=== PATIENT | male | born 1960 | race Caucasian/White ===

== ENCOUNTER 2020-11-06 08:14 | Emergency (ER) | payer OTHER ==
[~2020-11-06] VITALS: Ht 182.9 cm; Wt 83.0 kg
[~2020-11-06 08:14] MED LIST: CLON-77 PO; INSU300I SQ; VALA10008 PO; VALS80TA3 PO
[2020-11-06 08:26] VITALS: BP 187/83
[2020-11-06] MEDS ORDERED: SULF1TAB24 PO (09:32)
[2020-11-06] MEDS ORDERED: CEPH-264 PO (09:32)
--- NOTE | 2020-11-06 09:37 | PHYS DOC ---
Past Medical History Past Medical History: Anxiety, Diabetes-Type II, Hypertension Past Surgical History: No Surgical History Smoking Status: Current Every Day Smoker Alcohol Use: Occasionally Drug Use: Marijuana General Adult EDM: Chief Complaint: ABSCESS HPI: HPI: 60-year-old male presents the ED with complaints of redness and pain around his bellybutton for the past few days. Today he was scratching inside top part of his umbilicus when he noticed malodorous discharge. No history of recent procedures, surgeries or piercings. No prior history of MRSA but states his son is currently being stage for abdominal cancer. History of prediabetes that resolved after patient lost weight. Has no routine primary care physician and takes no routine medications. NKDA. Review of Systems: Review of Systems: Constitutional: Denies fever or chills. [] HENT: Denies nasal congestion or sore throat. [] Respiratory: Denies cough or shortness of breath. [] Cardiovascular: Denies chest pain or edema. [] GI: Denies nausea, vomiting, Heart Score: Risk Factors: Risk Factors: DM, Current or recent (<one month) smoker, HTN, HLP, family history of CAD, obesity. Risk Scores: Score 0 - 3: 2.5% MACE over next 6 weeks - Discharge Home Score 4 - 6: 20.3% MACE over next 6 weeks - Admit for Clinical Observation Score 7 - 10: 72.7% MACE over next 6 weeks - Early Invasive Strategies Allergies: Allergies: Allergies Coded Allergies Type Severity Reaction Last Updated Verified No Known Drug Allergies 07/31/16 No Physical Exam: PE: Constitutional: Well developed, well nourished, HENT: Normocephalic, atraumatic, Eyes: EOMI, conjunctiva normal, no discharge. Neck: Normal range of motion, supple, Cardiovascular: S1/2 present, regular rhythm Lungs & Thorax: Speaking in full sentences, bilateral equal chest rise, Abdomen: soft, no tenderness, 7x4.5 centimeter region of flat erythema, no induration surrounding umbilicus, umbilicus with scant yellow purulent discharge-no obvious abscess Skin: Warm, dry, no crepitus Back: No tenderness, no CVA tenderness. [] Extremities: No tenderness, no cyanosis, Neurologic: Alert and oriented X 3, normal motor function, normal sensory function, no focal deficits noted. [] Psychologic: Affect normal, judgement normal, mood normal. [] Current Patient Data: Vital Signs: Vital Signs Date Time Temp Pulse Resp B/P (MAP) Pulse Ox O2 Delivery O2 Flow Rate FiO2 11/06/20 08:26 97.6 69 18 187/83 (117) 98 Room Air 97.6 EKG: EKG: [] Radiology/Procedures: Radiology/Procedures: [] Course & Med Decision Making: Course & Med Decision Making Pertinent Labs and Imaging studies reviewed. (See chart for details) Concern for umbilical abscess with surrounding cellulitis s/p accidental "I&D" by pt. patient well-appearing with asymptomatic hypertension. No known h/o mrsa -we will cover for community-acquired with Keflex and Bactrim. Good rx coupons given. Will discharge home with strict ED return precautions were given for worsening rash, abdominal pain, fever or flulike illness. Encouraged urgent outpatient follow-up with PMD and/or wound care center in 48 to 72 hours. Life- threatening processes were considered but are low suspicion at this time, given history, physical exam and ED workup. Pt was educated on all prescription medications and adverse effects. All patient's questions were answered and pt was stable at time of discharge. Life/limb-threatening differential includes but is not limited to, erythema multiforme, david-stephani syndrome, toxic epidermal necrolysis, staphylococcal scalded skin syndrome, necrotizing fasciitis/myositis/cellulitis, purpura fulminans, heparin or warfarin induced skin necrosis, angioedema, anaphylaxis drug rash, disseminated intravascular coagulation, disseminated gonococcal disease, vasculitis, septicemia, petechial disorder or coagulopathy, viral exanthem, Kawasaki's disease. I spoken with the patient and her caregivers. I explained the patient's condition, diagnoses and treatment plan based on the information available to me at this time. I have answered the patient and her caregiver's questions and addressed any concerns. The patient and her caregivers have a good understanding of patient's diagnosis, condition and treatment plan as can be expected at this point. Vital signs have been stable. Patient's condition is stable and appropriate for discharge from the emergency department. Patient will pursue further outpatient evaluation with primary care physician or other designated or consulting physician as outlined in the discharge instructions. The patient and/or caregivers are agreeable to this plan of care and follow-up instructions have been explained in detail. The patient and/or caregivers have received these instructions in written form and have expressed an understanding of the discharge instructions. The patient and/or caregivers are aware that any significant change of condition or worsening of symptoms should prompt immediate return to this or the closest emergency department or call to [email or web address] Vásquez Disclaimer: Fahad Disclaimer: This electronic medical record was generated, in whole or in part, using a voice recognition dictation system. Departure Departure Impression: Primary Impression: Abdominal abscess Additional Impression: Abdominal wall cellulitis Disposition: 01 DC HOME SELF CARE/HOMELESS Condition: STABLE Referrals: NO PCP (PCP) Follow-up in 48 to 72 hours for BP and wound care check FOLLOW UP WITH FAMILY MEDICINE: Family Medicine Address: [address] [place] [address] Patient Instructions: Abscess, Care After, Cellulitis Additional Instructions: FOLLOW UP WITH WOUND CARE: [facility] Address: [address], [address] [place] [address] EMERGENCY DEPARTMENT GENERAL DISCHARGE INSTRUCTIONS Thank you for coming to [facility] Emergency Department (ED) today and trusting us with you care. We trust that you had a positive experience in our Emergency Department. If you wish to speak to the department management, you may call the Director at [phone]. YOUR FOLLOW UP INSTRUCTIONS ARE FOLLOWS: 1. Do you have a private Doctor? If you do not have a private doctor, please ask for a resource list of physicians or clinics that may be able to assist you with follow up care. 2. The Emergency Physicain has interpreted your x-rays. The X-Ray specialist will also review them. If there is a change in the findings, you will be notified in 48 hours when at all possible. 3. A lab test or culture has been done, your results will be reviewed and you will be notified if you need a change in treatment. ADDITIONAL INSTRUCTIONS AND INFORMATION: 1. Your care today has been supervised by a physician who is specially trained in emergency care. Many problems require more than one evaluation for a complete diagnosis and treatment. We recommend that you schedule your follow up appointment as recommended to ensure complete treatment of you illness or injury. If you are unable to obtain follow up care and continue to have a problem, or if your condition worsens, we recommend that you return to the ED. 2. We are not able to safely determine your condition over the phone nor are we able to give sound medical advice over the phone. For these safety reasons, if you call for medical advice we will ask you to come to the ED for further evaluation. 3. If you have any questions regarding these discharge instructions please call the ED at [phone]. SAFETY INFORMATION: In the interest of safety, wellness, and injury prevention; we encourage you to wear your sealbelt, if you smoke; quite smoking, and we encourage family to use a protective helmet for bicycling and other sporting events that present an increased risk for head injury. IF YOUR SYMPTOMS WORSEN OR NEW SYMPTOMS DEVELOP, OR YOU HAVE CONCERNS ABOUT YOUR CONDITION; OR IF YOUR CONDITION WORSENS WHILE YOU ARE WAITING FOR YOUR FOLLOW UP APPOINTMENT; EITHER CONTACT YOUR PRIMARY CARE DOCTOR, THE PHYSICIAN WHOSE NAME AND NUMBER YOU WERE GIVEN, OR RETURN TO THE ED IMMEDIATELY. Scripts Sulfamethoxazole/Trimethoprim (BACTRIM DS TABLET) 1 Each Tablet 1 TAB PO BID for infection for 10 Days, #20 TAB Prov: DIMITRI STAFFORD DO 11/06/20 Cephalexin (KEFLEX) 500 Mg Capsule 2 CAP PO Q12HR, #40 CAP Prov: DIMITRI STAFFORD DO 11/06/20 DIMITRI STAFFORD DO Nov 06, 2020 09:37
== END 2020-11-06 10:00 | disposition home or self-care (01) ==
LOC: ER 08:14
DX: L02.211 Cutaneous abscess of abdominal wall (principal); F41.9 Anxiety disorder, unspecified; E11.9 Type 2 diabetes mellitus without complications; I10 Essential (primary) hypertension; F17.200 Nicotine dependence, unspecified, uncomplicated; F12.90 Cannabis use, unspecified, uncomplicated
CPT/HCPCS: 99283

== ENCOUNTER 2022-01-26 08:42 | Emergency (ER) | payer OTHER ==
[~2022-01-26] VITALS: Ht 182.9 cm; Wt 86.0 kg
[~2022-01-26 08:42] MED LIST changes: +CEPH-264 PO; +SULF1TAB24 PO
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
[2022-01-26 09:38] LABS: ACETAMIN < 2 mcg/ml (10-30); SALIC 10.4 mg/dL (2.8-20.0)
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
[2022-01-26] MEDS ORDERED: CYCL5TAB PO (10:04)
[2022-01-26] MEDS ORDERED: IBUP-1007 PO (10:04)
[2022-01-26 10:25] VITALS: BP 169/83
== END 2022-01-26 10:25 | disposition home or self-care (01) ==
LOC: ER 08:42
DX: M54.2 Cervicalgia (principal); M54.50 Low back pain, unspecified; G89.11 Acute pain due to trauma; E11.9 Type 2 diabetes mellitus without complications; I10 Essential (primary) hypertension; F17.200 Nicotine dependence, unspecified, uncomplicated; V49.49XA Driver injured in collision with other motor vehicles in traffic accident, initial encounter; Y92.488 Other paved roadways as the place of occurrence of the external cause; Y93.89 Activity, other specified; Y99.8 Other external cause status
CPT/HCPCS: 36415; 70450; 72125; 72131; 80329; 99284-25; G0480

== ENCOUNTER 2022-03-28 16:53 | Inpatient (IN) | payer SELFPAY ==
[~2022-03-28] VITALS: Ht 182.9 cm; Wt 85.7 kg
[~2022-03-28 16:53] MED LIST changes: +CYCL5TAB PO; +IBUP-1007 PO
[2022-03-28] MEDS ORDERED: IV NORMAL SALINE 1000ML BAG 1,000 ML IV ONE (17:30)
[2022-03-28] MEDS ORDERED: hydrALAZINE 20 MG/ML VIAL. IVP ONE (17:30)
--- NOTE | 2022-03-28 17:33 | PHYS DOC ---
Past Medical History Past Medical History: Anxiety, Diabetes-Type II, Hypertension Past Surgical History: Other Additional Past Surgical Histo: ROTATOR CUFF Smoking Status: Current Every Day Smoker Alcohol Use: Heavy Drug Use: Marijuana General Adult EDM: Chief Complaint: TOE PROBLEM HPI: HPI: Patient is a 61-year-old male who presents today with left great toe and foot pain. Patient states that over the last 2 days he has had increased redness and pain in his left foot, he says that on the bottom of his great toe he has noticed a blister or callus that he has been picking out for over a couple weeks, he says that he just keeps "chipping at it with a knife" but he thought it was just a callus, he states that he does not have insurance and he has not seen his physician regarding that. Patient's blood pressure is currently 225/117, he says that again he does not take any medications for that because he does not have a primary care physician. Patient denies chest pain, shortness of breath, fever chills, or any increased pain in his leg. Review of Systems: Review of Systems: Constitutional: Denies fever or chills. [] Eyes: Denies change in visual acuity. [] HENT: Denies nasal congestion or sore throat. [] Respiratory: Denies cough or shortness of breath. [] Cardiovascular: Denies chest pain or edema. [] GI: Denies abdominal pain, nausea, vomiting, bloody stools or diarrhea. [] : Denies dysuria. [] Musculoskeletal: Left foot pain Integument: Left foot and great toe redness Neurologic: Denies headache, focal weakness or sensory changes. [] Endocrine: Denies polyuria or polydipsia. [] Lymphatic: Denies swollen glands. [] Psychiatric: Denies depression or anxiety. [] Heart Score: C/O Chest Pain: No Risk Factors: Risk Factors: DM, Current or recent (<one month) smoker, HTN, HLP, family history of CAD, obesity. Risk Scores: Score 0 - 3: 2.5% MACE over next 6 weeks - Discharge Home Score 4 - 6: 20.3% MACE over next 6 weeks - Admit for Clinical Observation Score 7 - 10: 72.7% MACE over next 6 weeks - Early Invasive Strategies Current Medications: Current Medications Medications (Trade) Dose Ordered Sig/Énstor Start Time Stop Time Status Last Admin Dose Admin Hydralazine HCl (Apresoline Inj) 10 mg 1X ONCE 03/28/22 17:30 03/28/22 17:31 UNV Sodium Chloride 1,000 ml @ 999 mls/hr 1X ONCE 03/28/22 17:30 03/28/22 18:30 UNV Allergies: Allergies: Allergies Coded Allergies Type Severity Reaction Last Updated Verified No Known Drug Allergies 07/31/16 No Physical Exam: PE: Constitutional: Well developed, well nourished, no acute distress, non-toxic appearance. [] HENT: Normocephalic, atraumatic, bilateral external ears normal, oropharynx moist, no oral exudates, nose normal. [] Eyes: PERRLA, EOMI, conjunctiva normal, no discharge. [] Neck: Normal range of motion, no tenderness, supple, no stridor. [] Cardiovascular:Heart rate regular rhythm, no murmur [] Lungs & Thorax: Bilateral breath sounds clear to auscultation [] Abdomen: Bowel sounds normal, soft, no tenderness, no masses, no pulsatile masses. [] Skin: Left foot is reddened from midfoot to the junction of the foot and toes, area is reddened swollen and warm to touch, great toe has a medial soft spot area that is pale to touch, patient also has a diabetic ulcer on the bottom of his great toe, no drainage noted Back: No tenderness, no CVA tenderness. [] Extremities: Left foot is swollen and reddened, patient has limited range of motion of the great toe due to pain, dorsalis pedis and posterior tibial pulse is 2+, cap refill is less than 2 seconds sensory is diminished in the toes, pat ient is able to ambulate. Neurologic: Alert and oriented X 3, normal motor function, normal sensory funct ion, no focal deficits noted. [] Psychologic: Affect normal, judgement normal, mood normal. [] Current Patient Data: Labs: Laboratory Tests Test 03/28/22 17:25 03/28/22 18:55 White Blood Count 9.7 x10^3/uL Red Blood Count 4.68 x10^6/uL Hemoglobin 15.0 g/dL Hematocrit 42.7 % Mean Corpuscular Volume 91 fL Mean Corpuscular Hemoglobin 32 pg Mean Corpuscular Hemoglobin Concent 35 g/dL Red Cell Distribution Width 13.4 % Platelet Count 162 x10^3/uL Neutrophils (%) (Auto) 70 % Lymphocytes (%) (Auto) 20 % Monocytes (%) (Auto) 7 % Eosinophils (%) (Auto) 2 % Basophils (%) (Auto) 1 % Neutrophils # (Auto) 6.8 x10^3/uL Lymphocytes # (Auto) 2.0 x10^3/uL Monocytes # (Auto) 0.7 x10^3/uL Eosinophils # (Auto) 0.2 x10^3/uL Basophils # (Auto) 0.1 x10^3/uL Sodium Level 139 mmol/L Potassium Level 3.7 mmol/L Chloride Level 104 mmol/L Carbon Dioxide Level 25 mmol/L Anion Gap 10 Blood Urea Nitrogen 20 mg/dL Creatinine 1.1 mg/dL Estimated GFR (Cockcroft-Gault) 68.5 BUN/Creatinine Ratio 18 Glucose Level 136 mg/dL Lactic Acid Level 0.8 mmol/L Calcium Level 9.9 mg/dL Total Bilirubin 0.5 mg/dL Aspartate Amino Transf (AST/SGOT) 11 U/L Alanine Aminotransferase (ALT/SGPT) 19 U/L Alkaline Phosphatase 82 U/L Troponin I High Sensitivity 23 ng/L Total Protein 8.2 g/dL Albumin 3.7 g/dL Albumin/Globulin Ratio 0.8 Procalcitonin < 0.10 ng/mL Urine Collection Type Unknown Urine Color (Auto) Light yellow Urine Turbidity Clear Urine pH (Auto) 6.0 Urine Specific [place] 1.015 Urine Protein (Auto) 50 mg/dL Urine Glucose (Auto)(UA) Negative mg/dL Urine Ketones (Auto) 10 mg/dL Urine Blood (Auto) Negative Urine Nitrite Negative Urine Bilirubin (Auto) Negative Urine Urobilinogen (Auto) Normal mg/dL Urine Leukocyte Esterase (Auto) Negative Urine RBC 0 /HPF Urine WBC 0 /HPF Urine Bacteria 0 /HPF Urine Mucus Slight /LPF Current Medications Medications (Trade) Dose Ordered Sig/Néstor Route PRN Reason Start Time Stop Time Status Last Admin Dose Admin Hydralazine HCl (Apresoline Inj) 10 mg 1X ONCE IVP 03/28/22 17:30 03/28/22 17:31 DC 03/28/22 17:39 Sodium Chloride 1,000 ml @ 999 mls/hr 1X ONCE IV 03/28/22 17:30 03/28/22 18:30 DC 03/28/22 17:39 Vancomycin HCl (Vanco Per Pharmacy) 1 each PRN DAILY PRN MC SEE COMMENTS 03/28/22 18:30 UNV Piperacillin Sod/ Tazobactam Sod (Zosyn Per Pharmacy) 1 each PRN DAILY PRN MC SEE COMMENTS 03/28/22 18:30 UNV Piperacillin Sod/ Tazobactam Sod 3.375 gm/Sodium Chloride 50 ml @ 100 mls/hr 1X ONCE IV 03/28/22 19:00 03/28/22 19:29 Vancomycin HCl 2 gm/Sodium Chloride 500 ml @ 250 mls/hr 1X ONCE IV 03/28/22 19:00 03/28/22 20:59 Clonidine HCl (Catapres) 0.1 mg 1X ONCE PO 03/28/22 18:45 03/28/22 18:58 DC 03/28/22 18:51 Vital Signs: Vital Signs Date Time Temp Pulse Resp B/P (MAP) Pulse Ox O2 Delivery O2 Flow Rate FiO2 03/28/22 18:51 86 208/144 03/28/22 18:40 93 16 233/99 (143) 99 Room Air 03/28/22 18:01 71 16 197/96 (129) 100 Room Air 03/28/22 17:39 82 198/88 03/28/22 16:58 98.4 91 18 227/110 (149) 99 98.4 Vital Signs Date Time Temp Pulse Resp B/P (MAP) Pulse Ox O2 Delivery O2 Flow Rate FiO2 03/28/22 16:58 98.4 91 18 227/110 (149) 99 98.4 EKG: EKG: [] Radiology/Procedures: Radiology/Procedures: [REASON: infection r/o osteo great toe PROCEDURE: FOOT LEFT 3V Three-view left foot dated 03/28/2022. No comparison available. CLINICAL INDICATION: Pain. FINDINGS: 3 views left foot show normal bony alignment. No displaced fracture. There is ill-definition of the cortex at the base of the distal phalanx of the great toe laterally. No definite bone destruction. There is soft tissue swelling. No soft tissue gas. Mild degenerative changes at the first DIP joint. IMPRESSION: 1. Slight cortical irregularity at the base of the distal phalanx great toe laterally. This could be acute or chronic. Early osteomyelitis is not excluded. If indicated, MRI could better evaluate. 2. Mild degenerative changes of the first DIP joint with overlying soft tissue swelling. Electronically signed by: Cody Avalos MD (03/28/2022 6:07 PM) [facility] Course & Med Decision Making: Course & Med Decision Making Pertinent Labs and Imaging studies reviewed. (See chart for details) [Upon patient's initial exam patient is expressing concerns that he does not have insurance and he is asking if we had any resources for him to contact with about being admitted and the challenges of paying off his hospitalization bill I did inform him that the social work manager will see him on an inpatient basis so that he/she may help him get resources. [address] Cooley regarding this patient and he is agreeable to admitting this patient for IV antibiotic therapy due to the possibility of osteo in a diabetic patient, I did speak to patient he is agreeable to admitting and staying for additional therapy. Fahad Disclaimer: Fahad Disclaimer: This electronic medical record was generated, in whole or in part, using a voice recognition dictation system. Departure Departure Impression: Primary Impression: Cellulitis of great toe of left foot Additional Impressions: Cellulitis of left foot Hypertension Qualified Codes: I10 - Essential (primary) hypertension Disposition: 09 ADMITTED INPATIENT Admitting Physician: LUNA Condition: STABLE Referrals: NO PCP (PCP) JOSIAH VUONG APRN March 28, 2022 17:33
[2022-03-28 17:37] LABS: BASO # 0.1 x10^3/uL (0.0-0.2); BASO % 1 % (0-3); EOS # 0.2 x10^3/uL (0.0-0.7); EOS % 2 % (0-3); HEMATOCRIT 42.7 % (39.0-53.0); LYMPH % 20 % (24-48); MEAN CORPUSCULAR HEMOGLOBIN 32 pg (25-35); MEAN CORPUSCULAR HGB CONC 35 g/dL (31-37); MEAN CORPUSCULAR VOLUME 91 fL (79-100); MONO # 0.7 x10^3/uL (0.0-1.1); MONO % 7 % (0-9); NEUT # 6.8 x10^3/uL (1.8-7.7); NEUT % 70 % (31-73); PLATELET COUNT 162 x10^3/uL (140-400); RED BLOOD COUNT 4.68 x10^6/uL (4.30-5.70); RED CELL DISTRIBUTION WIDTH 13.4 % (11.5-14.5); WHITE BLOOD COUNT 9.7 x10^3/uL (4.0-11.0)
--- NOTE | 2022-03-28 18:09 | RAD ---
Three-view left foot dated 03/28/2022. No comparison available. CLINICAL INDICATION: Pain. FINDINGS: 3 views left foot show normal bony alignment. No displaced fracture. There is ill-definition of the c ortex at the base of the distal phalanx of the great toe laterally. No definite bone destruction. The re is soft tissue swelling. No soft tissue gas. Mild degenerative changes at the first DIP joint. IMPRESSION: 1. Slight cortical irregularity at the base of the distal phalanx great toe laterally. This could be acute or chronic. Early osteomyelitis is not excluded. If indicated, MRI could better evaluate. 2. Mild degenerative changes of the first DIP joint with overlying soft tissue swelling. Electronically signed by: Cody Avalos MD (03/28/2022 6:07 PM) [facility]
[2022-03-28 18:12] LABS: CALCIUM 9.9 mg/dL (8.5-10.1); CREATININE 1.1 mg/dL (0.7-1.3); GFR 68.5; POTASSIUM 3.7 mmol/L (3.5-5.1)
[2022-03-28 18:18] LABS: ALBUMIN 3.7 g/dL (3.4-5.0); ALBUMIN/GLOBULIN RATIO 0.8 (1.0-1.7); TOTAL BILIRUBIN 0.5 mg/dL (0.2-1.0); TOTAL PROTEIN 8.2 g/dL (6.4-8.2)
[2022-03-28] MEDS ORDERED: PIP/TAZO PER PHARMACY MC PRN (18:30)
[2022-03-28] MEDS ORDERED: cloNIDine HCL 0.1 MG TABLET PO ONE (18:45)
[2022-03-28] MEDS ORDERED: cloNIDine HCL 0.1 MG TABLET ONE (18:49)
[2022-03-28] MEDS ORDERED: PIPERACILLIN/TAZOBACTAM 3.375 GM in IV NORMAL SALINE 50ML 50 ML IV ONE (19:00)
[2022-03-28] MEDS ORDERED: VANCOMYCIN 2 GM in IV NORMAL SALINE 500ML BAG 500 ML IV ONE (19:00)
[2022-03-28 19:12] LABS: BACTERIA,URINE 0 /HPF (0-FEW); RBC,URINE 0 /HPF (0-2); WBC,URINE 0 /HPF (0-4)
[2022-03-28] MEDS: VANCOMYCIN PER PHARMACY MC PRN (20:31)
--- NOTE | 2022-03-28 20:34 | NUR ---
Pharmacy Vancomycin Dosing Note S:Consulted to monitor and dose vancomycin started 03/28/22. O:BHARGAV PRADHAN Jovanna is a 61 year old M with Cellulitis . Height: 6 feet, 0 inches Weight: 88.0 kg [place] Body Weight: 77.60 Adjusted Body Weight: 81.76 Dosing Weight: Actual Other Antibiotics: ZOSYN LABS: Last BUN: Last Creatinine: 1.1 Creatinine Clearance: 84 mL/min Last WBC: 9.7 Last Procalcitonin: 0.1 Tmax (past 24 hours): Microbiology: I/O: Drug Levels: Last level: on at Last dose given 03/28/22 at 2000 Vancomycin Dosing: Loading Dose: 2000 mg x1 Dosing Weight: Actual Target Trough: 10-20 A: Based on: WEIGHT AND RENAL FUNCTION, VANCOMYCIN 2GM IV BOLUS GIVEN, P: 1. Begin Vancomycin 1250 mg IV q12h 2. Follow up Trough level on 03/30/22 at 0730 3. Pharmacy will continue to monitor, follow and adjust therapy as needed. PATRICIA DICKSON Wei, 03/28/226
[2022-03-28] MEDS: ACETAMINOPHEN 325 MG TABLET. PO PRN (22:00)
--- NOTE | 2022-03-28 22:00 | NUR ---
Pt arrived via gurney. Admitted to room 664. Assessment and vitals completed and documented. Pt reports that he should be taking medication but has not for over a year due to not having insurance or a primary care provider. 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 Pt states that he is diabetic but doesn't check his blood sugar. Pt is orientated to room, policy and procedures. Pt has no needs at this time. Addendum: 03/29/22 at 0714 by KRYSTINA BURNHAM RN Left foot presents with cellulites and purple in color.
[2022-03-28 22:52] VITALS: BP 185/75
[2022-03-29] VITALS (7 sets, daily range): BP systolic 163–202; BP diastolic 59–81
[2022-03-29] MEDS: PIPERACILLIN/TAZOBACTAM 3.375 GM in IV NORMAL SALINE 50ML 50 ML IV SCH ×2 (00:04→05:41)
[2022-03-29] MEDS: VANCOMYCIN 1.25 GM in IV NORMAL SALINE 250ML 250 ML IV SCH ×2 (08:16→20:24)
[2022-03-29] MEDS: ACETAMINOPHEN 325 MG TABLET. PO PRN (08:22)
--- NOTE | 2022-03-29 11:15 | PDOC1 ---
History and Physical Date of Admission Date of Admission DATE: 03/29/22 TIME: 10:55 Identification/Chief Complaint Chief Complaint Left foot cellulitis Source Source: Patient History of Present Illness History of Present Illness Patient is a 61-year-old male with past medical history DM2, HTN, anxiety, presents to the ED with complaints of left first toe pain. He has a history of a callus or blister on the bottom of his left first toe that he has been picking at for couple of weeks. Sometime last year he popped the blister that drained some purulent material. Patient states this then healed at zone. He reports w orsening pain on walking and erythema over the past 3 days. He has no insurance and states he has not seen a doctor for his diabetes or hypertension. His blood pressure in the ED was 225/117. Labs on admission showed WBC 9.7, ESR 34, procalcitonin <0.10, lactic acid 0.8, CBG 136. X-ray was left foot showed acute or chronic cortical irregularity at the distal phalanx of his great toe; early osteomyelitis could not be excluded. Patient received IV antibiotics in the ED. He has been admitted for further medical management. Past Medical History Past Medical History DM2, HTN, anxiety Past Surgical History Past Surgical History Rotator cuff surgery Family History Family History DM2, HTN Social History Smoke: 1 pack per day ALCOHOL: heavy Drugs: Marijuana Current Problem List Problem List Problems Medical Problems: (1) Cellulitis of great toe of left foot Status: Acute (2) Cellulitis of left foot Status: Acute (3) Hypertension Status: Acute Current Medications Current Medications Current Medications Hydralazine HCl (Apresoline Inj) 10 mg 1X ONCE IVP Last administered on 03/28/22at 17:39; Start 03/28/22 at 17:30; Stop 03/28/22 at 17:31; Status DC Sodium Chloride 1,000 ml @ 999 mls/hr 1X ONCE IV Last administered on 2at 17:39; Start 03/28/22 at 17:30; Stop 03/28/22 at 18:30; Status DC Vancomycin HCl (Vanco Per Pharmacy) 1 each PRN DAILY PRN MC SEE COMMENTS Last administered on 03/28/22at 20:31; Start 03/28/22 at 18:30 Piperacillin Sod/ Tazobactam Sod (Zosyn Per Pharmacy) 1 each PRN DAILY PRN MC SEE COMMENTS; Start 03/28/22 at 18:30 Piperacillin Sod/ Tazobactam Sod 3.375 gm/Sodium Chloride 50 ml @ 100 mls/hr 1X ONCE IV Last administered on 03/28/22at 19:33; Start 03/28/22 at 19:00; Stop 03/28/22 at 19:29; Status DC Vancomycin HCl 2 gm/Sodium Chloride 500 ml @ 250 mls/hr 1X ONCE IV Last administered on 03/28/22at 20:00; Start 03/28/22 at 19:00; Stop 03/28/22 at 20:59; Status DC Clonidine HCl (Catapres) 0.1 mg 1X ONCE PO Last administered on 03/28/22at 18:51; Start 03/28/22 at 18:45; Stop 03/28/22 at 18:58; Status DC Piperacillin Sod/ Tazobactam Sod 3.375 gm/Sodium Chloride 50 ml @ 100 mls/hr Q6HRS IV Last administered on 03/29/22at 05:41; Start 03/29/22 at 00:00 Vancomycin HCl 1.25 gm/Sodium Chloride 250 ml @ 167 mls/hr Q12H IV Last administered on 03/29/22at 08:16; Start 03/29/22 at 08:00 Vancomycin HCl (Vancomycin Trough Level) 1 each 1X ONCE MC ; Start 03/30/22 at 07:30; Stop 03/30/22 at 07:31 Acetaminophen (Tylenol) 650 mg PRN Q6HRS PRN PO MILD PAIN / TEMP > 100.3'F Last administered on 03/29/22at 08:22; Start 03/28/22 at 21:45 Active Scripts Active Cyclobenzaprine Hcl 5 Mg Tablet 1 Tab PO TID Ibuprofen 600 Mg Tablet 600 Mg PO PRN Q6HRS PRN Bactrim Ds Tablet (Sulfamethoxazole/Trimethoprim) 1 Each Tablet 1 Tab PO BID 10 Days Keflex (Cephalexin) 500 Mg Capsule 2 Cap PO Q12HR Reported Clonazepam (Clonazepam) 0.5 Mg Tablet 1 Tab PO BID Toujeo Solostar (Insulin Glargine,Hum.rec.anlog) 300 Unit/1 Ml Insuln.pen 20 Unit SQ DAILYWSUP Diovan (Valsartan) 80 Mg Tablet 0 PO DAILY Valacyclovir (Valacyclovir Hcl) 1,000 Mg Tablet 1 Tab PO DAILY Allergies Allergies: Coded Allergies: No Known Drug Allergies (Unverified , 07/31/16) ROS Review of System GENERAL: No history of weight change, weakness or fevers. SKIN: No bruising, hair changes or rashes. EYES: No blurred, double or loss of vision. NOSE AND THROAT: No history of nosebleeds, hoarseness or sore throat. HEART: Denies chest pain, denies palpitations. LUNGS: Denies cough, hemoptysis, wheezing or shortness of breath. GASTROINTESTINAL: Denies nausea, vomiting, abdominal pain. GENITOURINARY: Denies dysuria, frequency, urgency, hematuria. NEUROLOGIC: Denies history of numbness, tingling, tremor or weakness. PSYCHIATRIC: Denies anxiety, denies depression. ENDOCRINE: No history of heat or cold intolerance, polyuria or polydipsia. EXTREMITIES: Left first toe pain and erythema. Pain on walking. Denies muscle weakness or stiffness. Physical Exam Physical Exam General: Alert, Oriented X3, Cooperative, No acute distress HEENT: PERRLA, EOMI Lungs: Clear to auscultation, Normal air movement Heart: RRR, no murmurs Cardiovascular: S1, S2 Abdomen: Normal bowel sounds, Soft, No tenderness Extremities: Left first toe with 1 cm circumferential callus on the plantar aspect. No clubbing, No cyanosis Skin: Erythematous left first toe. No rashes, No significant lesion Neuro: Normal speech, Normal tone, Sensation intact Psych/Mental Status: Mental status NL, Mood NL Vitals Vitals Vital Signs Date Time Temp Pulse Resp B/P (MAP) Pulse Ox O2 Delivery O2 Flow Rate FiO2 03/29/22 07:00 97.8 61 17 179/79 (112) 97 Room Air 97.8 Labs Labs Laboratory Tests Test 03/28/22 17:25 03/28/22 18:55 03/28/22 21:15 03/29/22 07:49 White Blood Count 9.7 x10^3/uL (4.0-11.0) Red Blood Count 4.68 x10^6/uL (4.30-5.70) Hemoglobin 15.0 g/dL (13.0-17.5) Hematocrit 42.7 % (39.0-53.0) Mean Corpuscular Volume 91 fL (79-100) Mean Corpuscular Hemoglobin 32 pg (25-35) Mean Corpuscular Hemoglobin Concent 35 g/dL (31-37) Red Cell Distribution Width 13.4 % (11.5-14.5) Platelet Count 162 x10^3/uL (140-400) Neutrophils (%) (Auto) 70 % (31-73) Lymphocytes (%) (Auto) 20 % (24-48) Monocytes (%) (Auto) 7 % (0-9) Eosinophils (%) (Auto) 2 % (0-3) Basophils (%) (Auto) 1 % (0-3) Neutrophils # (Auto) 6.8 x10^3/uL (1.8-7.7) Lymphocytes # (Auto) 2.0 x10^3/uL (1.0-4.8) Monocytes # (Auto) 0.7 x10^3/uL (0.0-1.1) Eosinophils # (Auto) 0.2 x10^3/uL (0.0-0.7) Basophils # (Auto) 0.1 x10^3/uL (0.0-0.2) Erythrocyte Sedimentation Rate 34 (0-15) Sodium Level 139 mmol/L (136-145) Potassium Level 3.7 mmol/L (3.5-5.1) Chloride Level 104 mmol/L (98-107) Carbon Dioxide Level 25 mmol/L (21-32) Anion Gap 10 (6-14) Blood Urea Nitrogen 20 mg/dL (8-26) Creatinine 1.1 mg/dL (0.7-1.3) Estimated GFR (Cockcroft-Gault) 68.5 BUN/Creatinine Ratio 18 (6-20) Glucose Level 136 mg/dL (70-99) Lactic Acid Level 0.8 mmol/L (0.4-2.0) Calcium Level 9.9 mg/dL (8.5-10.1) Total Bilirubin 0.5 mg/dL (0.2-1.0) Aspartate Amino Transf (AST/SGOT) 11 U/L (15-37) Alanine Aminotransferase (ALT/SGPT) 19 U/L (16-63) Alkaline Phosphatase 82 U/L (46-116) Troponin I High Sensitivity 23 ng/L (4-75) Total Protein 8.2 g/dL (6.4-8.2) Albumin 3.7 g/dL (3.4-5.0) Albumin/Globulin Ratio 0.8 (1.0-1.7) Procalcitonin < 0.10 ng/mL (0.00-0.10) Urine Collection Type Unknown Urine Color (Auto) Light yellow Urine Turbidity Clear Urine pH (Auto) 6.0 (<5.0-8.0) Urine Specific [place] 1.015 (1.000-1.030) Urine Protein (Auto) 50 mg/dL (Negative) Urine Glucose (Auto)(UA) Negative mg/dL (Negative) Urine Ketones (Auto) 10 mg/dL (Negative) Urine Blood (Auto) Negative (Negative) Urine Nitrite Negative (Negative) Urine Bilirubin (Auto) Negative (Negative) Urine Urobilinogen (Auto) Normal mg/dL (Normal) Urine Leukocyte Esterase (Auto) Negative (Negative) Urine RBC 0 /HPF (0-2) Urine WBC 0 /HPF (0-4) Urine Bacteria 0 /HPF (0-FEW) Urine Mucus Slight /LPF Glucose (Fingerstick) 185 mg/dL (70-99) 158 mg/dL (70-99) Laboratory Tests Test 03/28/22 17:25 03/28/22 18:55 03/28/22 21:15 03/29/22 07:49 White Blood Count 9.7 x10^3/uL (4.0-11.0) Red Blood Count 4.68 x10^6/uL (4.30-5.70) Hemoglobin 15.0 g/dL (13.0-17.5) Hematocrit 42.7 % (39.0-53.0) Mean Corpuscular Volume 91 fL (79-100) Mean Corpuscular Hemoglobin 32 pg (25-35) Mean Corpuscular Hemoglobin Concent 35 g/dL (31-37) Red Cell Distribution Width 13.4 % (11.5-14.5) Platelet Count 162 x10^3/uL (140-400) Neutrophils (%) (Auto) 70 % (31-73) Lymphocytes (%) (Auto) 20 % (24-48) Monocytes (%) (Auto) 7 % (0-9) Eosinophils (%) (Auto) 2 % (0-3) Basophils (%) (Auto) 1 % (0-3) Neutrophils # (Auto) 6.8 x10^3/uL (1.8-7.7) Lymphocytes # (Auto) 2.0 x10^3/uL (1.0-4.8) Monocytes # (Auto) 0.7 x10^3/uL (0.0-1.1) Eosinophils # (Auto) 0.2 x10^3/uL (0.0-0.7) Basophils # (Auto) 0.1 x10^3/uL (0.0-0.2) Erythrocyte Sedimentation Rate 34 (0-15) Sodium Level 139 mmol/L (136-145) Potassium Level 3.7 mmol/L (3.5-5.1) Chloride Level 104 mmol/L (98-107) Carbon Dioxide Level 25 mmol/L (21-32) Anion Gap 10 (6-14) Blood Urea Nitrogen 20 mg/dL (8-26) Creatinine 1.1 mg/dL (0.7-1.3) Estimated GFR (Cockcroft-Gault) 68.5 BUN/Creatinine Ratio 18 (6-20) Glucose Level 136 mg/dL (70-99) Lactic Acid Level 0.8 mmol/L (0.4-2.0) Calcium Level 9.9 mg/dL (8.5-10.1) Total Bilirubin 0.5 mg/dL (0.2-1.0) Aspartate Amino Transf (AST/SGOT) 11 U/L (15-37) Alanine Aminotransferase (ALT/SGPT) 19 U/L (16-63) Alkaline Phosphatase 82 U/L (46-116) Troponin I High Sensitivity 23 ng/L (4-75) Total Protein 8.2 g/dL (6.4-8.2) Albumin 3.7 g/dL (3.4-5.0) Albumin/Globulin Ratio 0.8 (1.0-1.7) Procalcitonin < 0.10 ng/mL (0.00-0.10) Urine Collection Type Unknown Urine Color (Auto) Light yellow Urine Turbidity Clear Urine pH (Auto) 6.0 (<5.0-8.0) Urine Specific [place] 1.015 (1.000-1.030) Urine Protein (Auto) 50 mg/dL (Negative) Urine Glucose (Auto)(UA) Negative mg/dL (Negative) Urine Ketones (Auto) 10 mg/dL (Negative) Urine Blood (Auto) Negative (Negative) Urine Nitrite Negative (Negative) Urine Bilirubin (Auto) Negative (Negative) Urine Urobilinogen (Auto) Normal mg/dL (Normal) Urine Leukocyte Esterase (Auto) Negative (Negative) Urine RBC 0 /HPF (0-2) Urine WBC 0 /HPF (0-4) Urine Bacteria 0 /HPF (0-FEW) Urine Mucus Slight /LPF Glucose (Fingerstick) 185 mg/dL (70-99) 158 mg/dL (70-99) Images Images PATIENT: BHARGAV PRADHAN SACCOUNT: [id number] : 1960 LOCATION: ER AGE: 61 SEX: M EXAM STATUS: REG ER ORD. PHYSICIAN: JOSIAH VUONG APRN REASON: infection r/o osteo great toe PROCEDURE: FOOT LEFT 3V Three-view left foot dated 03/28/2022. No comparison available. CLINICAL INDICATION: Pain. FINDINGS: 3 views left foot show normal bony alignment. No displaced fracture. There is ill-definition of the cortex at the base of the distal phalanx of the great toe laterally. No definite bone destruction. There is soft tissue swelling. No soft tissue gas. Mild degenerative changes at the first DIP joint. IMPRESSION: 1. Slight cortical irregularity at the base of the distal phalanx great toe laterally. This could be acute or chronic. Early osteomyelitis is not excluded. If indicated, MRI could better evaluate. 2. Mild degenerative changes of the first DIP joint with overlying soft tissue swelling. VTE Prophylaxis Ordered VTE Prophylaxis Devices: No VTE Pharmacological Prophylaxi: Yes Assessment/Plan Assessment/Plan Cellulitis left first toe Possible osteomyelitis left first toe Uncontrolled HTN DM2 Anxiety Plan: Patient notes improvement in erythema with IV antibiotics Will change antibiotic to Rocephin 2 g and continue vancomycin Consult placed to podiatry. Will need MRI to further evaluate osteomyelitis. If evidence of osteomyelitis will consult ID. Will initiate patient on blood pressure medication. Due to evidence of proteinuria this can be JOSE-I/ARB. IV hydralazine or amlodipine as needed. Blood glucose 136. Will order A1c and treat with MDSS for now. FEN - ADA diet PPX - Heparin FULL CODE/surrogate decision-maker is his daughter (An Ford) Dispo - inpatient for above Justifications for Admission Other Justification RAUL GARCIA MD March 29, 2022 11:15
[2022-03-29] MEDS ORDERED: MAG HYDROX/ALUMINUM HYD/SIMETH 30 ML ORAL.SUSP PO PRN (11:30)
[2022-03-29] MEDS ORDERED: CALCIUM CARBONATE 500 MG TAB.CHEW PO PRN (11:30)
[2022-03-29] MEDS ORDERED: LABETALOL 20 MG/4 ML DISP.SYRIN. IVP PRN (11:30)
[2022-03-29] MEDS ORDERED: HYDROcodone/APAP 5/325MG 1 TAB TABLET PO PRN (11:30)
[2022-03-29] MEDS ORDERED: ACETAMINOPHEN 325 MG TABLET. PO PRN (11:30)
[2022-03-29] MEDS ORDERED: ONDANSETRON PF 4 MG/2 ML VIAL. IVP PRN (11:30)
[2022-03-29] MEDS ORDERED: ZOLPIDEM 5 MG TABLET. PO PRN (11:30)
[2022-03-29] MEDS ORDERED: LISINOPRIL 20 MG TABLET PO SCH (12:00)
[2022-03-29] MEDS: cefTRIAXone IV Push 2 GM VIAL. IVP SCH (12:18)
[2022-03-29] MEDS: VANCOMYCIN PER PHARMACY MC PRN (13:40)
--- NOTE | 2022-03-29 14:28 | NUR ---
SS following for discharge planning. SS reviewed pt chart and discussed with pt RN. Pt is from home and is currently on room air. Pt on IV Rocephin and IV Vancomycin. Self pay. Med Assist following. SS will continue to follow for discharge planning.
[2022-03-29] MEDS: HEPARIN for SUB-Q USE 5,000 UNIT/ML VIAL. SQ SCH ×2 (15:52→21:43)
[2022-03-29] MEDS: LACTOBACILLUS RHAMNOSUS GG 1 CAPSULE. PO SCH (20:23)
[2022-03-30 03:21] LABS: HEMOGLOBIN A1C 7.5 % (4.8-5.6)
[2022-03-30 03:41] VITALS: BP 121/67
[2022-03-30] MEDS: HEPARIN for SUB-Q USE 5,000 UNIT/ML VIAL. SQ SCH ×3 (06:18→22:00)
[2022-03-30 07:00] VITALS: BP 162/77
[2022-03-30 08:00] LABS: CALCIUM 9.1 mg/dL (8.5-10.1); GFR 76.5; POTASSIUM 3.9 mmol/L (3.5-5.1)
[2022-03-30] MEDS: VANCOMYCIN 1.25 GM in IV NORMAL SALINE 250ML 250 ML IV SCH ×2 (09:31→19:59)
[2022-03-30] MEDS: LACTOBACILLUS RHAMNOSUS GG 1 CAPSULE. PO SCH ×2 (09:31→22:12)
--- NOTE | 2022-03-30 10:24 | PDOC2 ---
CONSULT Date of Consult Date of Consult DATE: 03/30/22 TIME: 10:20 Reason for Consult Reason for Consult: Left foot cellulitis Referring Physician Referring Physician: Dr. Nicholson Identification/Chief Complaint Chief Complaint Left foot swelling, pain Source Source: Patient History of Present Illness Reason for Visit: Patient with history of unmanaged type 2 diabetes, peripheral neuropathy, hypertension who was admitted with left foot cellulitis and ulcer. Upon admission, patient was found afebrile without leukocytosis. However x-ray was concerning for osteomyelitis at the lateral hallux IPJ without any soft tissue emphysema. Patient received 1 dose of IV vancomycin and Zosyn. As an inpatient, he has been receiving ceftriaxone and vancomycin. 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 A blister developed on the side of the L big toe a few days ago without any inciting events. It was draining pus at first and then blood. then the redness developed on the top of the foot. Otherwise, patient denies any constitutional symptoms. Social History 1 pack per day ALCOHOL: heavy Drugs: Marijuana Current Problem List Problem List Problems Medical Problems: (1) Cellulitis of great toe of left foot Status: Acute (2) Cellulitis of left foot Status: Acute (3) Hypertension Status: Acute Current Medications Current Medications Current Medications Hydralazine HCl (Apresoline Inj) 10 mg 1X ONCE IVP Last administered on 03/28/22at 17:39; Start 03/28/22 at 17:30; Stop 03/28/22 at 17:31; Status DC Sodium Chloride 1,000 ml @ 999 mls/hr 1X ONCE IV Last administered on 03/28/22at 17:39; Start 03/28/22 at 17:30; Stop 03/28/22 at 18:30; Status DC Vancomycin HCl (Vanco Per Pharmacy) 1 each PRN DAILY PRN MC SEE COMMENTS Last administered on 03/29/22at 13:40; Start 03/28/22 at 18:30 Piperacillin Sod/ Tazobactam Sod (Zosyn Per Pharmacy) 1 each PRN DAILY PRN MC SEE COMMENTS; Start 03/28/22 at 18:30; Stop 03/29/22 at 11:02; Status DC Piperacillin Sod/ Tazobactam Sod 3.375 gm/Sodium Chloride 50 ml @ 100 mls/hr 1X ONCE IV Last administered on 03/28/22at 19:33; Start 03/28/22 at 19:00; Stop 03/28/22 at 19:29; Status DC Vancomycin HCl 2 gm/Sodium Chloride 500 ml @ 250 mls/hr 1X ONCE IV Last administered on 03/28/22at 20:00; Start 03/28/22 at 19:00; Stop 03/28/22 at 20:59; Status DC Clonidine HCl (Catapres) 0.1 mg 1X ONCE PO Last administered on 03/28/22at 18:51; Start 03/28/22 at 18:45; Stop 03/28/22 at 18:58; Status DC Piperacillin Sod/ Tazobactam Sod 3.375 gm/Sodium Chloride 50 ml @ 100 mls/hr Q6HRS IV Last administered on 03/29/22at 05:41; Start 03/29/22 at 00:00; Stop 03/29/22 at 11:02; Status DC Vancomycin HCl 1.25 gm/Sodium Chloride 250 ml @ 167 mls/hr Q12H IV Last administered on 03/30/22at 09:31; Start 03/29/22 at 08:00 Vancomycin HCl (Vancomycin Trough Level) 1 each 1X ONCE MC Last administered on 03/30/22at 07:30; Start 03/30/22 at 07:30; Stop 03/30/22 at 07:31; Status DC Acetaminophen (Tylenol) 650 mg PRN Q6HRS PRN PO MILD PAIN / TEMP > 100.3'F Last administered on 03/29/22at 08:22; Start 03/28/22 at 21:45; Stop 03/29/22 at 11:43; Status DC Ceftriaxone Sodium (Rocephin) 2 gm Q24H IVP Last administered on 03/29/22at 12:18; Start 03/29/22 at 12:00 Lisinopril (Prinivil) 20 mg DAILY PO ; Start 03/29/22 at 12:00; Stop 03/29/22 at 11:20; Status DC Hydralazine HCl (Apresoline Inj) 10 mg PRN Q4HRS PRN IVP ELEVATED BP, SEE COMMENTS; Start 03/29/22 at 11:30 Amlodipine Besylate (Norvasc) 10 mg DAILY PO Last administered on 03/30/22at 09:32; Start 03/29/22 at 12:00 Ondansetron HCl (Zofran) 4 mg PRN Q6HRS PRN IVP NAUSEA/VOMITING; Start 03/29/22 at 11:30 Al Hydroxide/Mg Hydroxide (Mylanta Plus Xs) 30 ml PRN Q3HRS PRN PO HEARTBURN / GAS; Start 03/29/22 at 11:30 Calcium Carbonate/ Glycine (Tums) 500 mg PRN Q3HRS PRN PO UPSET STOMACH; Start 03/29/22 at 11:30 Zolpidem Tartrate (Ambien) 5 mg PRN QHS PRN PO INSOMNIA, MAY REPEAT IN 1HR; Start 03/29/22 at 11:30 Acetaminophen/ Hydrocodone Bitart (Lortab 5/325) 1 tab PRN Q4HRS PRN PO MILD PAIN 1-3; Start 03/29/22 at 11:30 Acetaminophen/ Hydrocodone Bitart (Lortab 5/325) 2 tab PRN Q4HRS PRN PO MODERATE PAIN, SEVERE PAIN; Start 03/29/22 at 11:30 Acetaminophen (Tylenol) 650 mg PRN Q6HRS PRN PO Headaches, Temp > 101.5F; Start 03/29/22 at 11:30 Heparin Sodium (Porcine) (Heparin Sodium) 5,000 unit Q8HRS SQ Last administered on 03/30/22at 06:18; Start 03/29/22 at 14:00 Labetalol HCl (Normodyne Iv Push) 20 mg PRN Q2HR PRN IVP HYPERTENSION; Start 03/29/22 at 11:30 Lactobacillus Rhamnosus (Culturelle) 1 cap BID PO Last administered on 03/30/22at 09:31; Start 03/29/22 at 21:00 Active Scripts Active Cyclobenzaprine Hcl 5 Mg Tablet 1 Tab PO TID Ibuprofen 600 Mg Tablet 600 Mg PO PRN Q6HRS PRN Bactrim Ds Tablet (Sulfamethoxazole/Trimethoprim) 1 Each Tablet 1 Tab PO BID 10 Days Keflex (Cephalexin) 500 Mg Capsule 2 Cap PO Q12HR Reported Clonazepam (Clonazepam) 0.5 Mg Tablet 1 Tab PO BID Toujeo Solostar (Insulin Glargine,Hum.rec.anlog) 300 Unit/1 Ml Insuln.pen 20 Unit SQ DAILYWSUP Diovan (Valsartan) 80 Mg Tablet 0 PO DAILY Valacyclovir (Valacyclovir Hcl) 1,000 Mg Tablet 1 Tab PO DAILY Allergies Allergies: Coded Allergies: No Known Drug Allergies (Unverified , 07/31/16) ROS Review of System CONSTITUTIONAL: No fever. No chills. No dizziness. No weakness. CARDIOVASCULAR: No chest pain. No palpitations. No lower extremity edema. RESPIRATORY: No shortness of breath, cough, pain with respiration. No hemoptysis. No dyspnea. GASTROINTESTINAL: Normal appetite. No nausea, vomiting, diarrhea. GENITOURINARY: No frequency, urgency, nocturia. No hematuria or dysuria. MUSCULOSKELETAL: No arthralgias or myalgias. INTEGUMENTARY: Refer to HPI NEUROLOGIC: No numbness or tingling of the extremities. No weakness. PSYCHIATRIC: No confusion. ENDOCRINE: No fatigue. No weakness. HEMATOLOGICAL: No bleeding. No petechiae. No bruising. ALLERGIES: No asthma. No urticaria Physical Exam Physical Exam General: Pleasant without apparent distress, AOx3 Dermatology: -Upon dressing removal, there is a full thickness lesion [4x5cm] at the lateral hallux IPJ. Probe to bone and concerning for necrotic osseous degradation. the wound base is fibrotic with mild undermining at 6 o'clock without any fluctuance or active drainage -the periwound erythema extends >2cm dorsally and laterally to the level of 1-3 met necks Vascular: -DP/PT palpable -Foot is warm to touch with CFT less than 3 seconds x 5 Neurology: -Light touch sensation diminished to the level of midfoot MSK: -[+] minimal TTP at lateral hallux IPJ - passive hallux IPJ and MTPJ ROM was limited but without crepitus -Able to move digits -Muscle strength 5 out of 5 across ankle joint -Calf is soft and nontender -[-] TTP at plantar mid-arch Vitals VITALS Vital Signs Date Time Temp Pulse Resp B/P (MAP) Pulse Ox O2 Delivery O2 Flow Rate FiO2 03/30/22 09:32 63 162/77 03/30/22 08:00 Room Air 03/30/22 07:00 98.0 19 99 98.0 Labs Labs Laboratory Tests Test 03/28/22 17:25 03/28/22 18:55 03/28/22 21:15 03/29/22 07:49 White Blood Count 9.7 x10^3/uL (4.0-11.0) Red Blood Count 4.68 x10^6/uL (4.30-5.70) Hemoglobin 15.0 g/dL (13.0-17.5) Hematocrit 42.7 % (39.0-53.0) Mean Corpuscular Volume 91 fL (79-100) Mean Corpuscular Hemoglobin 32 pg (25-35) Mean Corpuscular Hemoglobin Concent 35 g/dL (31-37) Red Cell Distribution Width 13.4 % (11.5-14.5) Platelet Count 162 x10^3/uL (140-400) Neutrophils (%) (Auto) 70 % (31-73) Lymphocytes (%) (Auto) 20 % (24-48) Monocytes (%) (Auto) 7 % (0-9) Eosinophils (%) (Auto) 2 % (0-3) Basophils (%) (Auto) 1 % (0-3) Neutrophils # (Auto) 6.8 x10^3/uL (1.8-7.7) Lymphocytes # (Auto) 2.0 x10^3/uL (1.0-4.8) Monocytes # (Auto) 0.7 x10^3/uL (0.0-1.1) Eosinophils # (Auto) 0.2 x10^3/uL (0.0-0.7) Basophils # (Auto) 0.1 x10^3/uL (0.0-0.2) Erythrocyte Sedimentation Rate 34 (0-15) Sodium Level 139 mmol/L (136-145) Potassium Level 3.7 mmol/L (3.5-5.1) Chloride Level 104 mmol/L (98-107) Carbon Dioxide Level 25 mmol/L (21-32) Anion Gap 10 (6-14) Blood Urea Nitrogen 20 mg/dL (8-26) Creatinine 1.1 mg/dL (0.7-1.3) Estimated GFR (Cockcroft-Gault) 68.5 BUN/Creatinine Ratio 18 (6-20) Glucose Level 136 mg/dL (70-99) Lactic Acid Level 0.8 mmol/L (0.4-2.0) Calcium Level 9.9 mg/dL (8.5-10.1) Total Bilirubin 0.5 mg/dL (0.2-1.0) Aspartate Amino Transf (AST/SGOT) 11 U/L (15-37) Alanine Aminotransferase (ALT/SGPT) 19 U/L (16-63) Alkaline Phosphatase 82 U/L (46-116) Troponin I High Sensitivity 23 ng/L (4-75) C-Reactive Protein, Quantitative 78.8 mg/L (0-3.3) Total Protein 8.2 g/dL (6.4-8.2) Albumin 3.7 g/dL (3.4-5.0) Albumin/Globulin Ratio 0.8 (1.0-1.7) Procalcitonin < 0.10 ng/mL (0.00-0.10) Urine Collection Type Unknown Urine Color (Auto) Light yellow Urine Turbidity Clear Urine pH (Auto) 6.0 (<5.0-8.0) Urine Specific Victor 1.015 (1.000-1.030) Urine Protein (Auto) 50 mg/dL (Negative) Urine Glucose (Auto)(UA) Negative mg/dL (Negative) Urine Ketones (Auto) 10 mg/dL (Negative) Urine Blood (Auto) Negative (Negative) Urine Nitrite Negative (Negative) Urine Bilirubin (Auto) Negative (Negative) Urine Urobilinogen (Auto) Normal mg/dL (Normal) Urine Leukocyte Esterase (Auto) Negative (Negative) Urine RBC 0 /HPF (0-2) Urine WBC 0 /HPF (0-4) Urine Bacteria 0 /HPF (0-FEW) Urine Mucus Slight /LPF Glucose (Fingerstick) 185 mg/dL (70-99) 158 mg/dL (70-99) Test 03/29/22 11:30 03/29/22 11:58 03/29/22 16:08 03/29/22 22:23 Hemoglobin A1c 7.5 % (4.8-5.6) Glucose (Fingerstick) 205 mg/dL (70-99) 147 mg/dL (70-99) 236 mg/dL (70-99) Test 03/30/22 07:30 03/30/22 07:39 Sodium Level 141 mmol/L (136-145) Potassium Level 3.9 mmol/L (3.5-5.1) Chloride Level 106 mmol/L (98-107) Carbon Dioxide Level 25 mmol/L (21-32) Anion Gap 10 (6-14) Blood Urea Nitrogen 14 mg/dL (8-26) Creatinine 1.0 mg/dL (0.7-1.3) Estimated GFR (Cockcroft-Gault) 76.5 Glucose Level 159 mg/dL (70-99) Calcium Level 9.1 mg/dL (8.5-10.1) Vancomycin Level Trough 15.0 mcg/mL (10.0-20.0) Vancomycin Last Dose Date 03/29/22 Vancomycin Last Dose Time 1999 Glucose (Fingerstick) 159 mg/dL (70-99) Laboratory Tests Test 03/29/22 11:30 03/29/22 11:58 03/29/22 16:08 03/29/22 22:23 Hemoglobin A1c 7.5 % (4.8-5.6) Glucose (Fingerstick) 205 mg/dL (70-99) 147 mg/dL (70-99) 236 mg/dL (70-99) Test 03/30/22 07:30 03/30/22 07:39 Sodium Level 141 mmol/L (136-145) Potassium Level 3.9 mmol/L (3.5-5.1) Chloride Level 106 mmol/L (98-107) Carbon Dioxide Level 25 mmol/L (21-32) Anion Gap 10 (6-14) Blood Urea Nitrogen 14 mg/dL (8-26) Creatinine 1.0 mg/dL (0.7-1.3) Estimated GFR (Cockcroft-Gault) 76.5 Glucose Level 159 mg/dL (70-99) Calcium Level 9.1 mg/dL (8.5-10.1) Vancomycin Level Trough 15.0 mcg/mL (10.0-20.0) Vancomycin Last Dose Date 03/29/22 Vancomycin Last Dose Time 1999 Glucose (Fingerstick) 159 mg/dL (70-99) Assessment/Plan Assessment/Plan -I explained to patient that x-ray shows osteolytic changes to the lateral hallux corresponding to the clinical full-thickness lesion. Given the amount of soft tissue damage and underlying bone infection, I am not convinced that the suppressive antibiotic therapy and wound care are adequate. After discussing the surgical intervention including staged partial hallux amputation and delayed wound closure which offers definitive source control and early weightbearing and return to activity, patient elected for surgical intervention. -However I did discuss with patient that there is a risk of skin envelope necrosis and more proximal amputation given the amount of erythema and early early ischemic changes at the lateral base of the hallux. Patient verbalized understanding. -Daily surveillance lab: CBC, BMP -Antibiotics: Currently on ceftriaxone and vancomycin, please de-escalate based on culture/pathology report - Wound cx [03/30]: Pending - BCX [03/29]: No growth to date -Weightbearing restriction: Partial heel weightbearing as tolerated -Physical therapy: Eval and treat -Nurse communication: -Twice daily dressing change with Betadine soaked gauze, tape with minimal compression to the left hallux Dispo: N.p.o. after midnight on Friday in preparation for surgery on Friday. Pending OR availability. After the first stage of surgery, patient will likely return to the OR in a few days depending on his skin survivorship for delayed wound closure versus proximal amputation. MARGARITO ROBERTSON DPM March 30, 2022 10:23
[2022-03-30 11:00] VITALS: BP 174/74
[2022-03-30] MEDS: cefTRIAXone IV Push 2 GM VIAL. IVP SCH (12:33)
[2022-03-30] MEDS: VANCOMYCIN PER PHARMACY MC PRN (13:40)
--- NOTE | 2022-03-30 13:42 | NUR ---
Pharmacy Vancomycin Dosing Note S:Consulted to monitor and dose vancomycin started 03/28/22. O:BHARGAV PRADHAN Jovanna is a 61 year old M with Cellulitis . Height: 6 feet, 0 inches Weight: 83.9 kg [place] Body Weight: 77.60 Adjusted Body Weight: 80.12 Dosing Weight: Actual Other Antibiotics: ZOSYN LABS: Last BUN: 14 Last Creatinine: 1.0 Creatinine Clearance: 87 mL/min Last WBC: 9.7 Last Procalcitonin: 0.1 Tmax (past 24 hours): 98.2 Microbiology: NGTD I/O: 1380/1000 Drug Levels: Last Trough level: 15.0 on 03/30/22 at 0720 Last dose given 03/30/22 at 0931 Vancomycin Dosing: Loading Dose: 2000 mg x1 Dosing Weight: Actual Target Trough: 10-20 Trough 15.0. Continue same dose. A: Based on trough level: P: 1. Continue Vancomycin 1250 mg IV q12h. 2. Follow up Trough level as needed. 3. Pharmacy will continue to monitor, follow and adjust therapy as needed. Danish Rodrigez [facility] [place], 03/30/22 [id number]
--- NOTE | 2022-03-30 14:10 | PDOC ---
[employer] PROGRESS NOTE Date of Service DOS: DATE: 03/30/22 TIME: 14:03 Chief Complaint Chief Complaint Cellulitis left first toe Possible osteomyelitis left first toe Uncontrolled HTN DM2 Anxiety History of Present Illness History of Present Illness 03/30: Patient seen and evaluated. Pain in his left toe is tolerable. He has been seen by Dr. Koroma and they discussed partial amputation of his left first toe on Friday, patient is agreeable. Aerobic and anaerobic cultures collected from left toe drainage yesterday with no growth to date. We will continue to follow cultures. Vitals/I&O Vitals/I&O: Vital Signs Date Time Temp Pulse Resp B/P (MAP) Pulse Ox O2 Delivery O2 Flow Rate FiO2 03/30/22 11:00 97.8 76 19 174/74 (107) 99 Room Air 97.8 I & O 03/29/22 03/29/22 03/30/22 15:00 23:00 07:00 Intake Total 600 ml 540 ml 240 ml Output Total 600 ml 400 ml Balance 0 ml 140 ml 240 ml Physical Exam General: Alert, Oriented X3, Cooperative, No acute distress Heart: Regular rate Lungs: Clear Abdomen: Soft, No hepatosplenomegaly Extremities: Normal pulses Skin: Other (Edematous and erythematous left first toe) Labs Labs: Laboratory Tests Test 03/29/22 16:08 03/29/22 22:23 03/30/22 07:30 03/30/22 07:39 Glucose (Fingerstick) 147 mg/dL (70-99) 236 mg/dL (70-99) 159 mg/dL (70-99) Sodium Level 141 mmol/L (136-145) Potassium Level 3.9 mmol/L (3.5-5.1) Chloride Level 106 mmol/L (98-107) Carbon Dioxide Level 25 mmol/L (21-32) Anion Gap 10 (6-14) Blood Urea Nitrogen 14 mg/dL (8-26) Creatinine 1.0 mg/dL (0.7-1.3) Estimated GFR (Cockcroft-Gault) 76.5 Glucose Level 159 mg/dL (70-99) Calcium Level 9.1 mg/dL (8.5-10.1) Vancomycin Level Trough 15.0 mcg/mL (10.0-20.0) Vancomycin Last Dose Date 5/6/22 Vancomycin Last Dose Time 2000 Test 03/30/22 11:42 03/30/22 12:41 Glucose (Fingerstick) 219 mg/dL (70-99) SARS-CoV-2 Antigen (Rapid) Negative (NEGATIVE) Assessment and Plan Assessmemt and Plan Problems Medical Problems: (1) Cellulitis of great toe of left foot Status: Acute (2) Cellulitis of left foot Status: Acute (3) Hypertension Status: Acute Comment Review of Relevant I have reviewed the following items ziyad (where applicable) has been applied. Medications: Current Medications Medications (Trade) Dose Ordered Sig/Néstor Route PRN Reason Start Time Stop Time Status Last Admin Dose Admin Vancomycin HCl (Vancomycin Trough Level) 1 each 1X ONCE MC 03/30/22 07:30 03/30/22 07:31 DC 03/30/22 07:30 Lactobacillus Rhamnosus (Culturelle) 1 cap BID PO 03/29/22 21:00 03/30/22 09:31 Justifications for Admission Other Justification RAUL GARCIA MD March 30, 2022 14:10
[2022-03-30 15:00] VITALS: BP 110/62
[2022-03-30] MEDS ORDERED: DEXTROSE 50% 25 GM / 50ML DISP.SYRIN. IV PRN (16:30)
[2022-03-30] MEDS: INSULIN LISPRO 300 UNITS/3 ML VIAL. SQ SCH (17:00)
[2022-03-30] MEDS: hydrALAZINE 20 MG/ML VIAL. IVP PRN (19:43)
[2022-03-30 19:47] VITALS: BP 189/74
[2022-03-30 23:14] VITALS: BP 149/62
[2022-03-31] MEDS: hydrALAZINE 20 MG/ML VIAL. IVP PRN (02:55)
[2022-03-31 03:34] VITALS: BP 185/68
[2022-03-31] MEDS: HEPARIN for SUB-Q USE 5,000 UNIT/ML VIAL. SQ SCH ×3 (06:00→21:52)
[2022-03-31 07:00] VITALS: BP 164/71
[2022-03-31 08:22] LABS: CALCIUM 9.2 mg/dL (8.5-10.1); CREATININE 0.9 mg/dL (0.7-1.3); GFR 86.4; POTASSIUM 4.2 mmol/L (3.5-5.1)
[2022-03-31] MEDS: LACTOBACILLUS RHAMNOSUS GG 1 CAPSULE. PO SCH ×2 (08:57→20:04)
[2022-03-31] MEDS: INSULIN LISPRO 300 UNITS/3 ML VIAL. SQ SCH ×3 (09:12→17:00)
[2022-03-31] MEDS: VANCOMYCIN 1.25 GM in IV NORMAL SALINE 250ML 250 ML IV SCH ×2 (10:12→20:03)
--- NOTE | 2022-03-31 10:51 | PDOC ---
[employer] PROGRESS NOTE Date of Service DOS: DATE: 03/31/22 TIME: 10:49 Chief Complaint Chief Complaint Cellulitis left first toe Possible osteomyelitis left first toe Uncontrolled HTN DM2 Anxiety History of Present Illness History of Present Illness 03/31: Patient denies significant pain in his left first toe. He is scheduled for partial amputation tomorrow with podiatry. CBG yesterday 219; he was initially on sliding scale insulin, and blood glucose 164 this morning. Continue IV antibiotics. Cultures pending. 03/30: Patient seen and evaluated. Pain in his left toe is tolerable. He has been seen by Dr. Koroma and they discussed partial amputation of his left first toe on Friday, patient is agreeable. Aerobic and anaerobic cultures collected from left toe drainage yesterday with no growth to date. We will continue to follow cultures. Vitals/I&O Vitals/I&O: Vital Signs Date Time Temp Pulse Resp B/P (MAP) Pulse Ox O2 Delivery O2 Flow Rate FiO2 03/31/22 08:59 71 153/67 03/31/22 07:00 98.1 20 98 Room Air 98.1 I & O 03/30/22 03/30/22 03/31/22 15:00 23:00 07:00 Intake Total 200 ml 200 ml 600 ml Output Total 300 ml Balance 200 ml 200 ml 300 ml Physical Exam General: Alert, Oriented X3, Cooperative, No acute distress Heart: Regular rate Lungs: Clear Abdomen: Soft, No hepatosplenomegaly Extremities: Normal pulses Skin: Other (Edematous and erythematous left first toe) Labs Labs: Laboratory Tests Test 03/30/22 11:42 03/30/22 12:41 03/30/22 15:52 03/30/22 20:21 Glucose (Fingerstick) 219 mg/dL (70-99) 188 mg/dL (70-99) 196 mg/dL (70-99) SARS-CoV-2 Antigen (Rapid) Negative (NEGATIVE) Test 03/31/22 06:50 03/31/22 07:43 Sodium Level 140 mmol/L (136-145) Potassium Level 4.2 mmol/L (3.5-5.1) Chloride Level 107 mmol/L (98-107) Carbon Dioxide Level 23 mmol/L (21-32) Anion Gap 10 (6-14) Blood Urea Nitrogen 17 mg/dL (8-26) Creatinine 0.9 mg/dL (0.7-1.3) Estimated GFR (Cockcroft-Gault) 86.4 Glucose Level 153 mg/dL (70-99) Calcium Level 9.2 mg/dL (8.5-10.1) Glucose (Fingerstick) 164 mg/dL (70-99) Assessment and Plan Assessmemt and Plan Problems Medical Problems: (1) Cellulitis of great toe of left foot Status: Acute (2) Cellulitis of left foot Status: Acute (3) Hypertension Status: Acute Comment Review of Relevant I have reviewed the following items ziyad (where applicable) has been applied. Medications: Current Medications Medications (Trade) Dose Ordered Sig/Néstor Route PRN Reason Start Time Stop Time Status Last Admin Dose Admin Insulin Human Lispro (HumaLOG) 0-7 UNITS TIDWMEALS SQ 03/30/22 17:00 03/31/22 09:12 Justifications for Admission Other Justification RAUL GARCIA MD March 31, 2022 10:51
[2022-03-31 11:00] VITALS: BP 153/76
[2022-03-31] MEDS: cefTRIAXone IV Push 2 GM VIAL. IVP SCH (11:32)
[2022-03-31] MEDS: VANCOMYCIN PER PHARMACY MC PRN (12:54)
[2022-03-31 15:00] VITALS: BP 168/75
[2022-03-31 19:50] VITALS: BP 148/100
[2022-03-31 23:51] VITALS: BP 169/68
[2022-04-01] VITALS (11 sets, daily range): BP systolic 145–180; BP diastolic 58–74
[2022-04-01 04:51] LABS: CALCIUM 9.1 mg/dL (8.5-10.1); CREATININE 1.1 mg/dL (0.7-1.3); GFR 68.5
[2022-04-01] MEDS: HEPARIN for SUB-Q USE 5,000 UNIT/ML VIAL. SQ SCH ×3 (06:00→21:05)
[2022-04-01] MEDS: INSULIN LISPRO 300 UNITS/3 ML VIAL. SQ SCH ×3 (07:57→17:00)
[2022-04-01] MEDS: LACTOBACILLUS RHAMNOSUS GG 1 CAPSULE. PO SCH ×2 (08:03→20:57)
[2022-04-01] MEDS: VANCOMYCIN 1.25 GM in IV NORMAL SALINE 250ML 250 ML IV SCH ×2 (08:04→20:58)
--- NOTE | 2022-04-01 09:02 | PDOC ---
[employer] PROGRESS NOTE Date of Service DOS: DATE: 04/01/22 TIME: 09:02 Chief Complaint Chief Complaint Cellulitis left first toe Left great toe diabetic ulcers x2 Possible osteomyelitis left first toe Uncontrolled HTN DM2 Anxiety FEN - NPO PPX - lovenox FULL CODE Dispo - inpatient History of Present Illness History of Present Illness 03/30: Patient seen and evaluated. Pain in his left toe is tolerable. He has been seen by Dr. Koroma and they discussed partial amputation of his left first toe on Friday, patient is agreeable. Aerobic and anaerobic cultures collected from left toe drainage yesterday with no growth to date. 03/31: Patient denies significant pain in his left first toe. He is scheduled for partial amputation tomorrow with podiatry. CBG yesterday 219; he was initially on sliding scale insulin, and blood glucose 164 this morning. Continue IV antibiotics. Cultures pending. 04/01: Left great toe still with some pain has not tried to bear weight. N.p.o. for partial potation today. Glucose less than 180. Initial gram stain negative culture results pending. Vitals/I&O Vitals/I&O: Vital Signs Date Time Temp Pulse Resp B/P (MAP) Pulse Ox O2 Delivery O2 Flow Rate FiO2 04/01/22 08:03 56 163/58 04/01/22 07:00 98.0 16 95 Room Air 98.0 I & O 03/31/22 03/31/22 04/01/22 15:00 23:00 07:00 Intake Total 480 ml 240 ml 500 ml Output Total 300 ml Balance 180 ml 240 ml 500 ml Physical Exam General: Alert, Oriented X3, Cooperative, No acute distress Heart: Regular rate Lungs: Clear Abdomen: Soft, No hepatosplenomegaly Extremities: Normal pulses Skin: Other (Edematous and erythematous left first toe) Labs Labs: Laboratory Tests Test 03/31/22 11:29 03/31/22 17:04 03/31/22 19:58 04/01/22 04:15 Glucose (Fingerstick) 167 mg/dL (70-99) 118 mg/dL (70-99) 210 mg/dL (70-99) Sodium Level 142 mmol/L (136-145) Potassium Level 4.0 mmol/L (3.5-5.1) Chloride Level 107 mmol/L (98-107) Carbon Dioxide Level 26 mmol/L (21-32) Anion Gap 9 (6-14) Blood Urea Nitrogen 15 mg/dL (8-26) Creatinine 1.1 mg/dL (0.7-1.3) Estimated GFR (Cockcroft-Gault) 68.5 Glucose Level 133 mg/dL (70-99) Calcium Level 9.1 mg/dL (8.5-10.1) Test 04/01/22 07:55 Glucose (Fingerstick) 169 mg/dL (70-99) Assessment and Plan Assessmemt and Plan Problems Medical Problems: (1) Cellulitis of great toe of left foot Status: Acute (2) Cellulitis of left foot Status: Acute (3) Hypertension Status: Acute Comment Review of Relevant I have reviewed the following items ziyad (where applicable) has been applied. Justifications for Admission Other Justification SANDY JOE MD April 01, 2022 09:02
[2022-04-01] MEDS: cefTRIAXone IV Push 2 GM VIAL. IVP SCH (11:25)
[2022-04-01] MEDS: VANCOMYCIN PER PHARMACY MC PRN (11:39)
--- NOTE | 2022-04-01 13:05 | PDOC ---
PROGRESS NOTES Date of Service DATE: 04/01/22 TIME: 13:01 Subjective Subjective Patient was resting comfortably in bed. Patient denied pain to the left big toe or foot. Patient denies any adverse reaction or any constitutional symptoms while on IV antibiotics. They have been doing dressing change with Betadine wet-to-dry twice daily. Patient has been n.p.o. since last night in preparation for surgery today. Objective Objective Vital Signs Date Time Temp Pulse Resp B/P (MAP) Pulse Ox O2 Delivery O2 Flow Rate FiO2 04/01/22 11:00 98.2 57 16 147/61 (89) 98 Room Air 98.2 Intake and Output 04/01/22 07:00 Intake Total 1220 ml Output Total 300 ml Balance 920 ml Intake Oral 1220 ml Output Urine Total 300 ml # Voids 3 Physical Exam Physical Exam General: Pleasant without apparent distress, AOx3 Dermatology: -Upon dressing removal, there is a full thickness lesion [4x5cm] at the lateral hallux IPJ. Probe to bone and concerning for necrotic osseous degradation. the wound base is fibrotic with mild undermining at 6 o'clock without any fluctuance or active drainage -the periwound erythema extends >2cm dorsally and laterally to the level of 1-3 met necks Vascular: -DP/PT palpable -Foot is warm to touch with CFT less than 3 seconds x 5 Neurology: -Light touch sensation diminished to the level of midfoot MSK: -[+] minimal TTP at lateral hallux IPJ - passive hallux IPJ and MTPJ ROM was limited but without crepitus -Able to move digits -Muscle strength 5 out of 5 across ankle joint -Calf is soft and nontender -[-] TTP at plantar mid-arch Assessment Assessment Problems Medical Problems: (1) Cellulitis of great toe of left foot Status: Acute (2) Cellulitis of left foot Status: Acute (3) Hypertension Status: Acute Plan Plan of Care -I explained to patient that x-ray shows osteolytic changes to the lateral hallux corresponding to the clinical full-thickness lesion. Given the amount of soft tissue damage and underlying bone infection, I am not convinced that the suppressive antibiotic therapy and wound care are adequate. After discussing the surgical intervention including staged partial hallux amputation and delayed wound closure which offers definitive source control and early weightbearing and return to activity, patient elected for surgical intervention. -However I did discuss with patient that there is a risk of skin envelope necrosis and more proximal amputation given the amount of erythema and early early ischemic changes at the lateral base of the hallux. Patient verbalized understanding. -Daily surveillance lab: CBC, BMP -Antibiotics: Currently on ceftriaxone and vancomycin, please de-escalate based on culture/pathology report - Wound cx [03/30]: S. Lugdunensis, Corynebacteria, Finegoldia - BCX [03/29]: No growth to date -Weightbearing restriction: Partial heel weightbearing as tolerated -Physical therapy: Eval and treat -Nurse communication: -Twice daily dressing change with Betadine soaked gauze, tape with minimal compression to the left hallux Dispo: Left partial hallux amputation. After the first stage of surgery, patient will likely return to the OR in a few days depending on his skin survivorship for delayed wound closure versus proximal amputation. Patient is a pack a day smoker for decades. Depends on intraoperative arterial inflow, patient may require some arterial intervention. Comment Review of Relevant I have reviewed the following items ziyad (where applicable) has been applied. Labs Laboratory Tests Test 03/30/22 15:52 03/30/22 20:21 03/31/22 06:50 03/31/22 07:43 Glucose (Fingerstick) 188 mg/dL (70-99) 196 mg/dL (70-99) 164 mg/dL (70-99) Sodium Level 140 mmol/L (136-145) Potassium Level 4.2 mmol/L (3.5-5.1) Chloride Level 107 mmol/L (98-107) Carbon Dioxide Level 23 mmol/L (21-32) Anion Gap 10 (6-14) Blood Urea Nitrogen 17 mg/dL (8-26) Creatinine 0.9 mg/dL (0.7-1.3) Estimated GFR (Cockcroft-Gault) 86.4 Glucose Level 153 mg/dL (70-99) Calcium Level 9.2 mg/dL (8.5-10.1) Test 03/31/22 11:29 03/31/22 17:04 03/31/22 19:58 04/01/22 04:15 Glucose (Fingerstick) 167 mg/dL (70-99) 118 mg/dL (70-99) 210 mg/dL (70-99) Sodium Level 142 mmol/L (136-145) Potassium Level 4.0 mmol/L (3.5-5.1) Chloride Level 107 mmol/L (98-107) Carbon Dioxide Level 26 mmol/L (21-32) Anion Gap 9 (6-14) Blood Urea Nitrogen 15 mg/dL (8-26) Creatinine 1.1 mg/dL (0.7-1.3) Estimated GFR (Cockcroft-Gault) 68.5 Glucose Level 133 mg/dL (70-99) Calcium Level 9.1 mg/dL (8.5-10.1) Test 04/01/22 07:55 04/01/22 11:28 Glucose (Fingerstick) 169 mg/dL (70-99) 143 mg/dL (70-99) Laboratory Tests Test 03/31/22 17:04 03/31/22 19:58 04/01/22 04:15 04/01/22 07:55 Glucose (Fingerstick) 118 mg/dL (70-99) 210 mg/dL (70-99) 169 mg/dL (70-99) Sodium Level 142 mmol/L (136-145) Potassium Level 4.0 mmol/L (3.5-5.1) Chloride Level 107 mmol/L (98-107) Carbon Dioxide Level 26 mmol/L (21-32) Anion Gap 9 (6-14) Blood Urea Nitrogen 15 mg/dL (8-26) Creatinine 1.1 mg/dL (0.7-1.3) Estimated GFR (Cockcroft-Gault) 68.5 Glucose Level 133 mg/dL (70-99) Calcium Level 9.1 mg/dL (8.5-10.1) Test 04/01/22 11:28 Glucose (Fingerstick) 143 mg/dL (70-99) Microbiology 03/30/22 Gram Stain - Final, Resulted 03/30/22 Aerobic and Anaerobic Culture - Preliminary, Resulted Staphylococcus Lugdunensis Staphylococcus Lugdunensis#2 03/29/22 Blood Culture - Preliminary, Resulted NO GROWTH AFTER 3 DAYS Medications Current Medications Hydralazine HCl (Apresoline Inj) 10 mg 1X ONCE IVP Last administered on 03/28/22at 17:39; Start 03/28/22 at 17:30; Stop 03/28/22 at 17:31; Status DC Sodium Chloride 1,000 ml @ 999 mls/hr 1X ONCE IV Last administered on 03/28/22at 17:39; Start 03/28/22 at 17:30; Stop 03/28/22 at 18:30; Status DC Vancomycin HCl (Vanco Per Pharmacy) 1 each PRN DAILY PRN MC SEE COMMENTS Last administered on 04/01/22at 11:39; Start 03/28/22 at 18:30 Piperacillin Sod/ Tazobactam Sod (Zosyn Per Pharmacy) 1 each PRN DAILY PRN MC SEE COMMENTS; Start 03/28/22 at 18:30; Stop 03/29/22 at 11:02; Status DC Piperacillin Sod/ Tazobactam Sod 3.375 gm/Sodium Chloride 50 ml @ 100 mls/hr 1X ONCE IV Last administered on 03/28/22at 19:33; Start 03/28/22 at 19:00; Stop 03/28/22 at 19:29; Status DC Vancomycin HCl 2 gm/Sodium Chloride 500 ml @ 250 mls/hr 1X ONCE IV Last administered on 03/28/22at 20:00; Start 03/28/22 at 19:00; Stop 03/28/22 at 20:59; Status DC Clonidine HCl (Catapres) 0.1 mg 1X ONCE PO Last administered on 03/28/22at 18:51; Start 03/28/22 at 18:45; Stop 03/28/22 at 18:58; Status DC Piperacillin Sod/ Tazobactam Sod 3.375 gm/Sodium Chloride 50 ml @ 100 mls/hr Q6HRS IV Last administered on 03/29/22at 05:41; Start 03/29/22 at 00:00; Stop 03/29/22 at 11:02; Status DC Vancomycin HCl 1.25 gm/Sodium Chloride 250 ml @ 167 mls/hr Q12H IV Last administered on 04/01/22at 08:04; Start 03/29/22 at 08:00 Vancomycin HCl (Vancomycin Trough Level) 1 each 1X ONCE MC Last administered on 03/30/22at 07:30; Start 03/30/22 at 07:30; Stop 03/30/22 at 07:31; Status DC Acetaminophen (Tylenol) 650 mg PRN Q6HRS PRN PO MILD PAIN / TEMP > 100.3'F Last administered on 03/29/22at 08:22; Start 03/28/22 at 21:45; Stop 03/29/22 at 11:43; Status DC Ceftriaxone Sodium (Rocephin) 2 gm Q24H IVP Last administered on 04/01/22at 11:25; Start 03/29/22 at 12:00 Lisinopril (Prinivil) 20 mg DAILY PO ; Start 03/29/22 at 12:00; Stop 03/29/22 at 11:20; Status DC Hydralazine HCl (Apresoline Inj) 10 mg PRN Q4HRS PRN IVP ELEVATED BP, SEE COMMENTS Last administered on 03/31/22at 02:55; Start 03/29/22 at 11:30 Amlodipine Besylate (Norvasc) 10 mg DAILY PO Last administered on 04/01/22at 08:03; Start 03/29/22 at 12:00 Ondansetron HCl (Zofran) 4 mg PRN Q6HRS PRN IVP NAUSEA/VOMITING; Start 03/29/22 at 11:30 Al Hydroxide/Mg Hydroxide (Mylanta Plus Xs) 30 ml PRN Q3HRS PRN PO HEARTBURN / GAS; Start 03/29/22 at 11:30 Calcium Carbonate/ Glycine (Tums) 500 mg PRN Q3HRS PRN PO UPSET STOMACH; Start 03/29/22 at 11:30 Zolpidem Tartrate (Ambien) 5 mg PRN QHS PRN PO INSOMNIA, MAY REPEAT IN 1HR; Start 03/29/22 at 11:30 Acetaminophen/ Hydrocodone Bitart (Lortab 5/325) 1 tab PRN Q4HRS PRN PO MILD PAIN 1-3; Start 03/29/22 at 11:30 Acetaminophen/ Hydrocodone Bitart (Lortab 5/325) 2 tab PRN Q4HRS PRN PO MODERATE PAIN, SEVERE PAIN; Start 03/29/22 at 11:30 Acetaminophen (Tylenol) 650 mg PRN Q6HRS PRN PO Headaches, Temp > 101.5F; Start 03/29/22 at 11:30 Heparin Sodium (Porcine) (Heparin Sodium) 5,000 unit Q8HRS SQ Last administered on 03/31/22at 21:52; Start 03/29/22 at 14:00 Labetalol HCl (Normodyne Iv Push) 20 mg PRN Q2HR PRN IVP HYPERTENSION; Start 03/29/22 at 11:30 Lactobacillus Rhamnosus (Culturelle) 1 cap BID PO Last administered on 04/01/22at 08:03; Start 03/29/22 at 21:00 Clonidine HCl (Catapres) 0.1 mg STK-MED ONCE .ROUTE ; Start 03/28/22 at 18:49; Stop 03/30/22 at 14:47; Status DC Insulin Human Lispro (HumaLOG) 0-7 UNITS TIDWMEALS SQ Last administered on 03/31/22at 11:44; Start 03/30/22 at 17:00 Dextrose (Dextrose 50%-Water Syringe) 12.5 gm PRN Q15MIN PRN IV SEE COMMENTS; Start 03/30/22 at 16:30 Active Scripts Active Cyclobenzaprine Hcl 5 Mg Tablet 1 Tab PO TID Ibuprofen 600 Mg Tablet 600 Mg PO PRN Q6HRS PRN Bactrim Ds Tablet (Sulfamethoxazole/Trimethoprim) 1 Each Tablet 1 Tab PO BID 10 Days Keflex (Cephalexin) 500 Mg Capsule 2 Cap PO Q12HR Reported Clonazepam (Clonazepam) 0.5 Mg Tablet 1 Tab PO BID Toujeo Solostar (Insulin Glargine,Hum.rec.anlog) 300 Unit/1 Ml Insuln.pen 20 Unit SQ DAILYWSUP Diovan (Valsartan) 80 Mg Tablet 0 PO DAILY Valacyclovir (Valacyclovir Hcl) 1,000 Mg Tablet 1 Tab PO DAILY Vitals/I & O Vital Sign - Last 24 Hours 03/31/22 03/31/22 03/31/22 03/31/22 15:00 19:50 20:00 23:51 Temp 97.7 98.8 98.3 97.7 98.8 98.3 Pulse 56 78 53 Resp 20 20 20 B/P (MAP) 168/75 (106) 148/100 (116) 169/68 (101) Pulse Ox 98 98 99 O2 Delivery Room Air Room Air Room Air Room Air 04/01/22 04/01/22 04/01/22 04/01/22 03:38 07:00 08:00 08:03 Temp 98.3 98.0 98.3 98.0 Pulse 54 55 56 Resp 20 16 B/P (MAP) 154/71 (98) 163/58 (93) 163/58 Pulse Ox 98 95 O2 Delivery Room Air Room Air Room Air 04/01/22 11:00 Temp 98.2 98.2 Pulse 57 Resp 16 B/P (MAP) 147/61 (89) Pulse Ox 98 O2 Delivery Room Air Intake and Output 03/31/22 03/31/22 04/01/22 15:00 23:00 07:00 Intake Total 480 ml 240 ml 500 ml Output Total 300 ml Balance 180 ml 240 ml 500 ml Justifications for Admission Other Justification MARGARITO ROBERTSON DPM April 01, 2022 13:05
--- NOTE | 2022-04-01 14:38 | NUR ---
SS following up with discharge planning. SS reviewed pt chart and discussed with pt RN. Pt is from home and is currently on room air. Pt on IV Rocephin and IV Vancomycin. COVID19 negative. Self pay. Med Assist following. Toe amputation today. SS will continue to follow for discharge planning.
[2022-04-01] MEDS ORDERED: IV RINGERS,LACTATED 1000ML 1,000 ML IV SCH (15:30)
[2022-04-01] MEDS ORDERED: INSULIN LISPRO 100 UNIT/ML 3ML VIAL for OP,RR ONLY. SQ PRN (15:30)
[2022-04-01] MEDS ORDERED: fentaNYL PF VIAL 100 MCG/2 ML VIAL IVP PRN ×2 (15:30)
[2022-04-01] MEDS ORDERED: HYDROmorphone 2 MG/ML INJ. IVP PRN (15:30)
[2022-04-01] MEDS ORDERED: MORPHINE SULFATE 2 MG/ML INJ. IVP PRN (15:30)
[2022-04-01] MEDS ORDERED: PROCHLORPERAZINE 10 MG/2 ML VIAL. IVP PRN (15:30)
[2022-04-01] MEDS ORDERED: KETOROLAC 30 MG/ML VIAL. ONE (16:06)
[2022-04-01] MEDS ORDERED: BUPIVACAINE MPF 0.25% 30 ML VIAL. ONE (16:10)
[2022-04-01] MEDS ORDERED: DEXAMETHASONE SOD PHOS 4 MG/ML VIAL ONE (16:25)
[2022-04-01] MEDS ORDERED: PROPOFOL 10 MG/ML (20ML) VIAL. IV ONE (16:25)
[2022-04-01] MEDS ORDERED: LIDOCAINE 2% PF 5 ML VIAL. ONE (16:25)
[2022-04-01] MEDS ORDERED: ONDANSETRON PF 4 MG/2 ML VIAL. ONE (16:26)
[2022-04-01] MEDS ORDERED: SEVOFLURANE 61 TO 120 MINUTES. IH ONE (16:26)
[2022-04-01] MEDS ORDERED: SEVOFLURANE 31 TO 60 MINUTES. IH ONE (16:39)
[2022-04-01] MEDS ORDERED: oxyCODONE/APAP 5/325 1 TAB TABLET PO ONE (16:45)
[2022-04-01] MEDS ORDERED: ACETAMINOPHEN 325 MG TABLET. PO ONE (16:45)
--- NOTE | 2022-04-01 16:49 | PDOC4 ---
OPERATIVE NOTE Date: Date: April 01, 2022 Pre-Op Diagnosis: Left hallux osteomyelitis, cellulitis Type 2 diabetes, peripheral neuropathy and PAD Post-Op Diagnosis: Same as above Procedure Performed: Left hallux partial amputation Surgeon: Margarito Robertson DPM Anesthesia Type: General Blood Loss: 5 cc Specimans Obtained: Left hallux pre and after washout culture Left distal hallux permanent specimen with proximal margin inked for osteomyelitis rule out Findings: Communicating purulent discharge at the lateral and plantar hallux IPJ. Full- thickness probe to bone without any proximal tracking along the tendons or necrotic changes to the first interdigital space. After partial hallux amputation, proximal margin of the hallux remained firm and healthy. Complications: None Operative Note: Patient was brought into the operating room and placed on the operating table in a supine position. A timeout was performed to confirm patient's identity, location of surgery and procedure. After induction of general anesthesia, a pneumatic ankle tourniquet was placed with pressure set 250 mmHg. following alcohol skin prep, 9 cc of 0.25% Marcaine plain was infiltrated to the left distal hallux for preoperative anesthesia. The left lower extremity was then scrubbed, prepped and draped in the usual sterile manner. The tourniquet was not inflated Then the attention was directed to the left distal hallux. A full-thickness, modified fishmouth incision was carried out to the level of proximal hallux IPJ. The incision was carried deep to the level of the periosteum. The operative finding remarked communicating wounds between the plantar hallux IPJ and the lateral hallux IPJ. There was purulent discharg from both wounds. The hallux IPJ was soft to probe and appeared necrotic. However the dorsal and plantar tendons were spared without any proximal tracking. There was no tunneling or necrotic changes to the first interdigital space. Deep tissue culture was collected at this time for anaerobes, aerobes and sensitivity. Left distal hallux was resected out at the level of proximal phalangeal shaft. The gross specimen was sent for pathology with the proximal margin of the metatarsal bone inked for clear margin study. The surgical site was irrigated with copious saline solution. Afterwards, wound site inspection was negative for necrotic changes or purulent discharge. There was attenuated and pinpoint bleeding to both dorsal and plantar flap and wound bed. Then a repeat deep tissue culture was collected for anaerobes, aerobes and sensitivity. The surgical site was packed open with Betadine soaked Kerlix. The surgical sites was further dressed with 4 x 4 gauze, soft roll and Jaret bandage with minimal to no compression. Patient tolerated procedure anesthesia well with vital signs stable and neurovascular status intact. Patient was then transferred to PACU for continued recovery. Pending surgical foot x-ray 3 view in PACU. Dispo: Pending skin flap survivorship and wound bed bleeding. May consider vascular consult upon next dressing change in 24 hours. MARGARITO ROBERTSON DPM April 01, 2022 16:49
[2022-04-02 03:00] VITALS: BP 151/76
[2022-04-02 04:26] LABS: BASO % 0 % (0-3); EOS % 0 % (0-3); HEMATOCRIT 39.2 % (39.0-53.0); HEMOGLOBIN 13.8 g/dL (13.0-17.5); LYMPH # 0.8 x10^3/uL (1.0-4.8); LYMPH % 13 % (24-48); MEAN CORPUSCULAR HEMOGLOBIN 32 pg (25-35); MEAN CORPUSCULAR HGB CONC 35 g/dL (31-37); MEAN CORPUSCULAR VOLUME 90 fL (79-100); MONO # 0.3 x10^3/uL (0.0-1.1); MONO % 5 % (0-9); NEUT # 5.3 x10^3/uL (1.8-7.7); NEUT % 82 % (31-73); PLATELET COUNT 192 x10^3/uL (140-400); RED BLOOD COUNT 4.36 x10^6/uL (4.30-5.70); RED CELL DISTRIBUTION WIDTH 13.3 % (11.5-14.5); WHITE BLOOD COUNT 6.5 x10^3/uL (4.0-11.0)
[2022-04-02 04:56] LABS: CALCIUM 9.3 mg/dL (8.5-10.1); CREATININE 1.2 mg/dL (0.7-1.3); POTASSIUM 4.2 mmol/L (3.5-5.1)
[2022-04-02] MEDS: HEPARIN for SUB-Q USE 5,000 UNIT/ML VIAL. SQ SCH ×3 (06:00→21:55)
[2022-04-02 07:00] VITALS: BP 138/69
[2022-04-02] MEDS: INSULIN LISPRO 300 UNITS/3 ML VIAL. SQ SCH ×3 (08:00→16:49)
[2022-04-02] MEDS: LACTOBACILLUS RHAMNOSUS GG 1 CAPSULE. PO SCH ×2 (08:42→22:00)
[2022-04-02] MEDS: VANCOMYCIN 1.25 GM in IV NORMAL SALINE 250ML 250 ML IV SCH ×2 (08:46→22:01)
--- NOTE | 2022-04-02 08:52 | PDOC ---
[facility] PROGRESS NOTE Date of Service DOS: DATE: 04/02/22 TIME: 08:50 Chief Complaint Chief Complaint Cellulitis left first toe Left great toe diabetic ulcers x2 Possible osteomyelitis left first toe -s/p partial amputation 04/01/2022 Uncontrolled HTN DM2 Anxiety FEN -ADA PPX - lovenox FULL CODE Dispo - inpatient History of Present Illness History of Present Illness 03/30: Patient seen and evaluated. Pain in his left toe is tolerable. He has been seen by Dr. Koroma and they discussed partial amputation of his left first toe on Friday, patient is agreeable. Aerobic and anaerobic cultures collected from left toe drainage yesterday with no growth to date. 03/31: Patient denies significant pain in his left first toe. He is scheduled for partial amputation tomorrow with podiatry. CBG yesterday 219; he was initially on sliding scale insulin, and blood glucose 164 this morning. Continue IV antibiotics. Cultures pending. 04/01: Left great toe still with some pain has not tried to bear weight. N.p.o. for partial amputation today. Glucose less than 180. Initial gram stain negative culture results pending. 04/02: Status post left hallux partial imitation with good blood flow. Delayed closure wound is packed with iodinated gauze. Patient is relatively pain-free. Pending arterial Doppler of left lower extremity today. Vitals/I&O Vitals/I&O: Vital Signs Date Time Temp Pulse Resp B/P (MAP) Pulse Ox O2 Delivery O2 Flow Rate FiO2 04/02/22 07:00 97.8 50 18 138/69 (92) 99 Room Air 97.8 04/01/22 21:05 96.0 I & O 04/01/22 04/01/22 04/02/22 15:00 23:00 07:00 Intake Total 250 ml 100 ml 200 ml Balance 250 ml 100 ml 200 ml Physical Exam General: Alert, Oriented X3, Cooperative, No acute distress Heart: Regular rate Lungs: Clear Abdomen: Soft, No hepatosplenomegaly Extremities: Normal pulses Skin: Other (Edematous and erythematous left first toe) Labs Labs: Laboratory Tests Test 04/01/22 11:28 04/01/22 15:27 04/01/22 17:08 04/01/22 20:01 Glucose (Fingerstick) 143 mg/dL (70-99) 124 mg/dL (70-99) 137 mg/dL (70-99) 312 mg/dL (70-99) Test 04/02/22 04:05 04/02/22 07:13 White Blood Count 6.5 x10^3/uL (4.0-11.0) Red Blood Count 4.36 x10^6/uL (4.30-5.70) Hemoglobin 13.8 g/dL (13.0-17.5) Hematocrit 39.2 % (39.0-53.0) Mean Corpuscular Volume 90 fL (79-100) Mean Corpuscular Hemoglobin 32 pg (25-35) Mean Corpuscular Hemoglobin Concent 35 g/dL (31-37) Red Cell Distribution Width 13.3 % (11.5-14.5) Platelet Count 192 x10^3/uL (140-400) Neutrophils (%) (Auto) 82 % (31-73) Lymphocytes (%) (Auto) 13 % (24-48) Monocytes (%) (Auto) 5 % (0-9) Eosinophils (%) (Auto) 0 % (0-3) Basophils (%) (Auto) 0 % (0-3) Neutrophils # (Auto) 5.3 x10^3/uL (1.8-7.7) Lymphocytes # (Auto) 0.8 x10^3/uL (1.0-4.8) Monocytes # (Auto) 0.3 x10^3/uL (0.0-1.1) Eosinophils # (Auto) 0.0 x10^3/uL (0.0-0.7) Basophils # (Auto) 0.0 x10^3/uL (0.0-0.2) Sodium Level 139 mmol/L (136-145) Potassium Level 4.2 mmol/L (3.5-5.1) Chloride Level 106 mmol/L (98-107) Carbon Dioxide Level 25 mmol/L (21-32) Anion Gap 8 (6-14) Blood Urea Nitrogen 17 mg/dL (8-26) Creatinine 1.2 mg/dL (0.7-1.3) Estimated GFR (Cockcroft-Gault) 62.0 Glucose Level 174 mg/dL (70-99) Calcium Level 9.3 mg/dL (8.5-10.1) Glucose (Fingerstick) 143 mg/dL (70-99) Assessment and Plan Assessmemt and Plan Problems Medical Problems: (1) Cellulitis of great toe of left foot Status: Acute (2) Cellulitis of left foot Status: Acute (3) Hypertension Status: Acute Comment Review of Relevant I have reviewed the following items ziyad (where applicable) has been applied. Medications: Current Medications Medications (Trade) Dose Ordered Sig/Néstor Route PRN Reason Start Time Stop Time Status Last Admin Dose Admin Ringer's Solution 1,000 ml @ 30 mls/hr Q24H IV 04/01/22 15:30 04/02/22 03:29 DC 04/01/22 15:29 Bupivacaine HCl (Sensorcaine Mpf 0.25%) 30 ml STK-MED ONCE .ROUTE 04/01/22 16:10 04/01/22 16:10 DC 04/01/22 16:26 Acetaminophen (Tylenol) 650 mg 1X ONCE PO 04/01/22 16:45 04/01/22 16:46 DC 04/01/22 17:39 Oxycodone/ Acetaminophen (Percocet 5/325) 1 tab 1X ONCE PO 04/01/22 16:45 04/01/22 16:46 DC 04/01/22 17:39 Justifications for Admission Other Justification SANDY JOE MD April 02, 2022 08:52
[2022-04-02 10:45] VITALS: BP 144/60
[2022-04-02] MEDS: cefTRIAXone IV Push 2 GM VIAL. IVP SCH (12:23)
--- NOTE | 2022-04-02 12:23 | RAD ---
EXAM: Left foot, 3 views. HISTORY: Great toe amputation. COMPARISON: 03/28/2022 FINDINGS: 3 views of the right foot are obtained. There has been amputation of the left great toe at the mid to distal aspect of the first proximal phalanx. There is overlying bandage material due to re cent surgery. There is chronic deformity of the tuft of the second distal phalanx. There is a small p lantar spur. There is accessory navicular. IMPRESSION: Amputation of the great toe at the level of the mid to distal first proximal phalanx. Electronically signed by: Radha Crowley MD (04/02/2022 8:43 AM) [id number]
--- NOTE | 2022-04-02 12:57 | RAD ---
Left lower extremity arterial ultrasound History: : 61 years Male Reason: left great toe infection, concern for decreased pulses, peripheral arterial disease Findings: Multiple grayscale, color, and duplex spectral analysis sonographic images were acquired of the lower extremity arteries. COMPARISON: None. FINDINGS: Grayscale evaluation of the femoropopliteal segments demonstrate scattered atherosclerotic plaque. Color Doppler demonstrate patent arterial segments from the [employer] proximal SFA and profunda artery. The re is occlusion in the catheter mid the SFA with the distal the SFA reconstitution. The flow velociti es below the knee are from diminished ranging catheter from 26-51 cm/s. Waveforms: Monophasic throughout. Impression: Occlusion in the mid the left SFA. Electronically signed by: Leonardo Palomino MD (04/02/2022 12:55 PM) [id number]
[2022-04-02 15:00] VITALS: BP 168/83
[2022-04-02] MEDS: VANCOMYCIN PER PHARMACY MC PRN (15:28)
--- NOTE | 2022-04-02 15:29 | PDOC ---
PROGRESS NOTES Date of Service DATE: 04/02/22 TIME: 15:26 Subjective Subjective Patient was seen resting comfortably in bed without any significant pain to the surgical site. Patient has been keeping the dressing clean, dry and intact. Patient has been tolerating ceftriaxone and vancomycin without any adverse r eaction. He denies any constitutional symptoms. Objective Objective Vital Signs Date Time Temp Pulse Resp B/P (MAP) Pulse Ox O2 Delivery O2 Flow Rate FiO2 04/02/22 15:00 97.9 68 18 168/83 (111) 99 Room Air 97.9 04/01/22 21:05 96.0 Intake and Output 04/02/22 07:00 Intake Total 550 ml Balance 550 ml Intake Oral 300 ml IV Total 250 ml # Voids 2 Physical Exam Physical Exam General: Pleasant without apparent distress, AOx3 Dermatology: -Upon dressing removal, the wound bed appears granular without active drainage/purulence or bleeding. the bone was firm to probe. there was no proximal streaking or fluctuance -Periwound erythema has resolved Vascular: -DP/PT palpable -Foot is warm to touch with CFT less than 3 seconds x 5 Neurology: -Light touch sensation diminished to the level of midfoot MSK: -[+] minimal TTP at distal hallux stump -Able to move digits 2-4 -Muscle strength 5 out of 5 across ankle joint -Calf is soft and nontender -[-] TTP at plantar mid-arch Assessment Assessment Problems Medical Problems: (1) Cellulitis of great toe of left foot Status: Acute (2) Cellulitis of left foot Status: Acute (3) Hypertension Status: Acute Plan Plan of Care Left hallux osteomyelitis Type 2 diabetes, peripheral neuropathy and PAD -Intraoperative finding was insignificant for proximal tracking along extensor tendons the osteolytic changes were limited to the head of proximal hallux. Wound bed bleeding was attenuated. -Clinical findings remarked improved skin flap perfusion and less erythema -Daily surveillance lab: CBC, BMP -Antibiotics: Currently on ceftriaxone and vancomycin, please de-escalate based on culture/pathology report - Wound cx [04/01]: Pending - Wound cx [03/30]: S. Lugdunensis, Corynebacteria, Finegoldia - BCX [03/29]: No growth to date -Weightbearing restriction: Nonweightbearing to the surgical foot -Physical therapy: Eval and treat -Nurse communication: -Keep the dressing clean, dry intact Dispo: NPO ater MN in preparation for I&D and delayed wound closure. Pt may be d/c as soon as 04/04 with two weeks of oral abx driven by cx Comment Review of Relevant I have reviewed the following items ziyad (where applicable) has been applied. Labs Laboratory Tests Test 03/31/22 17:04 03/31/22 19:58 04/01/22 04:15 04/01/22 07:55 Glucose (Fingerstick) 118 mg/dL (70-99) 210 mg/dL (70-99) 169 mg/dL (70-99) Sodium Level 142 mmol/L (136-145) Potassium Level 4.0 mmol/L (3.5-5.1) Chloride Level 107 mmol/L (98-107) Carbon Dioxide Level 26 mmol/L (21-32) Anion Gap 9 (6-14) Blood Urea Nitrogen 15 mg/dL (8-26) Creatinine 1.1 mg/dL (0.7-1.3) Estimated GFR (Cockcroft-Gault) 68.5 Glucose Level 133 mg/dL (70-99) Calcium Level 9.1 mg/dL (8.5-10.1) Test 04/01/22 11:28 04/01/22 15:27 04/01/22 17:08 04/01/22 20:01 Glucose (Fingerstick) 143 mg/dL (70-99) 124 mg/dL (70-99) 137 mg/dL (70-99) 312 mg/dL (70-99) Test 04/02/22 04:05 04/02/22 07:13 04/02/22 11:32 White Blood Count 6.5 x10^3/uL (4.0-11.0) Red Blood Count 4.36 x10^6/uL (4.30-5.70) Hemoglobin 13.8 g/dL (13.0-17.5) Hematocrit 39.2 % (39.0-53.0) Mean Corpuscular Volume 90 fL (79-100) Mean Corpuscular Hemoglobin 32 pg (25-35) Mean Corpuscular Hemoglobin Concent 35 g/dL (31-37) Red Cell Distribution Width 13.3 % (11.5-14.5) Platelet Count 192 x10^3/uL (140-400) Neutrophils (%) (Auto) 82 % (31-73) Lymphocytes (%) (Auto) 13 % (24-48) Monocytes (%) (Auto) 5 % (0-9) Eosinophils (%) (Auto) 0 % (0-3) Basophils (%) (Auto) 0 % (0-3) Neutrophils # (Auto) 5.3 x10^3/uL (1.8-7.7) Lymphocytes # (Auto) 0.8 x10^3/uL (1.0-4.8) Monocytes # (Auto) 0.3 x10^3/uL (0.0-1.1) Eosinophils # (Auto) 0.0 x10^3/uL (0.0-0.7) Basophils # (Auto) 0.0 x10^3/uL (0.0-0.2) Sodium Level 139 mmol/L (136-145) Potassium Level 4.2 mmol/L (3.5-5.1) Chloride Level 106 mmol/L (98-107) Carbon Dioxide Level 25 mmol/L (21-32) Anion Gap 8 (6-14) Blood Urea Nitrogen 17 mg/dL (8-26) Creatinine 1.2 mg/dL (0.7-1.3) Estimated GFR (Cockcroft-Gault) 62.0 Glucose Level 174 mg/dL (70-99) Calcium Level 9.3 mg/dL (8.5-10.1) Glucose (Fingerstick) 143 mg/dL (70-99) 177 mg/dL (70-99) Laboratory Tests Test 04/01/22 15:27 04/01/22 17:08 04/01/22 20:01 04/02/22 04:05 Glucose (Fingerstick) 124 mg/dL (70-99) 137 mg/dL (70-99) 312 mg/dL (70-99) White Blood Count 6.5 x10^3/uL (4.0-11.0) Red Blood Count 4.36 x10^6/uL (4.30-5.70) Hemoglobin 13.8 g/dL (13.0-17.5) Hematocrit 39.2 % (39.0-53.0) Mean Corpuscular Volume 90 fL (79-100) Mean Corpuscular Hemoglobin 32 pg (25-35) Mean Corpuscular Hemoglobin Concent 35 g/dL (31-37) Red Cell Distribution Width 13.3 % (11.5-14.5) Platelet Count 192 x10^3/uL (140-400) Neutrophils (%) (Auto) 82 % (31-73) Lymphocytes (%) (Auto) 13 % (24-48) Monocytes (%) (Auto) 5 % (0-9) Eosinophils (%) (Auto) 0 % (0-3) Basophils (%) (Auto) 0 % (0-3) Neutrophils # (Auto) 5.3 x10^3/uL (1.8-7.7) Lymphocytes # (Auto) 0.8 x10^3/uL (1.0-4.8) Monocytes # (Auto) 0.3 x10^3/uL (0.0-1.1) Eosinophils # (Auto) 0.0 x10^3/uL (0.0-0.7) Basophils # (Auto) 0.0 x10^3/uL (0.0-0.2) Sodium Level 139 mmol/L (136-145) Potassium Level 4.2 mmol/L (3.5-5.1) Chloride Level 106 mmol/L (98-107) Carbon Dioxide Level 25 mmol/L (21-32) Anion Gap 8 (6-14) Blood Urea Nitrogen 17 mg/dL (8-26) Creatinine 1.2 mg/dL (0.7-1.3) Estimated GFR (Cockcroft-Gault) 62.0 Glucose Level 174 mg/dL (70-99) Calcium Level 9.3 mg/dL (8.5-10.1) Test 04/02/22 07:13 04/02/22 11:32 Glucose (Fingerstick) 143 mg/dL (70-99) 177 mg/dL (70-99) Microbiology 04/01/22 Gram Stain - Final, Resulted 04/01/22 Aerobic and Anaerobic Culture, Resulted Pending 03/29/22 Blood Culture - Preliminary, Resulted NO GROWTH AFTER 4 DAYS Medications Current Medications Hydralazine HCl (Apresoline Inj) 10 mg 1X ONCE IVP Last administered on 03/28/22at 17:39; Start 03/28/22 at 17:30; Stop 03/28/22 at 17:31; Status DC Sodium Chloride 1,000 ml @ 999 mls/hr 1X ONCE IV Last administered on 03/28/22at 17:39; Start 03/28/22 at 17:30; Stop 03/28/22 at 18:30; Status DC Vancomycin HCl (Vanco Per Pharmacy) 1 each PRN DAILY PRN MC SEE COMMENTS Last administered on 04/01/22at 11:39; Start 03/28/22 at 18:30 Piperacillin Sod/ Tazobactam Sod (Zosyn Per Pharmacy) 1 each PRN DAILY PRN MC SEE COMMENTS; Start 03/28/22 at 18:30; Stop 03/29/22 at 11:02; Status DC Piperacillin Sod/ Tazobactam Sod 3.375 gm/Sodium Chloride 50 ml @ 100 mls/hr 1X ONCE IV Last administered on 03/28/22at 19:33; Start 03/28/22 at 19:00; Stop 03/28/22 at 19:29; Status DC Vancomycin HCl 2 gm/Sodium Chloride 500 ml @ 250 mls/hr 1X ONCE IV Last administered on 03/28/22at 20:00; Start 03/28/22 at 19:00; Stop 03/28/22 at 20:59; Status DC Clonidine HCl (Catapres) 0.1 mg 1X ONCE PO Last administered on 03/28/22at 18:51; Start 03/28/22 at 18:45; Stop 03/28/22 at 18:58; Status DC Piperacillin Sod/ Tazobactam Sod 3.375 gm/Sodium Chloride 50 ml @ 100 mls/hr Q6HRS IV Last administered on 03/29/22at 05:41; Start 03/29/22 at 00:00; Stop 03/29/22 at 11:02; Status DC Vancomycin HCl 1.25 gm/Sodium Chloride 250 ml @ 167 mls/hr Q12H IV Last administered on 04/02/22at 08:46; Start 03/29/22 at 08:00 Vancomycin HCl (Vancomycin Trough Level) 1 each 1X ONCE MC Last administered on 03/30/22at 07:30; Start 03/30/22 at 07:30; Stop 03/30/22 at 07:31; Status DC Acetaminophen (Tylenol) 650 mg PRN Q6HRS PRN PO MILD PAIN / TEMP > 100.3'F Last administered on 03/29/22at 08:22; Start 03/28/22 at 21:45; Stop 03/29/22 at 11:43; Status DC Ceftriaxone Sodium (Rocephin) 2 gm Q24H IVP Last administered on 04/02/22at 12:23; Start 03/29/22 at 12:00 Lisinopril (Prinivil) 20 mg DAILY PO ; Start 03/29/22 at 12:00; Stop 03/29/22 at 11:20; Status DC Hydralazine HCl (Apresoline Inj) 10 mg PRN Q4HRS PRN IVP ELEVATED BP, SEE COMM, 1ST CHC Last administered on 03/31/22at 02:55; Start 03/29/22 at 11:30 Amlodipine Besylate (Norvasc) 10 mg DAILY PO Last administered on 04/02/22at 08:42; Start 03/29/22 at 12:00 Ondansetron HCl (Zofran) 4 mg PRN Q6HRS PRN IVP NAUSEA/VOMITING; Start 03/29/22 at 11:30 Al Hydroxide/Mg Hydroxide (Mylanta Plus Xs) 30 ml PRN Q3HRS PRN PO HEARTBURN / GAS; Start 03/29/22 at 11:30 Calcium Carbonate/ Glycine (Tums) 500 mg PRN Q3HRS PRN PO UPSET STOMACH; Start 03/29/22 at 11:30 Zolpidem Tartrate (Ambien) 5 mg PRN QHS PRN PO INSOMNIA, MAY REPEAT IN 1HR; Start 03/29/22 at 11:30 Acetaminophen/ Hydrocodone Bitart (Lortab 5/325) 1 tab PRN Q4HRS PRN PO MILD PAIN 1-3; Start 03/29/22 at 11:30 Acetaminophen/ Hydrocodone Bitart (Lortab 5/325) 2 tab PRN Q4HRS PRN PO MODERATE PAIN, SEVERE PAIN; Start 03/29/22 at 11:30 Acetaminophen (Tylenol) 650 mg PRN Q6HRS PRN PO Headaches, Temp > 101.5F; Start 03/29/22 at 11:30 Heparin Sodium (Porcine) (Heparin Sodium) 5,000 unit Q8HRS SQ Last administered on 04/02/22at 14:37; Start 03/29/22 at 14:00 Labetalol HCl (Normodyne Iv Push) 20 mg PRN Q2HR PRN IVP HYPERTENSION, 2ND CHOICE; Start 03/29/22 at 11:30 Lactobacillus Rhamnosus (Culturelle) 1 cap BID PO Last administered on 04/02/22at 08:42; Start 03/29/22 at 21:00 Clonidine HCl (Catapres) 0.1 mg STK-MED ONCE .ROUTE ; Start 03/28/22 at 18:49; Stop 03/30/22 at 14:47; Status DC Insulin Human Lispro (HumaLOG) 0-7 UNITS TIDWMEALS SQ Last administered on 04/02/22at 12:30; Start 03/30/22 at 17:00 Dextrose (Dextrose 50%-Water Syringe) 12.5 gm PRN Q15MIN PRN IV SEE COMMENTS; Start 03/30/22 at 16:30 Fentanyl Citrate (Fentanyl 2ml Vial) 25 mcg PRN Q5MIN PRN IVP MILD PAIN 1-3; Start 04/01/22 at 15:30; Stop 04/01/22 at 20:00; Status DC Fentanyl Citrate (Fentanyl 2ml Vial) 50 mcg PRN Q5MIN PRN IVP MODERATE PAIN 4- 6; Start 04/01/22 at 15:30; Stop 04/01/22 at 20:00; Status DC Morphine Sulfate (Morphine Sulfate) 1 mg PRN Q10MIN PRN IVP SEVERE PAIN 7-10; Start 04/01/22 at 15:30; Stop 04/01/22 at 20:00; Status DC Ringer's Solution 1,000 ml @ 30 mls/hr Q24H IV Last administered on 04/01/22at 15:29; Start 04/01/22 at 15:30; Stop 04/02/22 at 03:29; Status DC Hydromorphone HCl (Dilaudid) 0.5 mg PRN Q10MIN PRN IVP SEVERE PAIN 7-10, 2nd CHOICE; Start 04/01/22 at 15:30; Stop 04/01/22 at 20:00; Status DC Prochlorperazine Edisylate (Compazine) 5 mg PACU PRN PRN IVP NAUSEA, MRX1; Start 04/01/22 at 15:30; Stop 04/01/22 at 20:00; Status DC Insulin Human Lispro (HumaLOG VIAL for OP,RR ONLY) 0-10 units PRN Q1HR PRN SQ PER PROTOCOL; Start 04/01/22 at 15:30; Stop 04/02/22 at 15:29 Ketorolac Tromethamine (Toradol 30mg Vial) 30 mg STK-MED ONCE .ROUTE ; Start 04/01/22 at 16:06; Stop 04/01/22 at 16:07; Status DC Bupivacaine HCl (Sensorcaine Mpf 0.25%) 30 ml STK-MED ONCE .ROUTE Last administered on 04/01/22at 16:26; Start 04/01/22 at 16:10; Stop 04/01/22 at 16:10; Status DC Propofol (Diprivan) 200 mg STK-MED ONCE IV ; Start 04/01/22 at 16:25; Stop 04/01/22 at 16:26; Status DC Dexamethasone Sodium Phosphate (Decadron) 4 mg STK-MED ONCE .ROUTE ; Start 04/01/22 at 16:25; Stop 04/01/22 at 16:26; Status DC Lidocaine HCl (Lidocaine Pf 2% Vial) 5 ml STK-MED ONCE .ROUTE ; Start 04/01/22 at 16:25; Stop 04/01/22 at 16:26; Status DC Ondansetron HCl (Zofran) 4 mg STK-MED ONCE .ROUTE ; Start 04/01/22 at 16:26; Stop 04/01/22 at 16:26; Status DC Sevoflurane (Ultane) 60 ml STK-MED ONCE IH ; Start 04/01/22 at 16:26; Stop 04/01/22 at 16:26; Status DC Acetaminophen (Tylenol) 650 mg 1X ONCE PO Last administered on 04/01/22at 17:39; Start 04/01/22 at 16:45; Stop 04/01/22 at 16:46; Status DC Oxycodone/ Acetaminophen (Percocet 5/325) 1 tab 1X ONCE PO Last administered on 04/01/22at 17:39; Start 04/01/22 at 16:45; Stop 04/01/22 at 16:46; Status DC Sevoflurane (Ultane) 30 ml STK-MED ONCE IH ; Start 04/01/22 at 16:39; Stop 04/02/22 at 08:57; Status DC Active Scripts Active Cyclobenzaprine Hcl 5 Mg Tablet 1 Tab PO TID Ibuprofen 600 Mg Tablet 600 Mg PO PRN Q6HRS PRN Bactrim Ds Tablet (Sulfamethoxazole/Trimethoprim) 1 Each Tablet 1 Tab PO BID 10 Days Keflex (Cephalexin) 500 Mg Capsule 2 Cap PO Q12HR Reported Clonazepam (Clonazepam) 0.5 Mg Tablet 1 Tab PO BID [place] Solostar (Insulin Glargine,Hum.rec.anlog) 300 Unit/1 Ml Insuln.pen 20 Unit SQ DAILYWSUP Diovan (Valsartan) 80 Mg Tablet 0 PO DAILY Valacyclovir (Valacyclovir Hcl) 1,000 Mg Tablet 1 Tab PO DAILY Vitals/I & O Vital Sign - Last 24 Hours 04/01/22 04/01/22 04/01/22 04/01/22 16:44 16:44 17:05 17:19 Temp 97.2 97.2 Pulse 70 70 63 Resp 14 16 16 B/P (MAP) 167/75 167/75 Pulse Ox 100 99 96 O2 Delivery Mask Room Air Room Air O2 Flow Rate 10.0 04/01/22 04/01/22 04/01/22 04/01/22 17:30 17:39 18:00 18:25 Pulse 56 64 B/P (MAP) 175/74 (107) 180/72 (108) Pulse Ox 96 96 O2 Delivery Room Air Room Air Room Air Room Air 04/01/22 04/01/22 04/01/22 04/01/22 18:30 19:04 20:05 20:25 Temp 98.3 98.4 98.3 98.4 Pulse 67 65 66 Resp 16 18 B/P (MAP) 154/64 (94) 154/61 (92) 150/63 (92) Pulse Ox 96 97 O2 Delivery Room Air Room Air Room Air 04/01/22 04/01/22 04/02/22 04/02/22 21:05 23:00 03:00 07:00 Temp 98.3 98.5 98.7 97.8 98.3 98.5 98.7 97.8 Pulse 65 53 44 50 Resp 17 18 18 18 B/P (MAP) 149/67 (94) 145/65 (91) 151/76 (101) 138/69 (92) Pulse Ox 97 95 99 O2 Delivery Room Air O2 Flow Rate 96.0 04/02/22 04/02/22 04/02/22 04/02/22 08:30 08:42 10:45 15:00 Temp 97.9 97.9 97.9 97.9 Pulse 50 62 68 Resp 18 18 B/P (MAP) 138/69 144/60 (88) 168/83 (111) Pulse Ox 99 99 O2 Delivery Room Air Room Air Room Air Intake and Output 04/01/22 04/01/22 04/02/22 15:00 23:00 07:00 Intake Total 250 ml 100 ml 200 ml Balance 250 ml 100 ml 200 ml Justifications for Admission Other Justification MARGARITO ROBERTSON DPJareth April 02, 2022 15:29
--- NOTE | 2022-04-02 16:13 | NUR ---
SS following up with discharge planning. SS reviewed pt chart and discussed with pt RN. Pt is currently on room air. Pt on IV Rocephin and IV Vancomycin. COVID19 negative. Self pay. Med Assist following. SS will continue to follow for discharge planning.
[2022-04-02] MEDS: HYDROcodone/APAP 5/325MG 1 TAB TABLET PO PRN ×2 (16:15→22:00)
[2022-04-02 19:00] VITALS: BP 166/74
[2022-04-02 23:00] VITALS: BP 118/61
[2022-04-03 03:00] VITALS: BP 141/58
[2022-04-03] MEDS: HEPARIN for SUB-Q USE 5,000 UNIT/ML VIAL. SQ SCH ×3 (04:13→20:25)
[2022-04-03 07:00] VITALS: BP 180/79
[2022-04-03] MEDS ORDERED: fentaNYL PF VIAL 100 MCG/2 ML VIAL ONE (08:08)
[2022-04-03] MEDS ORDERED: LIDOCAINE 2% PF 5 ML VIAL. ONE (08:09)
[2022-04-03] MEDS ORDERED: DEXAMETHASONE SOD PHOS 4 MG/ML VIAL ONE (08:09)
[2022-04-03] MEDS ORDERED: MIDAZOLAM HCL/PF 2 MG/2 ML VIAL. ONE (08:09)
[2022-04-03] MEDS ORDERED: PROPOFOL 10 MG/ML (20ML) VIAL. IV ONE (08:09)
[2022-04-03] MEDS ORDERED: ONDANSETRON PF 4 MG/2 ML VIAL. ONE (08:09)
--- NOTE | 2022-04-03 08:24 | PDOC ---
[facility] PROGRESS NOTE Date of Service DOS: DATE: 04/03/22 TIME: 08:22 Chief Complaint Chief Complaint Cellulitis left first toe - Preliminary cultures with staph elsaunensis Finegoinocenciaia magna Left great toe diabetic ulcers x2 Possible osteomyelitis left first toe -s/p partial amputation 04/01/2022 Uncontrolled HTN DM2 Anxiety FEN -ADA PPX - lovenox FULL CODE Dispo - inpatient History of Present Illness History of Present Illness 03/30: Patient seen and evaluated. Pain in his left toe is tolerable. He has been seen by Dr. Koroma and they discussed partial amputation of his left first toe on Friday, patient is agreeable. Aerobic and anaerobic cultures collected from left toe drainage yesterday with no growth to date. 03/31: Patient denies significant pain in his left first toe. He is scheduled for partial amputation tomorrow with podiatry. CBG yesterday 219; he was initially on sliding scale insulin, and blood glucose 164 this morning. Continue IV antibiotics. Cultures pending. 04/01: Left great toe still with some pain has not tried to bear weight. N.p.o. for partial amputation today. Glucose less than 180. Initial gram stain negative culture results pending. 04/02: Status post left hallux partial imitation with good blood flow. Delayed closure wound is packed with iodinated gauze. Patient is relatively pain-free. Pending arterial Doppler of left lower extremity today. 04/03: Preliminary cultures with staph elsaunensis [place] abdirashida. No growth on intraoperative cultures however. Left lower extremity arterial study reveals left SFA occlusive disease with distal reconstitution and monophasic waveforms throughout. N.p.o. for return to the OR for delayed closure left foot which does look improved. Having some pain today. Vitals/I&O Vitals/I&O: Vital Signs Date Time Temp Pulse Resp B/P (MAP) Pulse Ox O2 Delivery O2 Flow Rate FiO2 04/03/22 03:00 97.4 49 20 141/58 (85) 97 Room Air 97.4 04/02/22 16:53 96.0 I & O 04/02/22 04/02/22 04/03/22 15:00 23:00 07:00 Intake Total 730 ml 340 ml 0 ml Balance 730 ml 340 ml 0 ml Physical Exam General: Alert, Oriented X3, Cooperative, No acute distress Heart: Regular rate Lungs: Clear Abdomen: Soft, No hepatosplenomegaly Extremities: Normal pulses Skin: Other (Edematous and erythematous left first toe) Labs Labs: Laboratory Tests Test 04/02/22 11:32 04/02/22 16:36 04/02/22 19:57 Glucose (Fingerstick) 177 mg/dL (70-99) 156 mg/dL (70-99) 215 mg/dL (70-99) Assessment and Plan Assessmemt and Plan Problems Medical Problems: (1) Cellulitis of great toe of left foot Status: Acute (2) Cellulitis of left foot Status: Acute (3) Hypertension Status: Acute Comment Review of Relevant I have reviewed the following items ziyad (where applicable) has been applied. Justifications for Admission Other Justification SANDY JOE MD April 03, 2022 08:23
[2022-04-03] MEDS ORDERED: IV RINGERS,LACTATED 1000ML 1,000 ML IV SCH (08:45)
[2022-04-03] MEDS ORDERED: fentaNYL PF VIAL 100 MCG/2 ML VIAL IVP PRN ×2 (08:45)
[2022-04-03] MEDS ORDERED: BUPIVACAINE MPF 0.25% 30 ML VIAL. ONE (08:45)
[2022-04-03] MEDS ORDERED: PROCHLORPERAZINE 10 MG/2 ML VIAL. IVP PRN (08:45)
[2022-04-03] MEDS ORDERED: HYDROmorphone 2 MG/ML INJ. IVP PRN (08:45)
[2022-04-03] MEDS ORDERED: MORPHINE SULFATE 2 MG/ML INJ. IVP PRN (08:45)
[2022-04-03] MEDS: VANCOMYCIN 1.25 GM in IV NORMAL SALINE 250ML 250 ML IV SCH ×2 (08:48→20:20)
[2022-04-03] MEDS: INSULIN LISPRO 300 UNITS/3 ML VIAL. SQ SCH ×3 (08:50→17:54)
[2022-04-03 09:23] LABS: CALCIUM 9.1 mg/dL (8.5-10.1); CREATININE 1.1 mg/dL (0.7-1.3); GFR 68.5
--- NOTE | 2022-04-03 09:44 | PDOC4 ---
OPERATIVE NOTE Date: Date: April 03, 2022 Pre-Op Diagnosis: Left hallux diabetic ulcer Post-Op Diagnosis: Same as above S/p partial left hallux amputation, packed open 2 days ago Procedure Performed: Left partial hallux amputation, repeat incision and drainage, delayed wound closure Surgeon: Margarito Robertson DPM Anesthesia Type: General Blood Loss: 5 cc Specimans Obtained: Distal stump of the proximal phalange of the left hallux Deep tissue culture after washout Findings: The remaining stump of the hallux was firm to probe without any clinical findings of osteolytic changes. There was no proximal streaking, purulence or fluctuance noted. The wound bed was granular and bled well. Additional partial hallux amputation was performed for soft tissue closure. Complications: None Operative Note: Patient was brought into the operating room and placed on the operating table in a supine position. A timeout was performed to confirm patient's identity, location of surgery and procedure. After induction of general anesthesia, 10 cc of 0.25% Marcaine plain was infiltrated to the left distal first ray. The left lower extremity was then scrubbed, prepped and draped in the usual sterile manner. Then the attention was directed to the left distal hallux wound. The soft tissue flap was surviving however the wound was not able to be closed under minimal tension. Then the decision was made to further resect the hallux stump. Then a sagittal saw was used and a 3 mm wafer was resected off the hallux s tump. The proximal margin was inked for osteomyelitis rule out. Then copious saline solution was used to irrigate the wound site. We did not notice any purulence, proximal tracking or necrotic changes to the wound bed. Deep tissue culture was collected and sent for gram stain, culture and sensitivity, anaerobes and aerobes. The distal skin flap was remodeled with a modified fi shmouth incision and I was able to close the wound under minimal tension. The surgical site was closed with 4 Monocryl and 4-0 nylon. The surgical foot was dressed with 4 x 4 gauze, soft roll and Jaret bandage with minimal compression. Patient tolerated procedure anesthesia well with vital signs stable and neurovascular status intact. Patient was then transferred to PACU for continued recovery. Pending surgical foot x-ray 3 view in PACU. MARGARITO ROBERTSON DPM April 03, 2022 09:44
[2022-04-03] MEDS ORDERED: DEXTROSE 50% 25 GM / 50ML DISP.SYRIN. IV PRN (09:45)
[2022-04-03] MEDS ORDERED: oxyCODONE/APAP 5/325 1 TAB TABLET PO ONE (10:00)
[2022-04-03] MEDS ORDERED: GABAPENTIN 100 MG CAPSULE. PO ONE (10:00)
[2022-04-03] MEDS ORDERED: ACETAMINOPHEN 325 MG TABLET. PO ONE (10:00)
[2022-04-03 11:00] VITALS: BP 178/73
[2022-04-03] MEDS: LACTOBACILLUS RHAMNOSUS GG 1 CAPSULE. PO SCH ×2 (11:15→20:20)
[2022-04-03] MEDS: hydrALAZINE 20 MG/ML VIAL. IVP PRN (11:15)
--- NOTE | 2022-04-03 11:47 | NUR ---
SS following up with discharge planning. SS reviewed pt chart and discussed with pt RN. Pt is currently on room air. Pt on IV Rocephin and IV Vancomycin. COVID19 negative. Self pay. Med Assist following. Pt having closure of toe amputation today. Discharge plan is currently to home when medically ready for discharge. SS will continue to follow for discharge planning.
--- NOTE | 2022-04-03 12:10 | RAD ---
EXAM: Left foot, 3 views. HISTORY: Amputation. COMPARISON: 04/01/2022 FINDINGS: 3 views of the left foot are obtained. There has been extension of prior left great toe amp utation. Amputation line now extends to the base of the first proximal phalanx. There is no overlying soft tissue defect. There is stable chronic deformity of the tuft of the second distal phalanx. Ther e is a small plantar spur. There are vascular calcifications. IMPRESSION: Extension of great toe amputation. The amputation line is now at the base of the first pr oximal phalanx. Electronically signed by: Radha Crowley MD (04/03/2022 12:07 PM) [id number]
--- NOTE | 2022-04-03 13:01 | PDOC2 ---
CONSULT Date of Service Date of Service DATE: 04/03/22 TIME: 12:37 Reason for Consult Reason for Consult: Abnormal arterial ultrasound Referring Physician Referring Physician: Dr. Barker Identification/Chief Complaint Chief Complaint Left first Toe pain with ulceration and drainage Source Source: Chart review, Patient History of Present Illness Reason for Visit: This is a pleasant 61-year-old male with past medical history diabetes, hypertension, peripheral neuropathy and anxiety who presents to the ED with complaints of left first toe pain. Patient reports he has a history of callus/blister on the plantar surface of his left toe off on for several weeks. Approximately 3 to 4 days ago the blister opened and patient noted purulent drainage. Patient states prior to admission he did not have insurance and therefore was not taking any medications to control his diabetes or hypertension. X-ray was left foot showed acute or chronic cortical irregularity at the distal phalanx of his great toe; early osteomyelitis could not be excluded. Patient received IV antibiotics in the ED. he has continued to receive antibiotics since admission. Patient underwent right first toe open amputation with return to surgery for washout and closure. During his hospitalization an arterial ultrasound was performed which showed mid left SFA occlusion with reconstitution as well as monophasic flow distally. He denies any history of lower extremity claudication. He does report some mild neuropathy. Past Medical History Cardiovascular: HTN Endocrine: Diabetes Past Surgical History Past Surgical History left rotator cuff repair Family History Family History non-contributory Social History 1 pack per day ALCOHOL: heavy Drugs: Marijuana Current Problem List Problem List Problems Medical Problems: (1) Cellulitis of great toe of left foot Status: Acute (2) Cellulitis of left foot Status: Acute (3) Hypertension Status: Acute Current Medications Current Medications Current Medications Hydralazine HCl (Apresoline Inj) 10 mg 1X ONCE IVP Last administered on 03/28/22at 17:39; Start 03/28/22 at 17:30; Stop 03/28/22 at 17:31; Status DC Sodium Chloride 1,000 ml @ 999 mls/hr 1X ONCE IV Last administered on 03/28/22at 17:39; Start 03/28/22 at 17:30; Stop 03/28/22 at 18:30; Status DC Vancomycin HCl (Vanco Per Pharmacy) 1 each PRN DAILY PRN MC SEE COMMENTS Last administered on 04/02/22at 15:28; Start 03/28/22 at 18:30 Piperacillin Sod/ Tazobactam Sod (Zosyn Per Pharmacy) 1 each PRN DAILY PRN MC SEE COMMENTS; Start 03/28/22 at 18:30; Stop 03/29/22 at 11:02; Status DC Piperacillin Sod/ Tazobactam Sod 3.375 gm/Sodium Chloride 50 ml @ 100 mls/hr 1X ONCE IV Last administered on 03/28/22at 19:33; Start 03/28/22 at 19:00; Stop 03/28/22 at 19:29; Status DC Vancomycin HCl 2 gm/Sodium Chloride 500 ml @ 250 mls/hr 1X ONCE IV Last administered on 03/28/22at 20:00; Start 03/28/22 at 19:00; Stop 03/28/22 at 20:59; Status DC Clonidine HCl (Catapres) 0.1 mg 1X ONCE PO Last administered on 03/28/22at 18:51; Start 03/28/22 at 18:45; Stop 03/28/22 at 18:58; Status DC Piperacillin Sod/ Tazobactam Sod 3.375 gm/Sodium Chloride 50 ml @ 100 mls/hr Q6HRS IV Last administered on 03/29/22at 05:41; Start 03/29/22 at 00:00; Stop 03/29/22 at 11:02; Status DC Vancomycin HCl 1.25 gm/Sodium Chloride 250 ml @ 167 mls/hr Q12H IV Last ad ministered on 04/03/22at 08:48; Start 03/29/22 at 08:00 Vancomycin HCl (Vancomycin Trough Level) 1 each 1X ONCE MC Last administered on 03/30/22at 07:30; Start 03/30/22 at 07:30; Stop 03/30/22 at 07:31; Status DC Acetaminophen (Tylenol) 650 mg PRN Q6HRS PRN PO MILD PAIN / TEMP > 100.3'F Last administered on 03/29/22at 08:22; Start 03/28/22 at 21:45; Stop 03/29/22 at 11:43; Status DC Ceftriaxone Sodium (Rocephin) 2 gm Q24H IVP Last administered on 04/02/22at 12:23; Start 03/29/22 at 12:00 Lisinopril (Prinivil) 20 mg DAILY PO ; Start 03/29/22 at 12:00; Stop 03/29/22 at 11:20; Status DC Hydralazine HCl (Apresoline Inj) 10 mg PRN Q4HRS PRN IVP ELEVATED BP, SEE COMM, 1ST CHC Last administered on 04/03/22at 11:15; Start 03/29/22 at 11:30 Amlodipine Besylate (Norvasc) 10 mg DAILY PO Last administered on 04/03/22at 11:15; Start 03/29/22 at 12:00 Ondansetron HCl (Zofran) 4 mg PRN Q6HRS PRN IVP NAUSEA/VOMITING; Start 03/29/22 at 11:30 Al Hydroxide/Mg Hydroxide (Mylanta Plus Xs) 30 ml PRN Q3HRS PRN PO HEARTBURN / GAS; Start 03/29/22 at 11:30 Calcium Carbonate/ Glycine (Tums) 500 mg PRN Q3HRS PRN PO UPSET STOMACH; Start 03/29/22 at 11:30 Zolpidem Tartrate (Ambien) 5 mg PRN QHS PRN PO INSOMNIA, MAY REPEAT IN 1HR; Start 03/29/22 at 11:30 Acetaminophen/ Hydrocodone Bitart (Lortab 5/325) 1 tab PRN Q4HRS PRN PO MILD PAIN 1-3 Last administered on 04/02/22at 22:00; Start 03/29/22 at 11:30 Acetaminophen/ Hydrocodone Bitart (Lortab 5/325) 2 tab PRN Q4HRS PRN PO MODERATE PAIN, SEVERE PAIN; Start 03/29/22 at 11:30 Acetaminophen (Tylenol) 650 mg PRN Q6HRS PRN PO Headaches, Temp > 101.5F; Start 03/29/22 at 11:30 Heparin Sodium (Porcine) (Heparin Sodium) 5,000 unit Q8HRS SQ Last administered on 04/02/22at 14:37; Start 03/29/22 at 14:00 Labetalol HCl (Normodyne Iv Push) 20 mg PRN Q2HR PRN IVP HYPERTENSION, 2ND CHOICE; Start 03/29/22 at 11:30 Lactobacillus Rhamnosus (Culturelle) 1 cap BID PO Last administered on 04/03/22at 11:15; Start 03/29/22 at 21:00 Clonidine HCl (Catapres) 0.1 mg STK-MED ONCE .ROUTE ; Start 03/28/22 at 18:49; Stop 03/30/22 at 14:47; Status DC Insulin Human Lispro (HumaLOG) 0-7 UNITS TIDWMEALS SQ Last administered on 04/02/22at 12:30; Start 03/30/22 at 17:00 Dextrose (Dextrose 50%-Water Syringe) 12.5 gm PRN Q15MIN PRN IV SEE COMMENTS; Start 03/30/22 at 16:30; Stop 04/03/22 at 09:45; Status DC Fentanyl Citrate (Fentanyl 2ml Vial) 25 mcg PRN Q5MIN PRN IVP MILD PAIN 1-3; Start 04/01/22 at 15:30; Stop 04/01/22 at 20:00; Status DC Fentanyl Citrate (Fentanyl 2ml Vial) 50 mcg PRN Q5MIN PRN IVP MODERATE PAIN 4- 6; Start 04/01/22 at 15:30; Stop 04/01/22 at 20:00; Status DC Morphine Sulfate (Morphine Sulfate) 1 mg PRN Q10MIN PRN IVP SEVERE PAIN 7-10; Start 04/01/22 at 15:30; Stop 04/01/22 at 20:00; Status DC Ringer's Solution 1,000 ml @ 30 mls/hr Q24H IV Last administered on 04/01/22at 15:29; Start 04/01/22 at 15:30; Stop 04/02/22 at 03:29; Status DC Hydromorphone HCl (Dilaudid) 0.5 mg PRN Q10MIN PRN IVP SEVERE PAIN 7-10, 2nd CHOICE; Start 04/01/22 at 15:30; Stop 04/01/22 at 20:00; Status DC Prochlorperazine Edisylate (Compazine) 5 mg PACU PRN PRN IVP NAUSEA, MRX1; Start 04/01/22 at 15:30; Stop 04/01/22 at 20:00; Status DC Insulin Human Lispro (HumaLOG VIAL for OP,RR ONLY) 0-10 units PRN Q1HR PRN SQ PER PROTOCOL; Start 04/01/22 at 15:30; Stop 04/02/22 at 15:29; Status DC Ketorolac Tromethamine (Toradol 30mg Vial) 30 mg STK-MED ONCE .ROUTE ; Start 04/01/22 at 16:06; Stop 04/01/22 at 16:07; Status DC Bupivacaine HCl (Sensorcaine Mpf 0.25%) 30 ml STK-MED ONCE .ROUTE Last administered on 04/01/22at 16:26; Start 04/01/22 at 16:10; Stop 04/01/22 at 16:10; Status DC Propofol (Diprivan) 200 mg STK-MED ONCE IV ; Start 04/01/22 at 16:25; Stop 04/01/22 at 16:26; Status DC Dexamethasone Sodium Phosphate (Decadron) 4 mg STK-MED ONCE .ROUTE ; Start 04/01/22 at 16:25; Stop 04/01/22 at 16:26; Status DC Lidocaine HCl (Lidocaine Pf 2% Vial) 5 ml STK-MED ONCE .ROUTE ; Start 04/01/22 at 16:25; Stop 04/01/22 at 16:26; Status DC Ondansetron HCl (Zofran) 4 mg STK-MED ONCE .ROUTE ; Start 04/01/22 at 16:26; Stop 04/01/22 at 16:26; Status DC Sevoflurane (Ultane) 60 ml STK-MED ONCE IH ; Start 04/01/22 at 16:26; Stop 04/01/22 at 16:26; Status DC Acetaminophen (Tylenol) 650 mg 1X ONCE PO Last administered on 04/01/22at 17:39; Start 04/01/22 at 16:45; Stop 04/01/22 at 16:46; Status DC Oxycodone/ Acetaminophen (Percocet 5/325) 1 tab 1X ONCE PO Last administered on 04/01/22at 17:39; Start 04/01/22 at 16:45; Stop 04/01/22 at 16:46; Status DC Sevoflurane (Ultane) 30 ml STK-MED ONCE IH ; Start 04/01/22 at 16:39; Stop 04/02/22 at 08:57; Status DC Fentanyl Citrate (Fentanyl 2ml Vial) 100 mcg STK-MED ONCE .ROUTE ; Start 04/03/22 at 08:08; Stop 04/03/22 at 08:09; Status DC Midazolam HCl (Versed) 2 mg STK-MED ONCE .ROUTE ; Start 04/03/22 at 08:09; Stop 04/03/22 at 08:09; Status DC Dexamethasone Sodium Phosphate (Decadron) 4 mg STK-MED ONCE .ROUTE ; Start 04/03/22 at 08:09; Stop 04/03/22 at 08:09; Status DC Lidocaine HCl (Lidocaine Pf 2% Vial) 5 ml STK-MED ONCE .ROUTE ; Start 04/03/22 at 08:09; Stop 04/03/22 at 08:09; Status DC Propofol (Diprivan) 200 mg STK-MED ONCE IV ; Start 04/03/22 at 08:09; Stop 04/03/22 at 08:09; Status DC Ondansetron HCl (Zofran) 4 mg STK-MED ONCE .ROUTE ; Start 04/03/22 at 08:09; Stop 04/03/22 at 08:09; Status DC Fentanyl Citrate (Fentanyl 2ml Vial) 25 mcg PRN Q5MIN PRN IVP MILD PAIN 1-3; Start 04/03/22 at 08:45; Stop 04/04/22 at 08:44 Fentanyl Citrate (Fentanyl 2ml Vial) 50 mcg PRN Q5MIN PRN IVP MODERATE PAIN 4- 6; Start 04/03/22 at 08:45; Stop 04/04/22 at 08:44 Morphine Sulfate (Morphine Sulfate) 1 mg PRN Q10MIN PRN IVP SEVERE PAIN 7-10; Start 04/03/22 at 08:45; Stop 04/04/22 at 08:44 Ringer's Solution 1,000 ml @ 30 mls/hr Q24H IV Last administered on 04/03/22at 08:47; Start 04/03/22 at 08:45; Stop 04/03/22 at 20:44 Hydromorphone HCl (Dilaudid) 0.5 mg PRN Q10MIN PRN IVP SEVERE PAIN 7-10, 2nd CHOICE; Start 04/03/22 at 08:45; Stop 04/04/22 at 08:44 Prochlorperazine Edisylate (Compazine) 5 mg PACU PRN PRN IVP NAUSEA, MRX1; Start 04/03/22 at 08:45; Stop 04/04/22 at 08:44 Bupivacaine HCl (Sensorcaine Mpf 0.25%) 30 ml STK-MED ONCE .ROUTE Last administered on 04/03/22at 11:14; Start 04/03/22 at 08:45; Stop 04/03/22 at 08:46; Status DC Dextrose (Dextrose 50%-Water Syringe) 12.5 gm PRN Q15MIN PRN IV SEE COMMENTS; Start 04/03/22 at 09:45 Gabapentin (Neurontin) 100 mg ONCE ONCE PO Last administered on 04/03/22at 11:15; Start 04/03/22 at 10:00; Stop 04/03/22 at 10:01; Status DC Acetaminophen (Tylenol) 650 mg 1X ONCE PO Last administered on 04/03/22at 11 :14; Start 04/03/22 at 10:00; Stop 04/03/22 at 10:01; Status DC Oxycodone/ Acetaminophen (Percocet 5/325) 1 tab 1X ONCE PO Last administered on 04/03/22at 11:16; Start 04/03/22 at 10:00; Stop 04/03/22 at 10:01; Status DC Active Scripts Active Cyclobenzaprine Hcl 5 Mg Tablet 1 Tab PO TID Ibuprofen 600 Mg Tablet 600 Mg PO PRN Q6HRS PRN Bactrim Ds Tablet (Sulfamethoxazole/Trimethoprim) 1 Each Tablet 1 Tab PO BID 10 Days Keflex (Cephalexin) 500 Mg Capsule 2 Cap PO Q12HR Reported Clonazepam (Clonazepam) 0.5 Mg Tablet 1 Tab PO BID [place] Solostar (Insulin Glargine,Hum.rec.anlog) 300 Unit/1 Ml Insuln.pen 20 Unit SQ DAILYWSUP Diovan (Valsartan) 80 Mg Tablet 0 PO DAILY Valacyclovir (Valacyclovir Hcl) 1,000 Mg Tablet 1 Tab PO DAILY Allergies Allergies: Coded Allergies: No Known Drug Allergies (Unverified , 07/31/16) ROS Review of System Constitutional: Denies fever or chills Eyes: Blindness right eye HENT: Denies nasal congestion or sore throat Respiratory: Denies cough or shortness of breath Cardiovascular: Denies any palpitations or chest pain GI: Denies abdominal pain, nausea, vomiting, bloody stools or diarrhea : Denies dysuria or hematuria Musculoskeletal: As per HPI Integument: As per HPI Neurologic: No gross deficits Endocrine: Diabetes Physical Exam Physical Exam General: Alert and oriented X3 HEENT: Atraumatic, Pupils equal, round. Mucous membranes moist. Cardiac: Heart rate regular. Normal carotid pulses. Lungs: Non-labored respirations. Abdomen: Thin, soft. Extremities: 2+ palpable bilateral femoral pulses bilateral, Biphasic doppler signal with handheld doppler left DP. Musculoskeletal: Gait steady. Moving all extremities. Skin: Left first toe amputation incision is dry and intact. There is mild erythema and swelling at base of toe. Minimal erythema in forefoot. Rigth foot unremarkable. Neurological: Motor and sensation intact. Psychiatry: No depression or anxiety Vitals VITALS Vital Signs Date Time Temp Pulse Resp B/P (MAP) Pulse Ox O2 Delivery O2 Flow Rate FiO2 04/03/22 11:16 97 Room Air 96.0 04/03/22 11:15 60 187/92 04/03/22 11:00 98.5 17 98.5 Labs Labs Laboratory Tests Laboratory Tests Test 04/02/22 16:36 04/02/22 19:57 04/03/22 07:10 04/03/22 08:44 Glucose (Fingerstick) 156 mg/dL (70-99) 215 mg/dL (70-99) 124 mg/dL (70-99) Sodium Level 143 mmol/L (136-145) Potassium Level 4.0 mmol/L (3.5-5.1) Chloride Level 107 mmol/L (98-107) Carbon Dioxide Level 26 mmol/L (21-32) Anion Gap 10 (6-14) Blood Urea Nitrogen 19 mg/dL (8-26) Creatinine 1.1 mg/dL (0.7-1.3) Estimated GFR (Cockcroft-Gault) 68.5 Glucose Level 126 mg/dL (70-99) Calcium Level 9.1 mg/dL (8.5-10.1) Test 04/03/22 10:43 04/03/22 11:58 Glucose (Fingerstick) 154 mg/dL (70-99) 243 mg/dL (70-99) Images Images Left foot Xray and Arterial US reviewed Assessment/Plan Assessment/Plan 61-year-old male with peripheral arterial disease, uncontrolled diabetes, and diabetic foot ulceration. Patient has had surgical amputation of his left first toe with subsequent washout and closure. Left lower extremity arterial ultrasound suggest mid left superficial femoral artery occlusion with monophasic flow distally. Amputation site looks clean. Patient is anxious to discharge from the hospital. He states he has applied for [employer] and prefers to wait for that to start prior to any additional procedures. Would recommend continued close monitoring. Would recommend continued diabetes management, antibiotics, and smoking cessation. Will defer wound management and offloading to podiatry. We will evaluate by Dr. Ng Addendum: The patient was seen and examined in consultation on April 03, 2022. He is a 61-year-old male with diabetes mellitus and peripheral arterial disease diagnosed by ultrasound during this hospitalization. He underwent a left first toe amputation by podiatry and the incision is intact with no signs of infection. Arterial duplex scan shows occlusion of his left superficial femoral artery. He does have Doppler flow in his left foot but I do not palpate a strong palpable pulse. I would recommend an angiogram and treatment of his superficial femoral artery to optimize circulation and give him the best chance at this amputation heals. He will be set up for an angiogram tomorrow. He is anxious to be discharged but I explained to him without optimal circulation there is a significant chance that this amputation will not heal and then he will need a metatarsal head amputation which will make ambulation more difficult. He is agreeable to stay in the hospital and proceed with angiogram tomorrow. Recommend daily aspirin and statin medication REGULO Ivory MD, APRN April 03, 2022 13:01 SURINDER NG MD April 03, 2022 13:49
[2022-04-03] MEDS: cefTRIAXone IV Push 2 GM VIAL. IVP SCH (13:14)
[2022-04-03 15:00] VITALS: BP 153/63
--- NOTE | 2022-04-03 17:28 | PDOC ---
PROGRESS NOTES Date of Service DATE: 04/03/22 TIME: 17:24 Subjective Subjective Date of surgery: 04/03, left foot partial hallux amputation, incision and drainage, delayed wound closure Patient was resting comfortable in bed without any postoperative pain. He has been minimally heel touchdown weightbearing without any difficulty. Patient was seen by vascular whom recommended angiogram tomorrow. Postoperative dressing was taken down by vascular for physical exam. Objective Objective Vital Signs Date Time Temp Pulse Resp B/P (MAP) Pulse Ox O2 Delivery O2 Flow Rate FiO2 04/03/22 15:00 98.1 69 17 153/63 (93) 100 Room Air 98.1 04/03/22 11:16 96.0 Intake and Output 04/03/22 07:00 Intake Total 1070 ml Balance 1070 ml Intake Oral 820 ml IV Total 250 ml Physical Exam Physical Exam Physical Exam General: Pleasant without apparent distress, AOx3 Dermatology: -Dressing was placed across the surgical foot. I did not feel necessary to address it again at bedside. Instead, I reinforced it with tape and Jaret with minimal to no compression Vascular: -CFT less than 3 seconds x 5 -Toes are warm to touch Neurology: -Light touch sensation diminished to the level of midfoot MSK: -Able to move digits 2-4 -Muscle strength 5 out of 5 across ankle joint -Calf is soft and nontender -[-] TTP at plantar mid-arch Assessment Assessment Problems Medical Problems: (1) Cellulitis of great toe of left foot Status: Acute (2) Cellulitis of left foot Status: Acute (3) Hypertension Status: Acute Plan Plan of Care Plan Left hallux osteomyelitis Type 2 diabetes, peripheral neuropathy and PAD -S/p delayed wound closure today. Intraoperative finding remarked adequate for skin flap bleeding and I was able to close wound under minimal condition after partial hallux amputation. -Remains aleukocytosis -Antibiotics: Currently on ceftriaxone and vancomycin, please de-escalate based on culture/pathology report -Wound culture [04/03]: Pending - Wound cx [04/01]: No growth to date - Wound cx [03/30]: S. Lugdunensis, Corynebacteria, Finegoldia - Pathology [04/01]: Pending -Weightbearing restriction: Nonweightbearing to the surgical foot, please place a surgical shoe for protection -Physical therapy: Eval and treat -Nurse communication: -Keep the dressing clean, dry intact Dispo: From my perspective, patient is safe to be discharged with oral antibiotics driven by intraoperative culture for 2 weeks. Clinical findings were insignificant for remaining osteomyelitis. Patient to be followed up in my clinic in 2 weeks for skin check. In the meantime, nonweightbearing or partial heel touchdown weightbearing in the surgical shoe. Dressings to be kept clean, dry intact. Comment Review of Relevant I have reviewed the following items ziyad (where applicable) has been applied. Labs Laboratory Tests Test 04/01/22 20:01 04/02/22 04:05 04/02/22 07:13 04/02/22 11:32 Glucose (Fingerstick) 312 mg/dL (70-99) 143 mg/dL (70-99) 177 mg/dL (70-99) White Blood Count 6.5 x10^3/uL (4.0-11.0) Red Blood Count 4.36 x10^6/uL (4.30-5.70) Hemoglobin 13.8 g/dL (13.0-17.5) Hematocrit 39.2 % (39.0-53.0) Mean Corpuscular Volume 90 fL (79-100) Mean Corpuscular Hemoglobin 32 pg (25-35) Mean Corpuscular Hemoglobin Concent 35 g/dL (31-37) Red Cell Distribution Width 13.3 % (11.5-14.5) Platelet Count 192 x10^3/uL (140-400) Neutrophils (%) (Auto) 82 % (31-73) Lymphocytes (%) (Auto) 13 % (24-48) Monocytes (%) (Auto) 5 % (0-9) Eosinophils (%) (Auto) 0 % (0-3) Basophils (%) (Auto) 0 % (0-3) Neutrophils # (Auto) 5.3 x10^3/uL (1.8-7.7) Lymphocytes # (Auto) 0.8 x10^3/uL (1.0-4.8) Monocytes # (Auto) 0.3 x10^3/uL (0.0-1.1) Eosinophils # (Auto) 0.0 x10^3/uL (0.0-0.7) Basophils # (Auto) 0.0 x10^3/uL (0.0-0.2) Sodium Level 139 mmol/L (136-145) Potassium Level 4.2 mmol/L (3.5-5.1) Chloride Level 106 mmol/L (98-107) Carbon Dioxide Level 25 mmol/L (21-32) Anion Gap 8 (6-14) Blood Urea Nitrogen 17 mg/dL (8-26) Creatinine 1.2 mg/dL (0.7-1.3) Estimated GFR (Cockcroft-Gault) 62.0 Glucose Level 174 mg/dL (70-99) Calcium Level 9.3 mg/dL (8.5-10.1) Test 04/02/22 16:36 04/02/22 19:57 04/03/22 07:10 04/03/22 08:44 Glucose (Fingerstick) 156 mg/dL (70-99) 215 mg/dL (70-99) 124 mg/dL (70-99) Sodium Level 143 mmol/L (136-145) Potassium Level 4.0 mmol/L (3.5-5.1) Chloride Level 107 mmol/L (98-107) Carbon Dioxide Level 26 mmol/L (21-32) Anion Gap 10 (6-14) Blood Urea Nitrogen 19 mg/dL (8-26) Creatinine 1.1 mg/dL (0.7-1.3) Estimated GFR (Cockcroft-Gault) 68.5 Glucose Level 126 mg/dL (70-99) Calcium Level 9.1 mg/dL (8.5-10.1) Test 04/03/22 10:43 04/03/22 11:58 04/03/22 16:48 Glucose (Fingerstick) 154 mg/dL (70-99) 243 mg/dL (70-99) 220 mg/dL (70-99) Laboratory Tests Test 04/02/22 19:57 04/03/22 07:10 04/03/22 08:44 04/03/22 10:43 Glucose (Fingerstick) 215 mg/dL (70-99) 124 mg/dL (70-99) 154 mg/dL (70-99) Sodium Level 143 mmol/L (136-145) Potassium Level 4.0 mmol/L (3.5-5.1) Chloride Level 107 mmol/L (98-107) Carbon Dioxide Level 26 mmol/L (21-32) Anion Gap 10 (6-14) Blood Urea Nitrogen 19 mg/dL (8-26) Creatinine 1.1 mg/dL (0.7-1.3) Estimated GFR (Cockcroft-Gault) 68.5 Glucose Level 126 mg/dL (70-99) Calcium Level 9.1 mg/dL (8.5-10.1) Test 04/03/22 11:58 04/03/22 16:48 Glucose (Fingerstick) 243 mg/dL (70-99) 220 mg/dL (70-99) Microbiology 04/01/22 Gram Stain - Final, Resulted 04/01/22 Aerobic and Anaerobic Culture - Preliminary, Resulted 03/29/22 Blood Culture - Final, Complete NO GROWTH AFTER 5 DAYS Medications Current Medications Hydralazine HCl (Apresoline Inj) 10 mg 1X ONCE IVP Last administered on 03/28/22at 17:39; Start 03/28/22 at 17:30; Stop 03/28/22 at 17:31; Status DC Sodium Chloride 1,000 ml @ 999 mls/hr 1X ONCE IV Last administered on at 17:39; Start 03/28/22 at 17:30; Stop 03/28/22 at 18:30; Status DC Vancomycin HCl (Vanco Per Pharmacy) 1 each PRN DAILY PRN MC SEE COMMENTS Last administered on 04/02/22at 15:28; Start 03/28/22 at 18:30 Piperacillin Sod/ Tazobactam Sod (Zosyn Per Pharmacy) 1 each PRN DAILY PRN MC SEE COMMENTS; Start 03/28/22 at 18:30; Stop 03/29/22 at 11:02; Status DC Piperacillin Sod/ Tazobactam Sod 3.375 gm/Sodium Chloride 50 ml @ 100 mls/hr 1X ONCE IV Last administered on 03/28/22at 19:33; Start 03/28/22 at 19:00; Stop 03/28/22 at 19:29; Status DC Vancomycin HCl 2 gm/Sodium Chloride 500 ml @ 250 mls/hr 1X ONCE IV Last administered on 03/28/22at 20:00; Start 03/28/22 at 19:00; Stop 03/28/22 at 20:59; Status DC Clonidine HCl (Catapres) 0.1 mg 1X ONCE PO Last administered on 03/28/22at 18:51; Start 03/28/22 at 18:45; Stop 03/28/22 at 18:58; Status DC Piperacillin Sod/ Tazobactam Sod 3.375 gm/Sodium Chloride 50 ml @ 100 mls/hr Q6HRS IV Last administered on 03/29/22at 05:41; Start 03/29/22 at 00:00; Stop 03/29/22 at 11:02; Status DC Vancomycin HCl 1.25 gm/Sodium Chloride 250 ml @ 167 mls/hr Q12H IV Last administered on 04/03/22at 08:48; Start 03/29/22 at 08:00 Vancomycin HCl (Vancomycin Trough Level) 1 each 1X ONCE MC Last administered on 03/30/22at 07:30; Start 03/30/22 at 07:30; Stop 03/30/22 at 07:31; Status DC Acetaminophen (Tylenol) 650 mg PRN Q6HRS PRN PO MILD PAIN / TEMP > 100.3'F Last administered on 03/29/22at 08:22; Start 03/28/22 at 21:45; Stop 03/29/22 at 11:43; Status DC Ceftriaxone Sodium (Rocephin) 2 gm Q24H IVP Last administered on 04/03/22at 13:14; Start 03/29/22 at 12:00 Lisinopril (Prinivil) 20 mg DAILY PO ; Start 03/29/22 at 12:00; Stop 03/29/22 at 11:20; Status DC Hydralazine HCl (Apresoline Inj) 10 mg PRN Q4HRS PRN IVP ELEVATED BP, SEE COMM, 1ST CHC Last administered on 04/03/22at 11:15; Start 03/29/22 at 11:30 Amlodipine Besylate (Norvasc) 10 mg DAILY PO Last administered on 04/03/22at 11:15; Start 03/29/22 at 12:00 Ondansetron HCl (Zofran) 4 mg PRN Q6HRS PRN IVP NAUSEA/VOMITING; Start 03/29/22 at 11:30 Al Hydroxide/Mg Hydroxide (Mylanta Plus Xs) 30 ml PRN Q3HRS PRN PO HEARTBURN / GAS; Start 03/29/22 at 11:30 Calcium Carbonate/ Glycine (Tums) 500 mg PRN Q3HRS PRN PO UPSET STOMACH; Start 03/29/22 at 11:30 Zolpidem Tartrate (Ambien) 5 mg PRN QHS PRN PO INSOMNIA, MAY REPEAT IN 1HR; Start 03/29/22 at 11:30 Acetaminophen/ Hydrocodone Bitart (Lortab 5/325) 1 tab PRN Q4HRS PRN PO MILD PAIN 1-3 Last administered on 04/02/22at 22:00; Start 03/29/22 at 11:30 Acetaminophen/ Hydrocodone Bitart (Lortab 5/325) 2 tab PRN Q4HRS PRN PO MODERATE PAIN, SEVERE PAIN; Start 03/29/22 at 11:30 Acetaminophen (Tylenol) 650 mg PRN Q6HRS PRN PO Headaches, Temp > 101.5F; Start 03/29/22 at 11:30 Heparin Sodium (Porcine) (Heparin Sodium) 5,000 unit Q8HRS SQ Last administered on 04/02/22at 14:37; Start 03/29/22 at 14:00 Labetalol HCl (Normodyne Iv Push) 20 mg PRN Q2HR PRN IVP HYPERTENSION, 2ND CHOICE; Start 03/29/22 at 11:30 Lactobacillus Rhamnosus (Culturelle) 1 cap BID PO Last administered on 04/03/22at 11:15; Start 03/29/22 at 21:00 Clonidine HCl (Catapres) 0.1 mg STK-MED ONCE .ROUTE ; Start 03/28/22 at 18:49; Stop 03/30/22 at 14:47; Status DC Insulin Human Lispro (HumaLOG) 0-7 UNITS TIDWMEALS SQ Last administered on 04/03/22at 13:21; Start 03/30/22 at 17:00 Dextrose (Dextrose 50%-Water Syringe) 12.5 gm PRN Q15MIN PRN IV SEE COMMENTS; Start 03/30/22 at 16:30; Stop 04/03/22 at 09:45; Status DC Fentanyl Citrate (Fentanyl 2ml Vial) 25 mcg PRN Q5MIN PRN IVP MILD PAIN 1-3; Start 04/01/22 at 15:30; Stop 04/01/22 at 20:00; Status DC Fentanyl Citrate (Fentanyl 2ml Vial) 50 mcg PRN Q5MIN PRN IVP MODERATE PAIN 4- 6; Start 04/01/22 at 15:30; Stop 04/01/22 at 20:00; Status DC Morphine Sulfate (Morphine Sulfate) 1 mg PRN Q10MIN PRN IVP SEVERE PAIN 7-10; Start 04/01/22 at 15:30; Stop 04/01/22 at 20:00; Status DC Ringer's Solution 1,000 ml @ 30 mls/hr Q24H IV Last administered on 04/01/22at 15:29; Start 04/01/22 at 15:30; Stop 04/02/22 at 03:29; Status DC Hydromorphone HCl (Dilaudid) 0.5 mg PRN Q10MIN PRN IVP SEVERE PAIN 7-10, 2nd CHOICE; Start 04/01/22 at 15:30; Stop 04/01/22 at 20:00; Status DC Prochlorperazine Edisylate (Compazine) 5 mg PACU PRN PRN IVP NAUSEA, MRX1; Start 04/01/22 at 15:30; Stop 04/01/22 at 20:00; Status DC Insulin Human Lispro (HumaLOG VIAL for OP,RR ONLY) 0-10 units PRN Q1HR PRN SQ PER PROTOCOL; Start 04/01/22 at 15:30; Stop 04/02/22 at 15:29; Status DC Ketorolac Tromethamine (Toradol 30mg Vial) 30 mg STK-MED ONCE .ROUTE ; Start 04/01/22 at 16:06; Stop 04/01/22 at 16:07; Status DC Bupivacaine HCl (Sensorcaine Mpf 0.25%) 30 ml STK-MED ONCE .ROUTE Last administered on 04/01/22at 16:26; Start 04/01/22 at 16:10; Stop 04/01/22 at 16:10; Status DC Propofol (Diprivan) 200 mg STK-MED ONCE IV ; Start 04/01/22 at 16:25; Stop 04/01/22 at 16:26; Status DC Dexamethasone Sodium Phosphate (Decadron) 4 mg STK-MED ONCE .ROUTE ; Start 04/01/22 at 16:25; Stop 04/01/22 at 16:26; Status DC Lidocaine HCl (Lidocaine Pf 2% Vial) 5 ml STK-MED ONCE .ROUTE ; Start 04/01/22 at 16:25; Stop 04/01/22 at 16:26; Status DC Ondansetron HCl (Zofran) 4 mg STK-MED ONCE .ROUTE ; Start 04/01/22 at 16:26; Stop 04/01/22 at 16:26; Status DC Sevoflurane (Ultane) 60 ml STK-MED ONCE IH ; Start 04/01/22 at 16:26; Stop 04/01/22 at 16:26; Status DC Acetaminophen (Tylenol) 650 mg 1X ONCE PO Last administered on 04/01/22at 17:39; Start 04/01/22 at 16:45; Stop 04/01/22 at 16:46; Status DC Oxycodone/ Acetaminophen (Percocet 5/325) 1 tab 1X ONCE PO Last administered on 04/01/22at 17:39; Start 04/01/22 at 16:45; Stop 04/01/22 at 16:46; Status DC Sevoflurane (Ultane) 30 ml STK-MED ONCE IH ; Start 04/01/22 at 16:39; Stop 04/02/22 at 08:57; Status DC Fentanyl Citrate (Fentanyl 2ml Vial) 100 mcg STK-MED ONCE .ROUTE ; Start 04/03/22 at 08:08; Stop 04/03/22 at 08:09; Status DC Midazolam HCl (Versed) 2 mg STK-MED ONCE .ROUTE ; Start 04/03/22 at 08:09; Stop 04/03/22 at 08:09; Status DC Dexamethasone Sodium Phosphate (Decadron) 4 mg STK-MED ONCE .ROUTE ; Start 04/03/22 at 08:09; Stop 04/03/22 at 08:09; Status DC Lidocaine HCl (Lidocaine Pf 2% Vial) 5 ml STK-MED ONCE .ROUTE ; Start 04/03/22 at 08:09; Stop 04/03/22 at 08:09; Status DC Propofol (Diprivan) 200 mg STK-MED ONCE IV ; Start 04/03/22 at 08:09; Stop 04/03/22 at 08:09; Status DC Ondansetron HCl (Zofran) 4 mg STK-MED ONCE .ROUTE ; Start 04/03/22 at 08:09; Stop 04/03/22 at 08:09; Status DC Fentanyl Citrate (Fentanyl 2ml Vial) 25 mcg PRN Q5MIN PRN IVP MILD PAIN 1-3; Start 04/03/22 at 08:45; Stop 04/04/22 at 08:44 Fentanyl Citrate (Fentanyl 2ml Vial) 50 mcg PRN Q5MIN PRN IVP MODERATE PAIN 4- 6; Start 04/03/22 at 08:45; Stop 04/04/22 at 08:44 Morphine Sulfate (Morphine Sulfate) 1 mg PRN Q10MIN PRN IVP SEVERE PAIN 7-10; Start 04/03/22 at 08:45; Stop 04/04/22 at 08:44 Ringer's Solution 1,000 ml @ 30 mls/hr Q24H IV Last administered on 04/03/22at 08:47; Start 04/03/22 at 08:45; Stop 04/03/22 at 20:44 Hydromorphone HCl (Dilaudid) 0.5 mg PRN Q10MIN PRN IVP SEVERE PAIN 7-10, 2nd CHOICE; Start 04/03/22 at 08:45; Stop 04/04/22 at 08:44 Prochlorperazine Edisylate (Compazine) 5 mg PACU PRN PRN IVP NAUSEA, MRX1; Start 04/03/22 at 08:45; Stop 04/04/22 at 08:44 Bupivacaine HCl (Sensorcaine Mpf 0.25%) 30 ml STK-MED ONCE .ROUTE Last administered on 04/03/22at 11:14; Start 04/03/22 at 08:45; Stop 04/03/22 at 08:46; Status DC Dextrose (Dextrose 50%-Water Syringe) 12.5 gm PRN Q15MIN PRN IV SEE COMMENTS; Start 04/03/22 at 09:45 Gabapentin (Neurontin) 100 mg ONCE ONCE PO Last administered on 04/03/22at 11:15; Start 04/03/22 at 10:00; Stop 04/03/22 at 10:01; Status DC Acetaminophen (Tylenol) 650 mg 1X ONCE PO Last administered on 04/03/22at 11:14; Start 04/03/22 at 10:00; Stop 04/03/22 at 10:01; Status DC Oxycodone/ Acetaminophen (Percocet 5/325) 1 tab 1X ONCE PO Last administered on 04/03/22at 11:16; Start 04/03/22 at 10:00; Stop 04/03/22 at 10:01; Status DC Active Scripts Active Cyclobenzaprine Hcl 5 Mg Tablet 1 Tab PO TID Ibuprofen 600 Mg Tablet 600 Mg PO PRN Q6HRS PRN Bactrim Ds Tablet (Sulfamethoxazole/Trimethoprim) 1 Each Tablet 1 Tab PO BID 10 Days Keflex (Cephalexin) 500 Mg Capsule 2 Cap PO Q12HR Reported Clonazepam (Clonazepam) 0.5 Mg Tablet 1 Tab PO BID [place] Solostar (Insulin Glargine,Hum.rec.anlog) 300 Unit/1 Ml Insuln.pen 20 Unit SQ DAILYWSUP Diovan (Valsartan) 80 Mg Tablet 0 PO DAILY Valacyclovir (Valacyclovir Hcl) 1,000 Mg Tablet 1 Tab PO DAILY Vitals/I & O Vital Sign - Last 24 Hours 04/02/22 04/02/22 04/02/22 04/02/22 19:00 20:22 22:00 22:30 Temp 98.5 98.5 Pulse 68 Resp 18 B/P (MAP) 166/74 (104) Pulse Ox 97 97 97 O2 Delivery Room Air Room Air Room Air Room Air 04/02/22 04/03/22 04/03/22 04/03/22 23:00 03:00 07:00 08:11 Temp 97.7 97.4 98.0 98.2 97.7 97.4 98.0 98.2 Pulse 67 49 65 52 Resp 20 20 18 17 B/P (MAP) 118/61 (80) 141/58 (85) 180/79 (112) 186/87 Pulse Ox 97 97 100 99 O2 Delivery Room Air Room Air Room Air Room Air 04/03/22 04/03/22 04/03/22 04/03/22 08:16 09:41 09:56 10:11 Temp 97.6 97.6 Pulse 66 60 60 Resp 20 20 20 B/P (MAP) 158/69 195/80 185/80 Pulse Ox 98 98 97 O2 Delivery Room Air Room Air Room Air Room Air O2 Flow Rate 96.0 5/11/22 5/11/22 5/11/22 5/11/22 10:30 11:00 11:15 11:15 Temp 97.0 98.5 97.0 98.5 Pulse 60 51 60 60 Resp 20 17 B/P (MAP) 187/92 178/73 (108) 187/92 187/92 Pulse Ox 97 99 O2 Delivery Room Air Room Air 04/03/22 04/03/22 11:16 15:00 Temp 98.1 98.1 Pulse 69 Resp 17 B/P (MAP) 153/63 (93) Pulse Ox 97 100 O2 Delivery Room Air Room Air O2 Flow Rate 96.0 Intake and Output 04/02/22 04/02/22 04/03/22 15:00 23:00 07:00 Intake Total 730 ml 340 ml 0 ml Balance 730 ml 340 ml 0 ml Justifications for Admission Other Justification MARGARITO ROBERTSON DPJareth April 03, 2022 17:28
[2022-04-03 19:00] VITALS: BP 112/64
[2022-04-03 23:00] VITALS: BP 159/74
[2022-04-04] MEDS: HEPARIN for SUB-Q USE 5,000 UNIT/ML VIAL. SQ SCH (06:00)
[2022-04-04 07:00] VITALS: BP 159/78
[2022-04-04] MEDS: VANCOMYCIN 1.25 GM in IV NORMAL SALINE 250ML 250 ML IV SCH (08:00)
--- NOTE | 2022-04-04 08:54 | PDOC ---
PROGRESS NOTES Date of Service DATE: 04/04/22 TIME: 08:49 Subjective Subjective Patient sitting up in bed, eating breakfast. No complaints. Objective Objective Vital Signs Date Time Temp Pulse Resp B/P (MAP) Pulse Ox O2 Delivery O2 Flow Rate FiO2 04/04/22 07:31 20 95 Room Air 04/04/22 07:00 97.8 60 159/78 (105) 97.8 04/03/22 11:16 96.0 Intake and Output 04/04/22 07:00 Intake Total 950 ml Output Total 410 ml Balance 540 ml Intake Oral 500 ml IV Total 450 ml Output Urine Total 400 ml Estimated Blood Loss 10 ml Physical Exam Physical Exam Awake and alert HRR Non-labored respirations Left foot dressing dry and intact Assessment Assessment Problems Medical Problems: (1) Cellulitis of great toe of left foot Status: Acute (2) Cellulitis of left foot Status: Acute (3) Hypertension Status: Acute Plan Plan of Care 61-year-old male with peripheral arterial disease, diabetic foot ulcer status post left first toe amputation. Ultrasound suggest left SFA occlusion, recommendation is for angiogram. Patient did not want angiogram during this hospitalization he would like to return as an outpatient. Recommend patient continue to monitor wound at least every 2 to 3 days. Dressing changes per Podiatry. Recommend daily aspirin and statin therapy. Agressive diabetes management. Smoking cessation. Patient to follow up with a primary care physician. Follow up in our office in 2 weeks for ABIs and to discuss angiogram. Comment Review of Relevant I have reviewed the following items ziyad (where applicable) has been applied. Labs Laboratory Tests Test 04/02/22 11:32 04/02/22 16:36 04/02/22 19:57 04/03/22 07:10 Glucose (Fingerstick) 177 mg/dL (70-99) 156 mg/dL (70-99) 215 mg/dL (70-99) Sodium Level 143 mmol/L (136-145) Potassium Level 4.0 mmol/L (3.5-5.1) Chloride Level 107 mmol/L (98-107) Carbon Dioxide Level 26 mmol/L (21-32) Anion Gap 10 (6-14) Blood Urea Nitrogen 19 mg/dL (8-26) Creatinine 1.1 mg/dL (0.7-1.3) Estimated GFR (Cockcroft-Gault) 68.5 Glucose Level 126 mg/dL (70-99) Calcium Level 9.1 mg/dL (8.5-10.1) Test 04/03/22 08:44 04/03/22 10:43 04/03/22 11:58 04/03/22 16:48 Glucose (Fingerstick) 124 mg/dL (70-99) 154 mg/dL (70-99) 243 mg/dL (70-99) 220 mg/dL (70-99) Test 04/03/22 20:21 04/04/22 07:21 Glucose (Fingerstick) 251 mg/dL (70-99) 169 mg/dL (70-99) Laboratory Tests Test 04/03/22 10:43 04/03/22 11:58 04/03/22 16:48 04/03/22 20:21 Glucose (Fingerstick) 154 mg/dL (70-99) 243 mg/dL (70-99) 220 mg/dL (70-99) 251 mg/dL (70-99) Test 04/04/22 07:21 Glucose (Fingerstick) 169 mg/dL (70-99) Microbiology 04/01/22 Gram Stain - Final, Resulted 04/01/22 Aerobic and Anaerobic Culture - Preliminary, Resulted 03/29/22 Blood Culture - Final, Complete NO GROWTH AFTER 5 DAYS Medications Current Medications Hydralazine HCl (Apresoline Inj) 10 mg 1X ONCE IVP Last administered on 03/28/22at 17:39; Start 03/28/22 at 17:30; Stop 03/28/22 at 17:31; Status DC Sodium Chloride 1,000 ml @ 999 mls/hr 1X ONCE IV Last administered on 03/28/22at 17:39; Start 03/28/22 at 17:30; Stop 03/28/22 at 18:30; Status DC Vancomycin HCl (Vanco Per Pharmacy) 1 each PRN DAILY PRN MC SEE COMMENTS Last administered on 04/02/22at 15:28; Start 03/28/22 at 18:30 Piperacillin Sod/ Tazobactam Sod (Zosyn Per Pharmacy) 1 each PRN DAILY PRN MC SEE COMMENTS; Start 03/28/22 at 18:30; Stop 03/29/22 at 11:02; Status DC Piperacillin Sod/ Tazobactam Sod 3.375 gm/Sodium Chloride 50 ml @ 100 mls/hr 1X ONCE IV Last administered on 03/28/22at 19:33; Start 03/28/22 at 19:00; Stop 03/28/22 at 19:29; Status DC Vancomycin HCl 2 gm/Sodium Chloride 500 ml @ 250 mls/hr 1X ONCE IV Last administered on 03/28/22at 20:00; Start 03/28/22 at 19:00; Stop 03/28/22 at 20:59; Status DC Clonidine HCl (Catapres) 0.1 mg 1X ONCE PO Last administered on 03/28/22at 18:51; Start 03/28/22 at 18:45; Stop 03/28/22 at 18:58; Status DC Piperacillin Sod/ Tazobactam Sod 3.375 gm/Sodium Chloride 50 ml @ 100 mls/hr Q6HRS IV Last administered on 03/29/22at 05:41; Start 03/29/22 at 00:00; Stop 03/29/22 at 11:02; Status DC Vancomycin HCl 1.25 gm/Sodium Chloride 250 ml @ 167 mls/hr Q12H IV Last administered on 04/03/22at 20:20; Start 03/29/22 at 08:00 Vancomycin HCl (Vancomycin Trough Level) 1 each 1X ONCE MC Last administered on 03/30/22at 07:30; Start 03/30/22 at 07:30; Stop 03/30/22 at 07:31; Status DC Acetaminophen (Tylenol) 650 mg PRN Q6HRS PRN PO MILD PAIN / TEMP > 100.3'F Last administered on 03/29/22at 08:22; Start 03/28/22 at 21:45; Stop 03/29/22 at 11:43; Status DC Ceftriaxone Sodium (Rocephin) 2 gm Q24H IVP Last administered on 04/03/22at 13:14; Start 03/29/22 at 12:00 Lisinopril (Prinivil) 20 mg DAILY PO ; Start 03/29/22 at 12:00; Stop 03/29/22 at 11:20; Status DC Hydralazine HCl (Apresoline Inj) 10 mg PRN Q4HRS PRN IVP ELEVATED BP, SEE COMM, 1ST CHC Last administered on 04/03/22at 11:15; Start 03/29/22 at 11:30 Amlodipine Besylate (Norvasc) 10 mg DAILY PO Last administered on 04/03/22at 11:15; Start 03/29/22 at 12:00 Ondansetron HCl (Zofran) 4 mg PRN Q6HRS PRN IVP NAUSEA/VOMITING; Start 03/29/22 at 11:30 Al Hydroxide/Mg Hydroxide (Mylanta Plus Xs) 30 ml PRN Q3HRS PRN PO HEARTBURN / GAS; Start 03/29/22 at 11:30 Calcium Carbonate/ Glycine (Tums) 500 mg PRN Q3HRS PRN PO UPSET STOMACH; Start 03/29/22 at 11:30 Zolpidem Tartrate (Ambien) 5 mg PRN QHS PRN PO INSOMNIA, MAY REPEAT IN 1HR; Start 03/29/22 at 11:30 Acetaminophen/ Hydrocodone Bitart (Lortab 5/325) 1 tab PRN Q4HRS PRN PO MILD PAIN 1-3 Last administered on 04/02/22at 22:00; Start 03/29/22 at 11:30 Acetaminophen/ Hydrocodone Bitart (Lortab 5/325) 2 tab PRN Q4HRS PRN PO MODERATE PAIN, SEVERE PAIN Last administered on 04/04/22at 07:31; Start 03/29/22 at 11:30 Acetaminophen (Tylenol) 650 mg PRN Q6HRS PRN PO Headaches, Temp > 101.5F; Start 03/29/22 at 11:30 Heparin Sodium (Porcine) (Heparin Sodium) 5,000 unit Q8HRS SQ Last administered on 04/03/22at 17:53; Start 03/29/22 at 14:00 Labetalol HCl (Normodyne Iv Push) 20 mg PRN Q2HR PRN IVP HYPERTENSION, 2ND CHOICE; Start 03/29/22 at 11:30 Lactobacillus Rhamnosus (Culturelle) 1 cap BID PO Last administered on 04/03/22at 20:20; Start 03/29/22 at 21:00 Clonidine HCl (Catapres) 0.1 mg STK-MED ONCE .ROUTE ; Start 03/28/22 at 18:49; Stop 03/30/22 at 14:47; Status DC Insulin Human Lispro (HumaLOG) 0-7 UNITS TIDWMEALS SQ Last administered on 04/03/22at 17:54; Start 03/30/22 at 17:00 Dextrose (Dextrose 50%-Water Syringe) 12.5 gm PRN Q15MIN PRN IV SEE COMMENTS; Start 03/30/22 at 16:30; Stop 04/03/22 at 09:45; Status DC Fentanyl Citrate (Fentanyl 2ml Vial) 25 mcg PRN Q5MIN PRN IVP MILD PAIN 1-3; Start 04/01/22 at 15:30; Stop 04/01/22 at 20:00; Status DC Fentanyl Citrate (Fentanyl 2ml Vial) 50 mcg PRN Q5MIN PRN IVP MODERATE PAIN 4- 6; Start 04/01/22 at 15:30; Stop 04/01/22 at 20:00; Status DC Morphine Sulfate (Morphine Sulfate) 1 mg PRN Q10MIN PRN IVP SEVERE PAIN 7-10; Start 04/01/22 at 15:30; Stop 04/01/22 at 20:00; Status DC Ringer's Solution 1,000 ml @ 30 mls/hr Q24H IV Last administered on 04/01/22at 15:29; Start 04/01/22 at 15:30; Stop 04/02/22 at 03:29; Status DC Hydromorphone HCl (Dilaudid) 0.5 mg PRN Q10MIN PRN IVP SEVERE PAIN 7-10, 2nd CHOICE; Start 04/01/22 at 15:30; Stop 04/01/22 at 20:00; Status DC Prochlorperazine Edisylate (Compazine) 5 mg PACU PRN PRN IVP NAUSEA, MRX1; Start 04/01/22 at 15:30; Stop 04/01/22 at 20:00; Status DC Insulin Human Lispro (HumaLOG VIAL for OP,RR ONLY) 0-10 units PRN Q1HR PRN SQ PER PROTOCOL; Start 04/01/22 at 15:30; Stop 04/02/22 at 15:29; Status DC Ketorolac Tromethamine (Toradol 30mg Vial) 30 mg STK-MED ONCE .ROUTE ; Start at 16:06; Stop 04/01/22 at 16:07; Status DC Bupivacaine HCl (Sensorcaine Mpf 0.25%) 30 ml STK-MED ONCE .ROUTE Last admini stered on 04/01/22at 16:26; Start 04/01/22 at 16:10; Stop 04/01/22 at 16:10; Status DC Propofol (Diprivan) 200 mg STK-MED ONCE IV ; Start 04/01/22 at 16:25; Stop 04/01/22 at 16:26; Status DC Dexamethasone Sodium Phosphate (Decadron) 4 mg STK-MED ONCE .ROUTE ; Start 04/01/22 at 16:25; Stop 04/01/22 at 16:26; Status DC Lidocaine HCl (Lidocaine Pf 2% Vial) 5 ml STK-MED ONCE .ROUTE ; Start 04/01/22 at 16:25; Stop 04/01/22 at 16:26; Status DC Ondansetron HCl (Zofran) 4 mg STK-MED ONCE .ROUTE ; Start 04/01/22 at 16:26; Stop 04/01/22 at 16:26; Status DC Sevoflurane (Ultane) 60 ml STK-MED ONCE IH ; Start 04/01/22 at 16:26; Stop 04/01/22 at 16:26; Status DC Acetaminophen (Tylenol) 650 mg 1X ONCE PO Last administered on 04/01/22at 17:39; Start 04/01/22 at 16:45; Stop 04/01/22 at 16:46; Status DC Oxycodone/ Acetaminophen (Percocet 5/325) 1 tab 1X ONCE PO Last administered on 04/01/22at 17:39; Start 04/01/22 at 16:45; Stop 04/01/22 at 16:46; Status DC Sevoflurane (Ultane) 30 ml STK-MED ONCE IH ; Start 04/01/22 at 16:39; Stop at 08:57; Status DC Fentanyl Citrate (Fentanyl 2ml Vial) 100 mcg STK-MED ONCE .ROUTE ; Start 04/03/22 at 08:08; Stop 04/03/22 at 08:09; Status DC Midazolam HCl (Versed) 2 mg STK-MED ONCE .ROUTE ; Start 04/03/22 at 08:09; Stop 04/03/22 at 08:09; Status DC Dexamethasone Sodium Phosphate (Decadron) 4 mg STK-MED ONCE .ROUTE ; Start 04/03/22 at 08:09; Stop 04/03/22 at 08:09; Status DC Lidocaine HCl (Lidocaine Pf 2% Vial) 5 ml STK-MED ONCE .ROUTE ; Start 04/03/22 at 08:09; Stop 04/03/22 at 08:09; Status DC Propofol (Diprivan) 200 mg STK-MED ONCE IV ; Start 04/03/22 at 08:09; Stop 04/03/22 at 08:09; Status DC Ondansetron HCl (Zofran) 4 mg STK-MED ONCE .ROUTE ; Start 04/03/22 at 08:09; Stop 04/03/22 at 08:09; Status DC Fentanyl Citrate (Fentanyl 2ml Vial) 25 mcg PRN Q5MIN PRN IVP MILD PAIN 1-3; Start 04/03/22 at 08:45; Stop 04/04/22 at 08:44; Status DC Fentanyl Citrate (Fentanyl 2ml Vial) 50 mcg PRN Q5MIN PRN IVP MODERATE PAIN 4- 6; Start 04/03/22 at 08:45; Stop 04/04/22 at 08:44; Status DC Morphine Sulfate (Morphine Sulfate) 1 mg PRN Q10MIN PRN IVP SEVERE PAIN 7-10; Start 04/03/22 at 08:45; Stop 04/04/22 at 08:44; Status DC Ringer's Solution 1,000 ml @ 30 mls/hr Q24H IV Last administered on 04/03/22at 08:47; Start 04/03/22 at 08:45; Stop 04/03/22 at 20:44; Status DC Hydromorphone HCl (Dilaudid) 0.5 mg PRN Q10MIN PRN IVP SEVERE PAIN 7-10, 2nd CHOICE; Start 04/03/22 at 08:45; Stop 04/04/22 at 08:44; Status DC Prochlorperazine Edisylate (Compazine) 5 mg PACU PRN PRN IVP NAUSEA, MRX1; Start 04/03/22 at 08:45; Stop 04/04/22 at 08:44; Status DC Bupivacaine HCl (Sensorcaine Mpf 0.25%) 30 ml STK-MED ONCE .ROUTE Last administered on 04/03/22at 11:14; Start 04/03/22 at 08:45; Stop 04/03/22 at 08:46; Status DC Dextrose (Dextrose 50%-Water Syringe) 12.5 gm PRN Q15MIN PRN IV SEE COMMENTS; Start 04/03/22 at 09:45 Gabapentin (Neurontin) 100 mg ONCE ONCE PO Last administered on 04/03/22at 11:15; Start 04/03/22 at 10:00; Stop 04/03/22 at 10:01; Status DC Acetaminophen (Tylenol) 650 mg 1X ONCE PO Last administered on 04/03/22at 11:14; Start 04/03/22 at 10:00; Stop 04/03/22 at 10:01; Status DC Oxycodone/ Acetaminophen (Percocet 5/325) 1 tab 1X ONCE PO Last administered on 04/03/22at 11:16; Start 04/03/22 at 10:00; Stop 04/03/22 at 10:01; Status DC Active Scripts Active Cyclobenzaprine Hcl 5 Mg Tablet 1 Tab PO TID Ibuprofen 600 Mg Tablet 600 Mg PO PRN Q6HRS PRN Bactrim Ds Tablet (Sulfamethoxazole/Trimethoprim) 1 Each Tablet 1 Tab PO BID 10 Days Keflex (Cephalexin) 500 Mg Capsule 2 Cap PO Q12HR Reported Clonazepam (Clonazepam) 0.5 Mg Tablet 1 Tab PO BID [place] Solostar (Insulin Glargine,Hum.rec.anlog) 300 Unit/1 Ml Insuln.pen 20 Unit SQ DAILYWSUP Diovan (Valsartan) 80 Mg Tablet 0 PO DAILY Valacyclovir (Valacyclovir Hcl) 1,000 Mg Tablet 1 Tab PO DAILY Vitals/I & O Vital Sign - Last 24 Hours 04/03/22 04/03/22 04/03/22 04/03/22 09:41 09:56 10:11 10:30 Temp 97.6 97.0 97.6 97.0 Pulse 66 60 60 60 Resp 20 20 20 20 B/P (MAP) 158/69 195/80 185/80 187/92 Pulse Ox 98 98 97 97 O2 Delivery Room Air Room Air Room Air Room Air 04/03/22 04/03/22 04/03/22 04/03/22 11:00 11:15 11:15 11:16 Temp 98.5 98.5 Pulse 51 60 60 Resp 17 B/P (MAP) 178/73 (108) 187/92 187/92 Pulse Ox 99 97 O2 Delivery Room Air Room Air O2 Flow Rate 96.0 04/03/22 04/03/22 04/03/22 04/03/22 15:00 19:00 20:20 23:00 Temp 98.1 98.5 97.7 98.1 98.5 97.7 Pulse 69 68 75 Resp 17 18 16 B/P (MAP) 153/63 (93) 112/64 (80) 159/74 (102) Pulse Ox 100 96 95 O2 Delivery Room Air Room Air Room Air Room Air 04/04/22 04/04/22 04/04/22 03:00 07:00 07:31 Temp 97.8 97.8 Pulse 60 Resp 20 20 B/P (MAP) 159/78 (105) Pulse Ox 100 95 O2 Delivery Room Air Room Air Room Air Intake and Output 04/03/22 04/03/22 04/04/22 15:00 23:00 07:00 Intake Total 650 ml 300 ml Output Total 10 ml 400 ml Balance 640 ml -100 ml Justifications for Admission Other Justification [employer] April 04, 2022 08:54
[2022-04-04] MEDS: LACTOBACILLUS RHAMNOSUS GG 1 CAPSULE. PO SCH (08:59)
[2022-04-04 09:00] VITALS: BP 159/78
[2022-04-04] MEDS: INSULIN LISPRO 300 UNITS/3 ML VIAL. SQ SCH ×2 (09:09→12:00)
[2022-04-04] MEDS: cefTRIAXone IV Push 2 GM VIAL. IVP SCH (12:00)
[2022-04-04] MEDS ORDERED: HYDR-2761 PO (12:16)
[2022-04-04] MEDS ORDERED: AMLO-187 PO (12:16)
[2022-04-04] MEDS ORDERED: SULF1TAB24 PO (12:16)
[2022-04-04] MEDS ORDERED: CEFD300C PO (12:16)
--- NOTE | 2022-04-04 12:20 | PDOC ---
[facility] PROGRESS NOTE Date of Service DOS: DATE: 04/04/22 TIME: 12:19 Chief Complaint Chief Complaint Cellulitis left first toe - Preliminary cultures with staph elsaunensis Finegoinocenciaia magna Left great toe diabetic ulcers x2 Possible osteomyelitis left first toe -s/p partial amputation 04/01/2022 Uncontrolled HTN DM2 Anxiety FEN -ADA PPX - lovenox FULL CODE Dispo - inpatient History of Present Illness History of Present Illness 03/30: Patient seen and evaluated. Pain in his left toe is tolerable. He has been seen by Dr. Koroma and they discussed partial amputation of his left first toe on Friday, patient is agreeable. Aerobic and anaerobic cultures collected from left toe drainage yesterday with no growth to date. 03/31: Patient denies significant pain in his left first toe. He is scheduled for partial amputation tomorrow with podiatry. CBG yesterday 219; he was initially on sliding scale insulin, and blood glucose 164 this morning. Continue IV antibiotics. Cultures pending. 04/01: Left great toe still with some pain has not tried to bear weight. N.p.o. for partial amputation today. Glucose less than 180. Initial gram stain negative culture results pending. 04/02: Status post left hallux partial imitation with good blood flow. Delayed closure wound is packed with iodinated gauze. Patient is relatively pain-free. Pending arterial Doppler of left lower extremity today. 04/03: Preliminary cultures with staph elsaunensis [place]ia abdirashida. No growth on intraoperative cultures however. Left lower extremity arterial study reveals left SFA occlusive disease with distal reconstitution and monophasic waveforms throughout. N.p.o. for return to the OR for delayed closure left foot which does look improved. Having some pain today. 04/04: Intraoperative cultures with no growth. Tolerated closure well. He would like to delay lower extremity angiography till outpatient given vascular surgery referral and will send home on empiric cefdinir and Bactrim for 10 days and have outpatient follow-up with vascular surgery and outpatient follow-up with podiatry Vitals/I&O Vitals/I&O: Vital Signs Date Time Temp Pulse Resp B/P (MAP) Pulse Ox O2 Delivery O2 Flow Rate FiO2 04/04/22 09:00 60 159/78 04/04/22 07:31 20 95 Room Air 04/04/22 07:00 97.8 97.8 04/03/22 11:16 96.0 I & O 04/03/22 04/03/22 04/04/22 15:00 23:00 07:00 Intake Total 650 ml 300 ml Output Total 10 ml 400 ml Balance 640 ml -100 ml Physical Exam General: Alert, Oriented X3, Cooperative, No acute distress Heart: Regular rate Lungs: Clear Abdomen: Soft, No hepatosplenomegaly Extremities: Normal pulses Skin: Other (Edematous and erythematous left first toe) Labs Labs: Laboratory Tests Test 04/03/22 16:48 04/03/22 20:21 04/04/22 07:21 04/04/22 10:55 Glucose (Fingerstick) 220 mg/dL (70-99) 251 mg/dL (70-99) 169 mg/dL (70-99) 186 mg/dL (70-99) Assessment and Plan Assessmemt and Plan Problems Medical Problems: (1) Cellulitis of great toe of left foot Status: Acute (2) Cellulitis of left foot Status: Acute (3) Hypertension Status: Acute Comment Review of Relevant I have reviewed the following items ziyad (where applicable) has been applied. Justifications for Admission Other Justification SANDY JOE MD April 04, 2022 12:20
--- NOTE | 2022-04-04 12:22 | PDOC3 ---
Discharge Summary Visit Information Date of Admission: March 28, 2022 Date of Discharge: April 04, 2022 Admitting Diagnosis: Cellulitis and abscess left great toe Final Diagnosis Problems Medical Problems: (1) Cellulitis of great toe of left foot Status: Acute (2) Cellulitis of left foot Status: Acute (3) Hypertension Status: Acute Brief Hospital Course Allergies Allergies Coded Allergies Type Severity Reaction Last Updated Verified No Known Drug Allergies 07/31/16 No Vital Signs Vital Signs Date Time Temp Pulse Resp B/P (MAP) Pulse Ox O2 Delivery O2 Flow Rate FiO2 04/04/22 09:00 60 159/78 04/04/22 07:31 20 95 Room Air 04/04/22 07:00 97.8 97.8 04/03/22 11:16 96.0 Lab Results Laboratory Tests Test 04/02/22 16:36 04/02/22 19:57 04/03/22 07:10 04/03/22 08:44 Glucose (Fingerstick) 156 mg/dL (70-99) 215 mg/dL (70-99) 124 mg/dL (70-99) Sodium Level 143 mmol/L (136-145) Potassium Level 4.0 mmol/L (3.5-5.1) Chloride Level 107 mmol/L (98-107) Carbon Dioxide Level 26 mmol/L (21-32) Anion Gap 10 (6-14) Blood Urea Nitrogen 19 mg/dL (8-26) Creatinine 1.1 mg/dL (0.7-1.3) Estimated GFR (Cockcroft-Gault) 68.5 Glucose Level 126 mg/dL (70-99) Calcium Level 9.1 mg/dL (8.5-10.1) Test 04/03/22 10:43 04/03/22 11:58 04/03/22 16:48 04/03/22 20:21 Glucose (Fingerstick) 154 mg/dL (70-99) 243 mg/dL (70-99) 220 mg/dL (70-99) 251 mg/dL (70-99) Test 04/04/22 07:21 04/04/22 10:55 Glucose (Fingerstick) 169 mg/dL (70-99) 186 mg/dL (70-99) Laboratory Tests Test 04/03/22 16:48 04/03/22 20:21 04/04/22 07:21 04/04/22 10:55 Glucose (Fingerstick) 220 mg/dL (70-99) 251 mg/dL (70-99) 169 mg/dL (70-99) 186 mg/dL (70-99) Brief Hospital Course Mr Bolanos is a 61yo male with HTN, DM2 comes to ED with uncontrolled blood pressure 225 417 and left great toe pain and ulceration. Radiograph concerns for osteomyelitis and had consultations with podiatry and vascular surgery. 03/30: Patient seen and evaluated. Pain in his left toe is tolerable. He has been seen by Dr. Koroma and they discussed partial amputation of his left first toe on Friday, patient is agreeable. Aerobic and anaerobic cultures collected from left toe drainage yesterday with no growth to date. 03/31: Patient denies significant pain in his left first toe. He is scheduled for partial amputation tomorrow with podiatry. CBG yesterday 219; he was initially on sliding scale insulin, and blood glucose 164 this morning. Continue IV antibiotics. Cultures pending. 04/01: Left great toe still with some pain has not tried to bear weight. N.p.o. for partial amputation today. Glucose less than 180. Initial gram stain negative culture results pending. 04/02: Status post left hallux partial imitation with good blood flow. Delayed closure wound is packed with iodinated gauze. Patient is relatively pain-free. Pending arterial Doppler of left lower extremity today. 04/03: Preliminary cultures with staph lugdunensis Finegoldia magna. No growth on intraoperative cultures however. Left lower extremity arterial study reveals left SFA occlusive disease with distal reconstitution and monophasic waveforms throughout. N.p.o. for return to the OR for delayed closure left foot which does look improved. Having some pain today. 04/04: Intraoperative cultures with no growth. Tolerated closure well. He would like to delay lower extremity angiography till outpatient given vascular surgery referral and will send home on empiric cefdinir and Bactrim for 10 days and have outpatient follow-up with vascular surgery and outpatient follow-up with podiatry Problem list: Cellulitis left first toe - Preliminary cultures with staph lugdunensis Finegoldia magna Left great toe diabetic ulcers x2 Possible osteomyelitis left first toe -s/p partial amputation 04/01/2022 Uncontrolled HTN DM2 Anxiety Greater than 30 minutes spent on d/c home with outpatient f/u Discharge Information Condition at Discharge: Improved Follow Up: Weeks (1) Disposition/Orders: D/C to Home Scheduled Amlodipine Besylate (Amlodipine Besylate) 10 Mg Tablet, 10 MG PO DAILY for HTN for 30 Days, #30 Ref 5 Prescribed by: SANDY JOE MD on 04/04/22 1216 Cefdinir (Cefdinir) 300 Mg Capsule, 1 CAP PO BID for Foot infection for 10 Days, #20 Prescribed by: SANDY JOE MD on 04/04/22 1216 Sulfamethoxazole/Trimethoprim (Bactrim Ds Tablet) 1 Each Tablet, 1 TAB PO BID for infection for 10 Days, #20 Prescribed by: SANDY JOE MD on 04/04/22 1216 Scheduled PRN Hydrocodone Bit/Acetaminophen (Hydrocodone-Apap 5-325 ) 1 Tab Tablet, 1 TAB PO PRN BID PRN for MILD PAIN 1-3 for 6 Days, #12 Prescribed by: SANDY JOE MD on 04/04/22 1217 Discontinued Medications Cephalexin (Keflex) 500 Mg Capsule, 2 CAP PO Q12HR, #40 Prescribed by: DIMITRI STAFFORD DO on 11/06/20 0932 Clonazepam (Clonazepam ) 0.5 Mg Tablet, 1 TAB PO BID, #60 Ref 1 (Reported) Entered as Reported by: SOCORRO VILLALOBOS on 07/31/16 1110 Cyclobenzaprine Hcl (Cyclobenzaprine Hcl) 5 Mg Tablet, 1 TAB PO TID, #30 Prescribed by: BACILIO SORENSON APRN on 01/26/22 1004 Ibuprofen (Ibuprofen) 600 Mg Tablet, 600 MG PO PRN Q6HRS PRN for INFLAMMATION, #28 Prescribed by: BACILIO SORENSON APRN on 01/26/22 1004 Insulin Glargine,Hum.rec.anlog ([place] Solostar) 300 Unit/1 Ml Insuln.pen, 20 UNIT SQ DAILYWSUP, (Reported) Entered as Reported by: SOCORRO VILLALOBOS on 07/31/16 1109 Valacyclovir Hcl (Valacyclovir) 1,000 Mg Tablet, 1 TAB PO DAILY, #30 Ref 3 (Reported) Entered as Reported by: SOCORRO VILLALOBOS on 07/31/161107 Valsartan (Diovan) 80 Mg Tablet, 0 PO DAILY, (Reported) Entered as Reported by: SOCORRO VILLALOBOS on 07/31/161107 Justicifation of Admission Dx: Justifications for Admission: Justification of Admission Dx: Yes SANDY JOE MD April 04, 2022 12:22
--- NOTE | 2022-04-04 13:01 | NUR ---
SS following up with discharge planning. SS reviewed pt chart and discussed with pt RN. Pt is currently on room air. Self pay. Med Assist following. Boot received from [facility]. Pt reporting that his disability is set up. Discharge order on the chart for home with self care.
--- NOTE | 2022-04-05 17:15 | PATHOLOGY ---
[facility] Accession Number: [id number] . 01 Material submitted: . hallux - LEFT GREAT TOE PROXIMAL MARGIN AT INKED FOR OSTEOMYELITIS RULE OUT . 01 Clinical history: . LT FOOT CELLULITIS, HYPER.... . 02 Diagnosis: Segment of bone and soft tissue, left partial hallux amputation: - No evidence of acute osteomyelitis; proximal bone amputation margin negative for acute osteomyelitis. - Focal hemorrhage and acute inflammation of periosteal soft tissues. (JPM:maddie; 04/04/2022) MBVimal 04/04/20221714 Local . 02 Electronically signed: . Almas Gillette MD, Pathologist NPI- [id number] . 01 Gross description: . The specimen is received in formalin, labeled "Robbie Cici, left great toe, proximal margin inked for osteomyelitis rule out". Received is a previously oriented, segment of bone, measuring 2.0 x 1.5 x 0.9 cm. The bone appears nagy-white, firm and is covered with unremarkable nagy-pink soft tissue. The bone displays 2 flattened ends, one of which is inked blue with surgical ink. The inked margin is additionally inked black. The specimen is trisected and entirely submitted in cassette A1. (JGG; 04/03/2022) JGG/JGG 04/04/20221711 Local . 02 Pathologist provided ICD-10: M79.89 . 02 CPT . 092151 Specimen Comment: A courtesy copy of this report has been sent to [phone] Specimen Comment: [id number] Specimen Comment: Report sent to / DR ACKERMAN Specimen Comment: A duplicate report has been generated due to demographic updates. Performed at: 01 [facility] [address], [place], [place] [id number] MD Napoleon Radford MD Phone: [phone] Performed at: 02 [facility] [address] [place], [place] [id number] MD Almas Gillette MD Phone: [phone]
--- NOTE | 2022-04-05 17:15 | PATHOLOGY ---
[facility] Accession Number: [id number] . 01 Material submitted: . hallux - LEFT BIG TOE PROXIMAL MARGIN IN INK; R/O OSTEOMYELITIS . 01 Clinical history: . R/O OSTEOMYELITIS, LT FOOT CELLULITIS . 02 Diagnosis: Portion of toe and separate segment of bone and soft tissue, left partial first toe amputation: - Focal ulceration of lateral toe with acute cellulitis involving lateral and plantar aspects of toe and with focal acute osteomyelitis. - Proximal amputation margin of phalangeal bone negative for acute osteomyelitis. 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 . (JPM:maddie/josse; 04/04/2022) MBR 04/05/2022 1113 Local . 02 Electronically signed: . Almas Gillette MD, Pathologist NPI- [id number] . 01 Gross description: . The specimen is received in formalin, labeled "Robbiedarrin DicksonCici, left big toe, proximal margin in ink". Received is an amputated digit measuring 4.8 x 3.2 x 3.0 cm in greatest dimensions. The bone margin is smooth and concave in appearance, consistent with disarticulation. The bone and soft tissue margins are inked black. The nail is present displaying a yellow-nagy and slightly thickened appearance. On the lateral aspect of the specimen, there is an ill-defined, irregular in contour and pink-menchaca, necrotic-appearing lesion measuring 2.1 x 1.7 cm, which grossly abuts the inked margin. Also on the plantar aspect at the proximal margin, there is a well-defined, flat, verrucoid and light nagy lesion measuring 1.1 x 0.5 cm. . Also received within the specimen container is an additional segment of bone displaying one blunt, transected margin (with blue ink), and one smooth, convex disarticulated margin measuring 2.0 x 1.5 x 1.4 cm in greatest dimensions. The transected margin is inked. The specimen is submitted representatively as follows: . A1 horizontal cross-section through lesion on lateral aspect of toe, to include underlying bone, following decalcification A2 longitudinal cross-section through bone margin of toe, to include plantar lesion, following decalcification A3 full-thickness longitudinal cross-section through separately submitted segment of bone, following decalcification. (CAA; 04/03/2022) QAC/QAC 04/03/2022 1110 Local . 02 Pathologist provided ICD-10: L98.499, L03.032, L85.8, R23.4 . 02 CPT . 594029, [id number], [id number] Specimen Comment: A courtesy copy of this report has been sent to [phone], [phone]- Specimen Comment: [id number] Specimen Comment: Report sent to / DR ROBERTSON Specimen Comment: A duplicate report has been generated due to demographic updates. Performed at: 01 [facility] [address], [place] [id number] MD Napoleon Radford MD Phone: [phone] Performed at: 02 [facility] [address] [place], [place] [id number] MD Almas Gillette MD Phone: [phone]
== END 2022-04-04 13:17 | disposition home or self-care (01) | DRG 617 ==
LOC: ER 16:53 → ED HOLD 19:18 → 6 SOUTH 21:00 → 5 NORTH 03-29 17:34
PROVIDERS: ADMIT Internal Medicine; ATTEND Internal Medicine
PROC: 0Y6Q0Z1 Detachment at Left 1st Toe, High, Open Approach (ICD-10-PCS; principal; 2022-04-01 16:00)
PROC: 0JBR0ZZ Excision of Left Foot Subcutaneous Tissue and Fascia, Open Approach (ICD-10-PCS; 2022-04-03)
DX: E11.69 Type 2 diabetes mellitus with other specified complication (principal); M86.172 Other acute osteomyelitis, left ankle and foot; L02.612 Cutaneous abscess of left foot; L03.116 Cellulitis of left lower limb; L03.032 Cellulitis of left toe; E11.621 Type 2 diabetes mellitus with foot ulcer; E11.42 Type 2 diabetes mellitus with diabetic polyneuropathy; E11.51 Type 2 diabetes mellitus with diabetic peripheral angiopathy without gangrene; E11.65 Type 2 diabetes mellitus with hyperglycemia; Z20.822 Contact with and (suspected) exposure to COVID-19; F17.210 Nicotine dependence, cigarettes, uncomplicated; F41.9 Anxiety disorder, unspecified; I10 Essential (primary) hypertension; I70.202 Unspecified atherosclerosis of native arteries of extremities, left leg; L97.529 Non-pressure chronic ulcer of other part of left foot with unspecified severity; Z82.49 Family history of ischemic heart disease and other diseases of the circulatory system; Z83.3 Family history of diabetes mellitus
CPT/HCPCS: 36415; 73630; 80048; 80053; 80202; 81001; 82962; 83036; 83605; 84145; 84484; 85025; 85651; 86140; 87040; 87075; 87076; 87077; 87186; 87426; 88305; 88311; 93923; 96361; 96365; 96367; 96375; A4209; A4930; A6253; A6402; A6443; A6449; A6450; J0360; J0696; J1100; J1644; J1815; J1885; J2250; J2405; J2543; J2704; J3010; J3370; J3490; J7030; J7040; J7050; J7120; 99285-25; G0378